=== PATIENT | female | born 1955 | race Caucasian/White ===

== ENCOUNTER → 2016-10-29 | Outpatient (CLI) | payer MEDICAID ==
[~2016-10-29] MED LIST: 'CLONIDINE0.1 MG PO; AMLODIPINE BESY10 MG PO; ANAPROX DS550 MG PO; ANTIVERT/2525 MG PO; APRESOLINE25 MG PO; ASPIRIN81 M1 PO; AUGMENTIN 875 M1 TAB PO; AVELOX400 MG PO; BACTRIM DS 8001 TA1 PO; BACTROBAN OINT0.9 GM T; BUMETANIDE1 MG IV; BUMETANIDE1 MG PO; BUMETANIDE2 MG PO; BUMEX2.5 MG/10 PO; CEFOXITIN IJ; CEFTIN500 M1 PO; CIPRO500 MG PO; CIPRO750 MG PO; CIPROFLOXACIN500 MG PO; CLARITIN10 MG PO; CLEOCIN PH600 MG/4 M IV; CLONIDINE HCL0.1 MG PO; CLONIDINE0.1 MG PO; CYMBALTA30 MG PO; DAYPRO600 M1 PO; DEXTROSE 50 ML50 M3 IV; DITROPAN XL5 MG PO; DITROPAN5 MG PO; DUONEB 3 MG/3 ML3 M1 NEB; FENOFIBRATE160 MG PO; FERREX 150150 MG PO; FIORICET 325 MG1 TAB PO; FLONASE ALLERG9.9 ML NAS; Ferrex 150150 MG PO; GABAPENTIN300 MG PO; GLYBURIDE5 MG PO; GUAIFENESIN600 MG PO; HUMALOG100 U/ML SC; HUMULIN 70/30 703 M1 SC; HUMULIN 70/30 703 M1 SQ; HUMULIN 70/30 PE3 ML SC; HUMULIN 70100 UNIT/1 SC; HUMULIN 70100 UNIT/1 SQ; HUMULIN R100 U/ML SC; HYDRALAZINE HC100 MG PO; HYDRALAZINE HYD50 MG PO; HYDROCODONE BIT1 T11 PO; Hydralazine Hyd25 MG PO; INDOCIN50 MG PO; INSULIN NOVOLOG SC; INSULIN REGULAR SQ; JANUVIA100 MG PO; KEFLEX500 MG PO; LABETALOL HCL100 MG PO; LABETALOL200 MG PO; LANTUS100 U/ML SC; LASIX40 MG PO; LISINOPRIL10 M1 PO; LISINOPRIL40 MG PO; LOFIBRA160 MG PO; LOPRESSOR25 MG PO; LOVASTATIN40 MG PO; MACROBID100 M1 PO; METOPROLOL25 MG PO; MUCINEX ER600 MG PO; MUSCLE RUB CRE113 GM TP; NEURONTIN300 MG PO; NITROGLYCER0.2 MG/HR TD; NORCO 5-325 TA1 EACH PO; NORMODYNE,TRAN200 MG PO; NORVASC2.5 MG PO; NOVAFERRUM 5050 MG PO; NOVAPLUS CLINDA1 SO1 IV; NOVOLIN 70100 UNIT/1 SQ; NOVOLOG MI100 UNIT/2 SC; NOVOLOG1 UNIT/0.0 IJ; NOVOLOG100 U/ML SC; OMEPRAZOLE40 MG PO; OS-CAL 500+D31 EAC1 PO; OXYBUTYNIN CHLOR5 MG PO; OXYGEN NAS; OYSTER CALCIUM500 M1 PO; Oscal,Oyster S500 MG PO; PEN-VEE K500 MG PO; PHOSLO667 MG PO; PRAMIPEXOLE DI0.5 MG PO; PREDNISONE5 MG; PRILOSEC20 M1 PO; PRILOSEC20 MG PO; REGLAN5 MG PO; SERTRALINE50 MG PO; TAMIFLU 75MG CA75 MG PO; TRICOR145 MG PO; Transderm-Nitr0.2 MG T; VICO10300 PO; VICODIN 5-3001 EACH PO; VICODIN 5/500 505 MG PO; VICODIN 500 MG-1 TAB PO; VITAMIN D1000 IU PO; VITAMIN D400 I1 PO; VITAMIN D50000 I3 PO; Vicodin 5/500 505 MG PO; ZOFRAN ODT8 MG PO; ZOFRAN4 MG PO; ZOLOFT50 MG PO; Zestril,Prinivi40 MG PO; Zofran4 MG PO
== END | disposition home or self-care (01) ==
LOC: MRI 02:10
DX: S91.101A Unspecified open wound of right great toe without damage to nail, initial encounter (principal); M86.8X7 Other osteomyelitis, ankle and foot; M62.571 Muscle wasting and atrophy, not elsewhere classified, right ankle and foot; X58.XXXA Exposure to other specified factors, initial encounter; Y93.89 Activity, other specified; Y92.89 Other specified places as the place of occurrence of the external cause; Y99.8 Other external cause status

== ENCOUNTER 2017-02-27 12:48 | Inpatient (IN) | payer MEDICAID ==
[~2017-02-27] VITALS: Ht 157.4 cm; Wt 102.7 kg
--- NOTE | ~2017-02-27 | WRIGHTHP ---
[place], [place] PATIENT HISTORY AND PHYSICAL EXAM NAME: SHERITA GOODEN [facility] #: [id number] UNIT #: [id number] ROOM: 426 DOCTOR: VALARIE BAPTISTE MD BIRTHDATE: [birth year] DOS: 02/27/2017 HISTORY OF PRESENT ILLNESS: The patient is 62 years old. The patient is very well known to us. The patient had her breakfast. Her blood sugar was 58 yesterday morning. She had her breakfast, which included toast, coffee and eggs and then took her 70/30 insulin, in about an hour or so her brother found her unresponsive with a blood sugar of 22, ambulance was called and brought to the emergency room. She denies having any chest pains, palpitations or shortness of breath. Denies having any fever or chills. She has been taking her blood sugars and it has been running low the last few days but has still been taking her regular dose of medicines without any reduction. PAST MEDICAL HISTORY: 1. Brittle diabetes type 2. 2. Chronic renal failure, stage 4. 3. Benign hypertension. 4. Failure to thrive. 5. Mixed hyperlipidemia. 6. Charcot joint. 7. Chronic pain from peripheral neuropathy. MEDICATIONS: She is on are Elavil 25 q.h.s., Bumex 2 mg b.i.d., duloxetine 30 daily, Os-Ander 500 daily, gabapentin 400 at bedtime, hydralazine 100 b.i.d., [place] 5 q.6h., labetalol 300 b.i.d., lisinopril 10 daily, lovastatin 40 daily, metoclopramide 5 t.i.d., omeprazole 20 daily, oxybutynin 5 daily, Requip 1 mg at bedtime; insulin 70/30, 25 units b.i.d.; nitroglycerin 0.2 mg daily. SOCIAL HISTORY: Nonsmoker, does not use any alcohol. PHYSICAL EXAMINATION: GENERAL: She is awake and alert and oriented. VITAL SIGNS: Blood pressure is 148/45, pulse of 75, respirations 18, temperature 98.4. LUNGS: Clear. HEART: Regular. ABDOMEN: Obese, soft, nontender. EXTREMITIES: Without any edema. LIZETH hose stockings bilaterally. ASSESSMENT AND PLAN: 1. The patient who has type 2 diabetes mellitus, which is brittle, presents with severe hypoglycemia. Sugars have been running in the 200s in the hospital so far. We will restart the 70/30 insulin. Did advise the patient that she should not be taking 25 units if her blood sugar is 58. 2. Benign hypertension, controlled. 3. Chronic pain, stable. Urinalysis will be done today. [place], [place] PATIENT HISTORY AND PHYSICAL EXAM [facility]: [facility] #: [id number] UNIT #: [id number] ROOM: 426 DOCTOR: VALARIE BAPTISTE MD BIRTHDATE: [birth year] VALARIE BAPTISTE MD CM:HISPHYS:PATIENT HISTORY AND PHYSICAL EXAMINATION [id number] VALARIE BAPTISTE MD 02/28/17 1440 interface
--- NOTE | ~2017-02-27 | DS ---
[place], [place] DISCHARGE SUMMARY NAME: SHERITA GOODEN [facility] #: [id number] UNIT #: [id number] ROOM: 426 DOCTOR: VALARIE BAPTISTE MD BIRTHDATE: [birth year] DOS: 03/01/2017 DIAGNOSES: 1. Type 2 diabetes mellitus, insulin-dependent with hypoglycemia. 2. Urinary tract infection, urine culture pending. 3. Benign hypertension. 4. Chronic renal failure. 5. Poor insight to medical problems. 6. Mixed hyperlipidemia. 7. Charcot joint. 8. Chronic pain from peripheral neuropathy. MEDICATIONS: Same as on admission. The only new prescription given was Ceftin 250 twice daily for 5 days. HOSPITAL COURSE: The patient is 62 years old, comes in with extreme hypoglycemia of 22, her blood sugar was 58 before breakfast, she did not do her breakfast and took the whole 25 units of 70/30 insulin and in an hour her blood sugar dropped to 22. She was found unresponsive by her brother and ambulance was called and brought to the emergency room. IV was not established en route, but she was given p.o. glucose after admission. Blood sugars have been checked every 2 hours, coverage was given. Urine was sent for culture, did not have the results yet, but the urinalysis is coming back positive. The patient is stable without any new problems and the plan is to continue the same insulin as she was prior to admission, but she is advised to cut back on the dosage if the blood sugar is below 100. The patient does not have any other complaints. Blood pressures are controlled and hemodynamically she is stable. There is no fever or toxicity. The plan therefore is to discharge her to home to follow up as an outpatient. VALARIE BAPTISTE MD CM:DISCHARG [phone] VALARIE BAPTISTE MD 03/01/17 1309 interface
--- NOTE | ~2017-02-27 | PR ---
[place], [place] PROGRESS NOTE [facility] [id number] UNIT #: [id number] ROOM: 426 DOCTOR: VALARIE BAPTISTE MD BIRTHDATE: [birth year] DOS: SUBJECTIVE: The patient is not having any new complaints. She did not have any hypoglycemic spells after admission. OBJECTIVE: VITAL SIGNS: Graphic trend shows pressure 161/54, pulse of 66, respirations 20, temperature 98. LUNGS: Clear. HEART: Regular. ABDOMEN: Obese, soft, nontender. EXTREMITIES: Without any edema. LABORATORY DATA: Urinalysis showed nitrite and leukocyte esterase positivity. Cultures are not available yet. ASSESSMENT AND PLAN: 1. Type 2 diabetes mellitus, brittle with hypoglycemia, which is corrected. The last few blood sugar readings were 303, 201 and 209. 2. Possible urinary tract infection. Urine culture has been sent, but patient will be placed on Ceftin. The patient is stable and can be discharged to home today. VALARIE BAPTISTE MD CM:PNTRANS [phone] VALARIE BAPTISTE MD 03/01/17 1315 interface
--- NOTE | 2017-02-27 13:08 | NUR ---
PT SITTING UP IN BED AWAKE ALERT ORIENTED BRTOTHER IN ROOM WITH PATIENT CALL LIGHT IN REACH
[2017-02-27 13:13] VITALS: BP 110/42
[2017-02-27 13:15] LABS: BASO # 0.1 10*3/uL (0.0-0.1); BASO % 0.6 % (0.0-1.0); EOS # 0.6 10*3/uL (0.0-0.4); EOS % 6.5 % (1.0-4.0); HEMATOCRIT 27.5 % (37.0-47.0); HEMOGLOBIN 8.7 g/dl (12.0-16.0); LYMPH # 1.6 10*3/uL (1.3-4.4); LYMPH % 17.5 % (27.0-41.0); MEAN CELL VOLUME 89.6 fl (81.0-99.0); MEAN CORPUSCULAR HGB 28.3 pg (27.0-31.0); MEAN CORPUSCULAR HGB CONC 31.6 g/dl (33.0-37.0); MEAN PLATELET VOLUME 9.2 fl (9.6-12.3); MONO # 0.9 10*3/uL (0.1-1.0); MONO % 10.2 % (3.0-9.0); NEUT # 5.8 10*3/uL (2.3-7.9); NEUT % 64.5 % (47.0-73.0); PLATELET COUNT AUTOMATED 304 10*3/uL (130-400); RED BLOOD COUNT 3.07 10*6/uL (4.10-5.10); RED CELL DISTRI WIDTH 13.6 % (0-14.5)
--- NOTE | 2017-02-27 13:18 | NUR ---
pt to ct scan no distress noted
[2017-02-27 13:25] LABS: ACT PARTIAL THROMBO TIME 25.8 SECONDS (20.8-31.5)
[2017-02-27 13:32] LABS: ALBUMIN 3.4 gm/dl (3.1-4.5); CREATININE 2.92 mg/dL (0.55-1.02); POTASSIUM 4.2 mmol/L (3.5-5.1); TOTAL PROTEIN 7.2 gm/dL (6.4-8.2); TROPONIN I 0.019 ng/ml (<0.045)
[2017-02-27 13:35] VITALS: BP 125/48
[2017-02-27 14:21] VITALS: BP 125/48
--- NOTE | 2017-02-27 14:45 | NUR ---
A 62, admitted to , under the services of VALARIE Mai MD with a diagnosis of UNRESPONSIVENESS. Chief complaint is HYPOGLYCEMIA'. Patient arrived via stretcher from ER. Monitor applied. Initial assessment completed. Vital signs taken and recorded. VALARIE MAI MD notified of admission to the unit. Orders received. See assessment for past medical history, medications and allergies. Patient and/or family oriented to unit. [facility]. Clothing/patient valuable form completed. JOJO HIDALGO
[2017-02-27] MEDS ORDERED: NOVOLIN 70100 UNIT/1 SQ (15:22)
[2017-02-27] MEDS ORDERED: LABETALOL HCL300 MG PO (15:54)
[2017-02-27] MEDS ORDERED: GABAPENTIN400 MG PO (15:55)
[2017-02-27] MEDS ORDERED: REQUIP1 M1 PO (15:55)
[2017-02-27 16:00] VITALS: BP 128/62
[2017-02-27] MEDS ORDERED: AMITRIPTYLINE25 MG PO (16:03)
[2017-02-27 20:00] VITALS: BP 151/45
--- NOTE | 2017-02-27 20:00 | NUR ---
PATIENT RESTING IN CHAIR AT BEDSIDE. WATCHING TV. NO NEEDS MADE. BED IN LOWEST POSITION, CALL LIGHT IN REACH
[2017-02-28] VITALS: BP 148/45
--- NOTE | 2017-02-28 00:40 | NUR ---
PATIENT RESTING IN CHAIR AT BEDSIDE WITH EYES CLOSED. NO S/S OF DSITRESS. BED IN LOWEST POSITION, CALL LIGHT IN REACH
--- NOTE | 2017-02-28 03:36 | NUR ---
24 HR chart check completed.
--- NOTE | 2017-02-28 04:17 | NUR ---
PATIENT REFUSING 0400 INSULIN
[2017-02-28 08:00] VITALS: BP 136/56
[2017-02-28 12:00] VITALS: BP 156/44
[2017-02-28 14:47] LABS: BILIRUBIN NEGATIVE (NEGATIVE); BLOOD NEGATIVE (NEGATIVE); CLARITY CLEAR (CLEAR); COLOR YELLOW (YELLOW); GLUCOSE 2+ (NEGATIVE); KETONE NEGATIVE (NEGATIVE); LEUKO ESTERASE 2+ (NEGATIVE); NITRITE POSITIVE (NEGATIVE); PH 5.5 (5.0-9.0); UROBILINOGEN 0.2 E.U./dl (0.2-1.0)
[2017-02-28 15:03] LABS: BACTERIA 2+; RBC 0-2 rbc/hpf (0-2); WBC TNTC wbc/hpf (0-5)
[2017-02-28 16:00] VITALS: BP 137/51
--- NOTE | 2017-02-28 19:39 | NUR ---
PATIENT SITTING IN CHAIR AT BEDSIDE WITH NO NEEDS MADE. WATCHING TV. BED IN LOWEST POSITOIN, CALL LIGHT IN REACH
[2017-02-28 20:00] VITALS: BP 158/45
[2017-03-01] VITALS: BP 161/54
--- NOTE | 2017-03-01 00:40 | NUR ---
24 HR chart check completed.
--- NOTE | 2017-03-01 01:35 | NUR ---
PATIENT RESTING IN CHAIR WITH NO S/S OF DISTRESS. RESPS EASY AND REGULAR. BED IN LOWEST POSTITION, CALL LIGHT IN REACH
[2017-03-01 08:00] VITALS: BP 137/42
--- NOTE | 2017-03-01 08:00 | NUR ---
PT HAS SKIN TEAR TO TOE, DOES NOT WANT PHOTOGRAPHED, DOES NOT CURRENTLY HAVE WOUND ORDERS OTHER THAN CLEAN AND DRESS WITH BANDAID. PT AWARE MAY CONTINUE TO KEEP COVERED WITH BANDAID AT HOME.
[2017-03-01] MEDS ORDERED: CEFUROXIME AXE250 MG PO (08:08)
--- NOTE | 2017-03-01 08:30 | NUR ---
Control Supervisor in to talk to patient. Patient states lives at HOME with HER BROTHER. There are 0 steps in the home. Physician: DR BAPTISTE Pharmacy: [facility] health services: NONE Patient's level of ADLs: MINIMAL ASSIST Patient has working utilities: YES DME: NONE Follow-up physician's appointment after d/c: PREFERS TO MAKE HER OWN APPT Does patient want to access PORTAL?: Discharge plan HOME. FLAVIA JAMES DENIES ANY DC NEEDS.
--- NOTE | 2017-03-01 08:52 | NUR ---
PT IS TO BE D/C HOME TODAY. CARDIACD MONITOR OFF AND IV LEFT FA OUT- DRESSING APPLIED.
--- NOTE | 2017-03-01 09:30 | NUR ---
Discharge instructions reviewed with patient. Patient receptive and verbalizes understanding. Follow-up care understood. Written instructions given to patient. pt understands to pickle cutter new rx at pharmacy. understands insulin, no questions at this time YOLANDA DHILLON
== END 2017-03-01 09:30 | disposition home or self-care (01) | DRG 638 ==
LOC: ED 12:48 → EDHOLD 14:02 → 4E 14:02
PROVIDERS: Nurse Practitioner Family; ADMIT Internal Medicine
DX: E11.649 Type 2 diabetes mellitus with hypoglycemia without coma (principal); N39.0 Urinary tract infection, site not specified; N18.4 Chronic kidney disease, stage 4 (severe); E11.22 Type 2 diabetes mellitus with diabetic chronic kidney disease; E11.610 Type 2 diabetes mellitus with diabetic neuropathic arthropathy; I13.0 Hypertensive heart and chronic kidney disease with heart failure and stage 1 through stage 4 chronic kidney disease, or unspecified chronic kidney disease; I50.9 Heart failure, unspecified; J44.9 Chronic obstructive pulmonary disease, unspecified; D64.9 Anemia, unspecified; E78.2 Mixed hyperlipidemia; E11.42 Type 2 diabetes mellitus with diabetic polyneuropathy; G89.29 Other chronic pain; Z79.4 Long term (current) use of insulin; Z91.041 Radiographic dye allergy status; Z88.2 Allergy status to sulfonamides; Z88.8 Allergy status to other drugs, medicaments and biological substances; Z90.49 Acquired absence of other specified parts of digestive tract; Z90.710 Acquired absence of both cervix and uterus; Z98.51 Tubal ligation status; Z87.891 Personal history of nicotine dependence; Z82.49 Family history of ischemic heart disease and other diseases of the circulatory system; Z80.1 Family history of malignant neoplasm of trachea, bronchus and lung; Z82.0 Family history of epilepsy and other diseases of the nervous system; Z82.5 Family history of asthma and other chronic lower respiratory diseases

== ENCOUNTER 2017-03-27 20:22 | Inpatient (IN) | payer MEDICAID ==
[~2017-03-27] VITALS: Ht 157.4 cm; Wt 102.7 kg
--- NOTE | ~2017-03-27 | PR ---
[place], [place] PROGRESS NOTE NAME: SHERITA GOODEN [facility] #: [id number] UNIT #: [id number] ROOM: 523 DOCTOR: ROSA PIPER MD BIRTHDATE: [birth year] DOS: 03/31/2017 SUBJECTIVE: The patient continues to improve. OBJECTIVE: VITAL SIGNS: Blood pressure 157/72, heart rate of 66 beats per minute, breathing 16 times per minute, temperature 98 degrees Fahrenheit. GENERAL APPEARANCE: The patient is alert and oriented x 3, in no visible distress, except for generalized weakness. HEENT AND NECK: Exam within normal limits. CARDIOVASCULAR SYSTEM: Heart rate is regular in rate and rhythm. S1 and S2 normally audible. LUNGS: Clear to auscultation. ABDOMEN: Soft, nontender. No obvious organomegaly. Bowel sounds are present. EXTREMITIES: Without significant cyanosis or edema. IMPRESSION: 1. The patient's acute over chronic kidney failure continues to improve with hydration with normal saline. I will repeat her serum electrolytes and BUN and creatinine tomorrow. 2. Urinary tract infections, Citrobacter amalonaticus sensitive to ceftriaxone, which is being given. 3. Major depression, recurrent, mild, being treated and controlled with Cymbalta 4. Mixed hyperlipidemia. The patient on lovastatin. 5. Advance adult failure to thrive. The patient working with Physical Therapy. 6. Uncontrolled type 2 diabetes mellitus. Blood sugars being monitored and treated. ROSA PIPER MD CM:PNTRANS [id number] ROSA PIPER MD 03/31/17 1546 interface
--- NOTE | ~2017-03-27 | WRIGHTHP ---
[place], [place] PATIENT HISTORY AND PHYSICAL EXAM NAME: SHERITA GOODEN [facility] #: [id number] UNIT #: [id number] ROOM: 523 DOCTOR: ROSA PIPER MD BIRTHDATE: [birth year] DOS: 03/27/2017 HISTORY OF PRESENT ILLNESS: The patient is a 62-year-old female with a history of: 1. Adult failure to thrive. 2. Type 2 diabetes mellitus. 3. Benign essential hypertension. 4. Chronic kidney disease stage 3. 5. Peripheral polyneuropathy with chronic pains. 6. Charcot joints. 7. Type 2 diabetes mellitus, insulin requiring. 8. Mixed hyperlipidemia. 9. The patient with urinary incontinence. 10. Diabetic gastroparesis. The patient presented to the Emergency Department at [facility] with failure to thrive, increasing weakness, poor appetite and feeling unwell for a few days and she was found to be in acute renal failure with BUN and creatinine of 101 and 3.8 apparently from not eating well recently and she already has diabetic nephropathy and chronic kidney disease. After admission, the patient states she is starting to feel better and eating better. No chest pain. No increasing shortness of breath. No other GI or urinary symptoms. REVIEW OF SYSTEMS: LUNGS: No increasing shortness of breath or wheezing. GASTROINTESTINAL: No nausea or vomiting, but poor appetite. No diarrhea or constipation. CARDIOVASCULAR: No chest pains or palpitations. FAMILY HISTORY: Noncontributory. MEDICATIONS: The patient takes insulin, hydralazine, labetalol, lisinopril, metoclopramide, omeprazole, oxybutynin, ropinirole and Cymbalta. ALLERGIES: Known allergies to IODINE, SULFUR. PHYSICAL EXAMINATION: GENERAL: Alert, oriented, not a very good historian, in no visible distress. The patient has generalized weakness. HEENT AND NECK: Extraocular movements are intact. Sclerae are anicteric. Oral mucosa is moist and clean. No obvious facial weakness. Neck is supple without any lymphadenopathy. No thyromegaly. No JVD. No carotid arterial bruits. LUNGS: Clear to auscultation. No wheezing. No rhonchi. CARDIOVASCULAR SYSTEM: Heart rate is regular in rate and rhythm. S1 and S2 normally audible. No significant murmur or any other abnormal cardiac sounds. ABDOMEN: Soft, nontender. No obvious organomegaly. Bowel sounds are present. No obvious herniation. EXTREMITIES: Without significant cyanosis or edema. Warm to touch. Right [place], [place] PATIENT HISTORY AND PHYSICAL EXAM NAME: SHERITA GOODEN [facility] #: [id number] UNIT #: [id number] ROOM: 523 DOCTOR: ROSA PIPER MD BIRTHDATE: [birth year] great toe chronic infected wound without any bone involvement on x-ray at admission. CENTRAL NERVOUS SYSTEM: Alert and oriented x 3. Cranial nerves II-XII are intact. Speech is normal. The patient is able to move all extremities. Normal muscle strength. Deep tendon reflexes are equal on both sides. Plantars were downgoing. LABORATORY DATA: BUN and creatinine elevated to 101 and 3.8 and improving. Hemoglobin 9.6. IMPRESSION: 1. The patient with chronic right toe wound infection, being treated and followed at the wound center. 2. Acute tubular necrosis and acute kidney failure with elevation of BUN and creatinine to 101 and 3.8, to be treated with hydration with normal saline. Apparently, the acute kidney failure is because of her chronic diabetic nephropathy and dehydration from the patient feeling sick and not eating well for last several days. I will follow her kidney function on daily basis with a basic metabolic profile. 3. Type 2 diabetes mellitus. Blood sugars to be monitored and treated. The patient kept on no concentrated sweet diet. Her blood sugars are elevated, ranging between 190 to 300 range. I will adjust treatment as necessary. I continued her home dose of insulin and kept her on a no concentrated sweet diet. 4. Benign essential hypertension. I will monitor blood pressures and treat accordingly. ROSA PIPER MD CM:HISPHYS:PATIENT HISTORY AND PHYSICAL EXAMINATION 19 ROSA PIPER MD 03/30/17 1030 interface
--- NOTE | ~2017-03-27 | PR ---
[place], [place] PROGRESS NOTE NAME: SHERITA GOODEN [facility] #: [id number] UNIT #: [id number] ROOM: 523 DOCTOR: ROSA PIPER MD BIRTHDATE: [birth year] DOS: 03/29/2017 SUBJECTIVE: The patient is starting to feel much better. She has no new complaints. OBJECTIVE: VITAL SIGNS: Blood pressure 175/57, heart rate 61 beats per minute, breathing normally, afebrile. GENERAL APPEARANCE: The patient is alert and oriented x 3, in no visible distress, except for some obesity and generalized weakness. HEENT AND NECK: Exam within normal limits. CARDIOVASCULAR SYSTEM: Heart rate is regular in rate and rhythm. S1 and S2 normally audible. LUNGS: Clear to auscultation. ABDOMEN: Soft, nontender. No obvious organomegaly. Bowel sounds are present. EXTREMITIES: Without significant cyanosis or edema. IMPRESSION: 1. The patient with urinary tract infection, urine growing heavy gram-negative bacilli, to be treated with IV Rocephin and we will wait for urine culture results. Blood cultures also have been negative so far and no significant leukocytosis. 2. Acute over chronic kidney failure, acute tubular necrosis with elevation of BUN and creatinine, which is improving with hydration with normal saline. 3. Uncontrolled type 2 diabetes mellitus. Blood sugars are being monitored and better controlled, 125 on the basic metabolic profile today, now ranging between 130 to 240 mostly, occasionally higher. 4. Obesity and adult failure to thrive. 5. Benign Essential hypertension. Blood pressure is elevated. I will adjust her treatment and continue her home medications. 6. Mixed hyperlipidemia, treated with lovastatin. 7. Major depression, recurrent, mild. We treated and controlled with Cymbalta. ROSA PIPER MD CM:PNTRANS [phone] ROSA PIPER MD 03/29/172203 interface
--- NOTE | ~2017-03-27 | PR ---
[place], [place] PROGRESS NOTE NAME: SHERITA GOODEN [facility] #: [id number] UNIT #: [id number] ROOM: 523 DOCTOR: ROSA PIPER MD BIRTHDATE: [birth year] DOS: 03/30/2017 SUBJECTIVE: The patient continues to improve. She is starting to feel better. OBJECTIVE: VITAL SIGNS: Blood pressure 146/72, heart rate 60 beats per minute, breathing 16 times per minute, temperature 98 degrees Fahrenheit. GENERAL APPEARANCE: The patient is alert and oriented x 3, in no visible distress, except for generalized weakness, morbid obesity. HEENT AND NECK: Exam within normal limits. CARDIOVASCULAR SYSTEM: Heart rate is regular in rate and rhythm. S1 and S2 normally audible. LUNGS: Clear to auscultation. ABDOMEN: Soft, nontender. No obvious organomegaly. Bowel sounds are present. EXTREMITIES: Without significant cyanosis or edema. IMPRESSION: 1. The patient with acute over chronic kidney disease and acute tubular necrosis, continues to improve with hydration and normal saline. BUN and creatinine of 70 and 2.5 today with normal serum electrolytes. 2. Urinary tract infection with Citrobacter amalonaticus sensitive to ceftriaxone, which she is receiving. 3. Major depression, recurrent, mild, being treated and controlled with Cymbalta. 4. Mixed hyperlipidemia, treated with lovastatin. 5. Adult failure to thrive. 6. Uncontrolled type 2 diabetes mellitus. Blood sugars are being monitored and treated. ROSA PIPER MD CM:PNTRANS [phone] ROSA PIPER MD 03/30/172101 interface
--- NOTE | ~2017-03-27 | DS ---
[place], [place] DISCHARGE SUMMARY NAME: SHERITA GOODEN [facility] #: [id number] UNIT #: [id number] ROOM: 523 DOCTOR: ROSA PIPER MD BIRTHDATE: [birth year] DOS: 04/01/2017 DISCHARGE DIAGNOSES: 1. Acute over chronic kidney failure, improved with hydration. 2. Uncontrolled type 2 diabetes mellitus. 3. Adult failure to thrive. 4. Mixed hyperlipidemia. 5. Major depression, recurrent, mild. 6. Urinary tract infection with Citrobacter amalonaticus, treated with ceftriaxone. 7. Benign essential hypertension. 8. Chronic kidney disease stage 3. 9. Peripheral polyneuropathy and chronic pain. 10. Charcot joints. 11. Chronic urinary incontinence. 12. Diabetic gastroparesis. HOSPITAL COURSE: The patient was admitted at [facility] when she presented with poor appetite and feeling unwell for a few days and she was not eating well and her creatinine was found to be elevated to 3.8, stage 4 acute renal failure. The patient was admitted and started on hydration with normal saline and her kidney function has improved. The patient with underlying stage 3 chronic kidney disease. Apparently, she went into acute tubular necrosis from being sick and not getting hydrated and not eating well for a few days. The patient with underlying diabetic nephropathy stage 3, which makes her prone to kidney damage. The patient appears to have achieved maximal benefit from this admission and will be discharged to home today to follow up with her PCP, Dr. Johnson within a week. The patient has been asked to avoid any nephrotoxic medications, especially nonsteroidal anti-inflammatory medications. Urinary tract infection with Citrobacter amalonaticus sensitive to ceftriaxone, which was treated with the antibiotic. Blood cultures were negative. Uncontrolled type 2 diabetes mellitus, with poor compliance with diet. Blood sugars have improved with treatment. LABORATORY DATA: BUN and creatinine have improved to 37 and 1.7 prior to discharge. Hemoglobin of 9.6. DISCHARGE MANAGEMENT: Cymbalta 30 mg a day, ropinirole 1 mg daily, oxybutynin 2.5 mg b.i.d., omeprazole 20 mg daily, metoclopramide 5 mg t.i.d., lisinopril 10 mg a day, labetalol 300 mg b.i.d., hydralazine 100 mg b.i.d., Vicodin every 6 hours as needed p.r.n. for pain, gentamicin eyedrops to right eye daily. [place], [place] DISCHARGE SUMMARY NAME: SHERITA GOODEN UNIT #: [id number] ROOM: 523 DOCTOR: ROSA PIPER MD BIRTHDATE: [birth year] ROSA IPPER MD CM:DISCHARG 48 30 ROSA PIPER MD 04/01/172031 interface
[~2017-03-27 20:22] MED LIST changes: +AMITRIPTYLINE25 MG PO; +CEFUROXIME AXE250 MG PO; +GABAPENTIN400 MG PO; +LABETALOL HCL300 MG PO; +REQUIP1 M1 PO
[2017-03-27 20:29] VITALS: BP 152/45
[2017-03-27 21:03] VITALS: BP 155/53
[2017-03-27 21:19] LABS: BASO % 0.4 % (0.0-1.0); EOS # 0.6 10*3/uL (0.0-0.4); EOS % 6.5 % (1.0-4.0); HEMATOCRIT 30.3 % (37.0-47.0); HEMOGLOBIN 9.7 g/dl (12.0-16.0); LYMPH # 2.2 10*3/uL (1.3-4.4); LYMPH % 22.1 % (27.0-41.0); MEAN CELL VOLUME 88.6 fl (81.0-99.0); MEAN CORPUSCULAR HGB 28.4 pg (27.0-31.0); MEAN PLATELET VOLUME 10.2 fl (9.6-12.3); MONO # 1.2 10*3/uL (0.1-1.0); MONO % 12.6 % (3.0-9.0); NEUT # 5.7 10*3/uL (2.3-7.9); NEUT % 57.9 % (47.0-73.0); PLATELET COUNT AUTOMATED 314 10*3/uL (130-400); RED BLOOD COUNT 3.42 10*6/uL (4.10-5.10); RED CELL DISTRI WIDTH 13.3 % (0-14.5); WHITE BLOOD COUNT 9.8 10*3/uL (4.8-10.8)
[2017-03-27 21:34] LABS: ACT PARTIAL THROMBO TIME 23.5 SECONDS (20.8-31.5)
[2017-03-27 21:35] LABS: ALBUMIN 3.7 gm/dl (3.1-4.5); ALKALINE PHOSPHATASE 126 U/L (45-117); BUN 101 mg/dl (7-24); CHLORIDE 100 mmol/L (98-107); CREATININE 3.82 mg/dL (0.55-1.02); POTASSIUM 4.7 mmol/L (3.5-5.1); SGOT/AST 18 IU/L (3-35); SGPT/ALT 21 U/L (12-78); SODIUM 138 mmol/L (136-145); TOTAL PROTEIN 7.8 gm/dL (6.4-8.2)
[2017-03-27 21:38] LABS: TROPONIN I < 0.015 ng/ml (<0.045)
[2017-03-27 22:57] VITALS: BP 133/56
[2017-03-28] VITALS: BP 122/60
--- NOTE | 2017-03-28 01:29 | NUR ---
PT'S GLUCOSE 430 AT 0110. INSULIN GIVEN REQUESTED BY DR. PIPER. WILL CONINUE TO MONITOR PT.
[2017-03-28 03:08] LABS: BILIRUBIN NEGATIVE (NEGATIVE); BLOOD NEGATIVE (NEGATIVE); CLARITY SL CLOUDY (CLEAR); COLOR YELLOW (YELLOW); GLUCOSE 2+ (NEGATIVE); KETONE NEGATIVE (NEGATIVE); LEUKO ESTERASE 3+ (NEGATIVE); NITRITE POSITIVE (NEGATIVE); PH 5.5 (5.0-9.0); UROBILINOGEN 0.2 E.U./dl (0.2-1.0)
--- NOTE | 2017-03-28 03:10 | NUR ---
PT'S GLUCOSE CHECKED AGAIN TO SE EHOW INSULIN IS WORKING. PT'S GLUCOSE DOWN TO 379 IN AN HOUR. WILL RECHECK PERIODICALLY.
[2017-03-28 03:13] LABS: EPITHELIAL CELLS 15-20; WBC 41-50 wbc/hpf (0-5)
[2017-03-28 03:14] LABS: BACTERIA 2+
[2017-03-28 06:24] LABS: BASO # 0.1 10*3/uL (0.0-0.1); BASO % 0.5 % (0.0-1.0); EOS # 0.5 10*3/uL (0.0-0.4); EOS % 4.7 % (1.0-4.0); HEMATOCRIT 30.1 % (37.0-47.0); HEMOGLOBIN 9.6 g/dl (12.0-16.0); LYMPH # 1.4 10*3/uL (1.3-4.4); MEAN CELL VOLUME 89.6 fl (81.0-99.0); MEAN CORPUSCULAR HGB 28.6 pg (27.0-31.0); MEAN CORPUSCULAR HGB CONC 31.9 g/dl (33.0-37.0); MEAN PLATELET VOLUME 10.3 fl (9.6-12.3); MONO # 0.9 10*3/uL (0.1-1.0); MONO % 8.6 % (3.0-9.0); NEUT # 7.2 10*3/uL (2.3-7.9); NEUT % 71.6 % (47.0-73.0); PLATELET COUNT AUTOMATED 302 10*3/uL (130-400); RED BLOOD COUNT 3.36 10*6/uL (4.10-5.10); RED CELL DISTRI WIDTH 13.2 % (0-14.5); WHITE BLOOD COUNT 10.1 10*3/uL (4.8-10.8)
[2017-03-28 07:03] LABS: POTASSIUM 4.6 mmol/L (3.5-5.1)
[2017-03-28 07:07] LABS: CREATININE 3.65 mg/dL (0.55-1.02)
[2017-03-28 08:00] VITALS: BP 142/72; BP 149/48
--- NOTE | 2017-03-28 09:55 | NUR ---
OOB TO CHAIR, CALL LIGHT SYSTEM WITHIN REACH.
--- NOTE | 2017-03-28 10:12 | NUR ---
OOB TO CHAIR, CALL LIGHT SYSTEM WITHIN REACH.
[2017-03-28 12:00] VITALS: BP 140/62
--- NOTE | 2017-03-28 14:10 | NUR ---
DR PIPER IN TO SEE PT & MADE AWARE THAT PTS BLOOD SUGARS ARE RUNNING HIGH. QUESTIONED WHETHER OR NOT HE WANTED A SLIDING SCALE.
--- NOTE | 2017-03-28 14:48 | NUR ---
DISCUSSED WOUND CARE ORDERS WITH DR PIPER FOR THIS PT & PER DR PIPER, SINCE PT SEE'S A ENGRAVER RUBBER, TO CONTINUE TO HER NORMAL ROUTINE FOR WOUND CARE WHICH IS FROM DR MAYA IN [facility]. GENTAMYCIN DRSNG DAILY PER PT.
[2017-03-28 16:00] VITALS: BP 166/48
--- NOTE | 2017-03-28 16:12 | NUR ---
DR PIPER AWARE OF BS RESULTS, PREFERS NOT TO GIVE INSULIN COVERGE, STATES HE WILL MONITOR BS TRENDS & ADJUST 70/30 ACCORDINGLY.
[2017-03-28 20:00] VITALS: BP 143/66
--- NOTE | 2017-03-28 20:21 | NUR ---
PATIENT AWAKE SITTING UP IN CHAIR. PATIENT DENIES ANY PAIN/GENERALIZED DISCOMFORT AT THIS TIME. WILL MONITOR. CALL LIGHT LEFT IN REACH.
[2017-03-28] MEDS ORDERED: NORCO 5-325 TA1 EACH PO (21:37)
--- NOTE | 2017-03-28 21:45 | NUR ---
SPOKE TO REGARDING PATIENT'S REQUEST FOR NORCO, WHICH SHE TAKES AT HOME FOR ARTHRITIC PAIN. INSTRUCTED TO CONTINUE PATIENT'S NORCO 5/325 Q6H PRN FOR PAIN.
--- NOTE | 2017-03-28 22:00 | NUR ---
PO NORCO ADMINISTERED PER PRN ORDER FOR C/O ARTHRITIC PAIN IN LEFT LEG. PATIENT RATING IT 9/10. WILL MONITOR EFFECTIVENESS. CALL LIGHT LEFT IN REACH.
--- NOTE | 2017-03-28 23:04 | NUR ---
EARLIER MEDICATION EFFECTIVE PER PATIENT. WILL CONTINUE TO MONITOR. CALL LIGHT LEFT IN REACH.
[2017-03-29] VITALS: BP 155/49
--- NOTE | 2017-03-29 03:26 | NUR ---
PATIENT ASLEEP IN CHAIR AT THIS TIME. RESPIRATIONS EASY. NO S/S OF DISTRESS NOTED. WILL CONTINUE TO MONITOR. CALL LIGHT IN REACH.
[2017-03-29 06:34] LABS: POTASSIUM 4.8 mmol/L (3.5-5.1)
[2017-03-29 06:38] LABS: CREATININE 2.86 mg/dL (0.55-1.02)
[2017-03-29 08:00] VITALS: BP 154/48
--- NOTE | 2017-03-29 09:39 | NUR ---
DR PIPER HAS ORD SNF. SW WILL DISCUSS WITH PT.
--- NOTE | 2017-03-29 09:43 | NUR ---
SW DISCUSSED DISCHARGE PLANS WITH PT. pT ADAMNATLY REFUSES SNF OR HOME HEALTH SERVICES. PT STATES THAT SHE WAS IN [facility] FOR 18MONTHS AND WILL NOT GO BACK. PT LIVES WITH HER BROTHER WHO ASSISTS HER. HER BROTHER DOES NOT WANT PEOPLE COMING IN THE HOME. PT STATED THAT [facility] HAD ANASSESSMENT AND THEY SAID SHE DID NOT QUALIFY FOR SERVICS DUE TO LIVING WITH HER BROTHER WHO IS RETIRED.
[2017-03-29 12:00] VITALS: BP 170/50
--- NOTE | 2017-03-29 12:23 | NUR ---
PHYSICAL THERAPY Physical Therapy Evaluation completed this date. See eval document for further details. Will begin PT intervention to address the impairments of difficulty ambulating and decreased dynamic balance with gait during inpnt stay. Recommend d/c home as able. No home PT services needed[place] [address] based on chart review and PT eval. Sara Sinha, PT
--- NOTE | 2017-03-29 13:18 | NUR ---
PHYSICAL THERAPY Felisa was seen this PM 1:1 for her therapy gait pt was up in her bedside chair. Transfer sit/stand and up on standard walker MIN A X 1, standing balance CGA X 1, no LOB. Then start off gait with standard walker 30' X 1, MOD GUNCOTTON PACKER X 1, with cueing for gait safety. Then gait 60' X 1, with MOD GUNCOTTON PACKER X 1, cueing for safety. Will try wheeled walker tomorrow i think this will be safer then standard walker, Pt has IV pole this gait, and verbal cueing for gait safety. Pt is not safe up ambulating by herself at this time. Will see how wheeled walker will work for her tomorrow, Pt having right foot ulcer, [employer] LE[employer]ER.
--- NOTE | 2017-03-29 14:30 | NUR ---
SHERITA GOODEN [id number] Please refer to the physician's history and physical for past medical history, comorbid conditions, and allergies. Diagnosis: ARF,INFECTED ULCER OF SKIN Shivam Score: 15,AT RISK WOUND DESCRIPTIONS: Location of the wound: right great toe Thickness: Full Size: 0.5cm x 0.5cm x 0.2cm Tunneling: none Underminin o'clock to 12 o'clock 0.2cm depth Sinus Tract: none Presence of Exudate: Serous Amount: Light Color: Canseco Odor: None Periwound Skin Appearance: Normal Wound edges: callus Pain (associated with wound): patient denied at time of assessment How does patient state this happened? patient states she stepped on a nail 6 months ago. Patient has been following Dr. Alvarado and getting debridements. Patient states she cannot feel her feet. If wound is on legs/feet or hands, capillary refill time, pulses, color temp, sensation: Pulses present Surface the patient is resting on: Position Pro SKIN PREVENTION RECOMMENDATION: 1. Pressure redistribution support surface as appropriate 2. Elevate heels 3. Remove boots/TEDS every shift and reapply 4. Head of bed 30 degrees as tolerated 5. Assess nutrition and hydration 6. Manage moisture 7. Avoid the use of containment devices while in bed 8. Use absorptive products on surfaces limit layers of linens on bed 9. Turn and reposition every 1-2 hours in bed and every 1 hour in chair as tolerated 10. Weight shifts every 15 minutes while up in chair 11. Offloading with pillows or device to keep heels elevated off bed 12. Monitor skin at least every shift 13. Inspect under medical devices twice a day WOUND TREATMENT RECOMMENDATIONS: Dr. Alvarado orders per patient are gentamicin sulfate ointment 0.1% to wound and cover with bandaid.
[2017-03-29 16:00] VITALS: BP 175/57
--- NOTE | 2017-03-29 18:00 | NUR ---
A 62, admitted to 5E, under the services of Dr. FELIZ BARAHONA,ROSA Locke with a diagnosis of ACUTE RENAL FAILURE/DEHYDRATION. Chief complaint is NAUSEA. Patient arrived via wheel chair from ER. Monitor applied. Initial assessment completed. Vital signs taken and recorded. DR. FELIZ BARAHONA,ROSA Locke notified of admission to the unit. Orders received. See assessment for past medical history, medications and allergies. Patient and/or family oriented to unit. [facility] visitation policy reviewed. Clothing/patient valuable form completed. ABEL PANTOJA
[2017-03-29 20:00] VITALS: BP 186/61
[2017-03-29 21:30] VITALS: BP 158/72
--- NOTE | 2017-03-29 21:38 | NUR ---
PO NORCO ADMINISTERED PER PRN ORDER FOR PATIENT C/O LEFT LEG ARTHRITIS PAIN 11/09. WILL MONITOR EFFECTIVENESS. CALL LIGHT LEFT IN REACH.
--- NOTE | 2017-03-29 22:16 | NUR ---
PATIENT STATES EARLIER MEDICATION WAS EFEECTIVE. WILL CONTINUE TO MONITOR. CALL LIGHT LEFT IN REACH.
[2017-03-30] VITALS: BP 156/48
[2017-03-30 06:43] LABS: CREATININE 2.5 mg/dL (0.55-1.02); POTASSIUM 4.9 mmol/L (3.5-5.1)
--- NOTE | 2017-03-30 08:00 | NUR ---
VS STABLE ALERT & ORIENTATEDX3, HEART SOUNDS NORMAL, LUNGS DIMISHED THROUGHOUT, ELIZABETH, SKIN TURGOR GOOD, CAPILLARY REFILL<3 SECONDS, SKIN PINK WARM & DRY, SPO2 97% ON ROOM AIR, RESPIRATION 16 NON-LABORED, IV SITE ASYSTMAITC, BOWEL SOUNDSX4 ABDOMEN NON-DISTENED, DRESSING ON RIGHT GRATE TOE DRY INTACT, 2 PLUS NON-PITTING EDEMA IN LOWER LEGS, PROTECTIVE DRESSING ON LEFT BOTTOM OF FOOT INTACT, NO COMPLAINTS OF PAIN AT THIS TIME. [facility]
[2017-03-30 08:19] VITALS: BP 158/62
--- NOTE | 2017-03-30 10:43 | NUR ---
SPOKE TO DR PIPER REGARDING GLUCOSE MONITORING AND ORDER RECIEVED TO CLARIFY PREVIOUS ORDER,ORDER RECIEVED. NOTIFIED DR PIPER ALSO OF MED REC AND PT REFUSING NITRO PATCH. PT STATED "SHE DOES NOT TAKE THIS MED ANYMORE",
--- NOTE | 2017-03-30 11:08 | NUR ---
PHYSICAL THERAPY Felisa seen this AM 1:1 for her therapy session and improving. All transfers were CGA X 1, no LOB. Gait today with wheeled walker 125' X 1, no LOB and little verbal cueing for gait safety. Pt up in her bedside chair call light and phone having no complaint. 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
--- NOTE | 2017-03-30 11:13 | NUR ---
DRESSING CHANGE TO COCCYX COMPLETED PER PHYSICIAN ORDERS. WET TO DRY APPLIED, RIGHT POSTERIOR CALF/BACK OF KNEE CLEANSED PER ORDER, THERAHONEY APPLIED. DRY DRESSING WITH CURLEX WRAP APPLIED. HYDROGUARD APPLIED. PT TOLERATED WELL. VOICES NO OTHER NEEDS. CALL LIGHT IN [facility].
[2017-03-30 12:00] VITALS: BP 146/72
--- NOTE | 2017-03-30 14:58 | NUR ---
ESTRADA SPOKE WITH PT AGAIN ABOUT DISCHARGE PLANS. PT WILL ACCEPT HOME HEALTH NURSE FOR A SHORT PERIOD OF TIME. [facility].
--- NOTE | 2017-03-30 15:47 | NUR ---
Patient resting quietly with no c/o discomfort. Respirations easy and regular. Vital signs stable. No overt distress. ROBYN DICKERSON
[2017-03-30 16:00] VITALS: BP 169/56
--- NOTE | 2017-03-30 17:21 | NUR ---
Patient resting quietly with no c/o discomfort. Respirations easy and regular. Vital signs stable. No overt distress. ROBYN DICKERSON
[2017-03-30 20:00] VITALS: BP 170/62
[2017-03-31] VITALS: BP 153/48
--- NOTE | 2017-03-31 03:49 | NUR ---
PATIENT ASLEEP IN CHAIR AT THIS TIME. RESPIRATIONS EASY. NO S/S OF DISTRESS NOTED. ON ROOM AIR. WILL MONITOR. CALL LIGHT LEFT IN REACH.
--- NOTE | 2017-03-31 05:46 | NUR ---
PATIENT STATES SHE CANNOT TAKE BOTH HER REGULAR INSULIN AND 70/30 AT THE SAME TIME. STATES SHE LIKED HOW IT WAS BEFORE: 70/30 AT 0500 & 1600 AND REGULAR QID (BEGINNING AT 1000). STATES THAT IS HOW SHE DOES IT AT HOME AND WOULD LIKE IT TO BE CHANGED BACK. MEDICATION REPROFILED PER PATIENT REQUEST. SCHEDULED 70/30 GIVEN FOR A BSG OF 231
[2017-03-31 08:00] VITALS: BP 157/72
--- NOTE | 2017-03-31 08:00 | NUR ---
VS STABLE ALERT ORIENTATEDX3, HEART SOUNDS NORMAL, LUNGS DIMISHED THROUGHOUT, ELIZABETH, SKIN TURGOR GOOD, SKIN PINK WARM DRY & INTACT, ABDOMEN SOFT NON-DISTNEDED BOWEL SOUNDSX4, 2 PLUS NON-PITTING EDEMA LOWER EXTREMITIES, PEDIAL PULSES+, DRESSING ON RIGHT GRATE TOE IS DRY INTACT, NO COMPLAINTS AT THIS TIME WILL CONTINUE TO MONITOR [facility]
--- NOTE | 2017-03-31 08:00 | NUR ---
ASSUMED CARE OF PATIENT, PATIENT IS SITTING UP IN CHAIR EATING HER BREAKFAST. SHE IS ALERT AND ORIENTED, PLEASANT DEMEANOR.
--- NOTE | 2017-03-31 09:30 | NUR ---
DR PIPER ON FLOOR REPORTED TO HIM PATIENT REFUSED NOVLIN FOR BGM OF 166 ALSON REFUSED NITROGLYCERIN 0.2 MG PATCH. [facility]
--- NOTE | 2017-03-31 09:45 | NUR ---
DOCOTOR IN TO SEE PATIENT SEE NEW ORDERS. [facility]
[2017-03-31 12:00] VITALS: BP 180/62
[2017-03-31 13:33] VITALS: BP 162/62
[2017-03-31 16:00] VITALS: BP 118/56; BP 157/58
[2017-03-31 20:00] VITALS: BP 154/51
--- NOTE | 2017-03-31 22:39 | NUR ---
BGM 76 AT 2200. PT DENIES SYMPTOMS. ORANGE JUICE AND PEANUT BUTTER AND CRACKERS WERE GIVEN.
--- NOTE | 2017-03-31 23:41 | NUR ---
PRN PAIN MEDICATION ADMINISTERED PER PATIENTS REQUEST FOR L KNEE PAIN RATED 7/10. WILL EVALUATE FOR EFFECTIVENESS.
[2017-04-01] VITALS: BP 171/51
--- NOTE | 2017-04-01 00:45 | NUR ---
PRN PAIN MEDICATION EFFECTIVE. SLEEPING. EASY, REGULAR BREATHS, NO DISTRESS NOTED.
[2017-04-01 04:00] VITALS: BP 142/64; BP 142/78
[2017-04-01 06:58] LABS: CREATININE 1.73 mg/dL (0.55-1.02); POTASSIUM 4.6 mmol/L (3.5-5.1)
[2017-04-01 08:00] VITALS: BP 158/68
--- NOTE | 2017-04-01 08:00 | NUR ---
VS STABLE, ANOX3 ELIZABETH, LUNGS SOUNDS CRACKLES IN BASES, HEART SOUNDS NORMAL, SKIN TURGOR GOOD, SKIN PINK WARM & DRY INTACT, CAPILLARY REFILLS<3 SECONCDS BOWEL SOUNDSX4 ABDOMEN SOFT NON-DISTENED, EDEMA NOTED IN FINGERS, 2+ EDEMA IN LEGS, DRESSING ON RIGHT GRATE DRY INTACT, NO COMPLAINTS AT THIS TIME WILL CONTINUE TO MONITOR. [facility]
--- NOTE | 2017-04-01 08:41 | NUR ---
ASSUMED CARE OF PATIENT. PATIENT IS SITTING UP IN CHAIR. PATIENT IS IN GOOD SPIRITS AND COOPERATIVE. DECREASED PATIENT'S FLUIDS TO 60ML PER HOUR PER DR PIPER D/T PATIENT HAVING SLIGHT PUFFY LOOK AND CRACKLES IN BASES. WILL REASSESS IN ONE HOUR. STUDENT IS HERE WORKING WITH PATIENT TODAY WELL.
--- NOTE | 2017-04-01 09:34 | NUR ---
PATIENT REFUSED NITROGLYCERIN 0.2MG PATCH. [facility]
--- NOTE | 2017-04-01 10:15 | NUR ---
PHYSICAL THERAPY Patient presented to therapy with report of feeling good and wanting to go home. Patient performed sit to stand with Supervision. Patient performed gait with W/W and IV pole attached with Supervision for 200' x 1. Patient was left in seated position with call light within reach. Patient was 1:1 with this HALF BACKER for 15 minutes total. CAMRON AYALA PTA
[2017-04-01 12:00] VITALS: BP 152/74
--- NOTE | 2017-04-01 14:49 | NUR ---
PHYSICAL THERAPY Patient presented ot therapy for 2 nd time today in seated position in bedside chair. Patient performed sit to stand transfer with Supervision. Patient performed gait with W/W and CGA X 1 for 200' x 1. Patient tolerated gait very well with no LOB, SOB, or other difficulty. Patient was 1:1 with this LICENSED OPTICIAN for 15 minutes. CAMRON AYALA LICENSED OPTICIAN
--- NOTE | 2017-04-01 15:45 | NUR ---
PT WILL RECEIVE [facility] WHEN DISCHARGED WHEN MEDICALLY STABLE.
[2017-04-01 16:00] VITALS: BP 181/53
--- NOTE | 2017-04-01 20:03 | NUR ---
PATIENT DISCHARGED AT THIS TIME. 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 LEFT FACILITY AT THIS TIME.
--- NOTE | 2017-04-02 08:34 | NUR ---
PHYSICAL THERAPY CO-SIGN I approve of the Phyical Therapy notes written above. KATIE GUAN PT
--- NOTE | 2017-04-02 08:52 | NUR ---
ESTRADA FAXED REFERRAL FOR HOME HEALTH SERVICES TO [facility]. ESTRADA [facility] WAS BEING FA[facility]ED.
--- NOTE | 2017-04-02 11:09 | NUR ---
SW RECEIVED CALL FROM [facility] THAT REFERRAL WAS NOT ACCEPTED AT THIS TIME.
== END 2017-04-01 20:03 | disposition home or self-care (01) | DRG 689 ==
LOC: ED 20:22 → EDHOLD 22:02 → 5E 22:02
PROVIDERS: Student in an Organized Health Care Education/Training Program; ADMIT Internal Medicine
DX: N39.0 Urinary tract infection, site not specified (principal); N17.0 Acute kidney failure with tubular necrosis; E11.22 Type 2 diabetes mellitus with diabetic chronic kidney disease; E11.42 Type 2 diabetes mellitus with diabetic polyneuropathy; K31.84 Gastroparesis; J44.0 Chronic obstructive pulmonary disease with (acute) lower respiratory infection; I13.0 Hypertensive heart and chronic kidney disease with heart failure and stage 1 through stage 4 chronic kidney disease, or unspecified chronic kidney disease; F33.0 Major depressive disorder, recurrent, mild; N18.4 Chronic kidney disease, stage 4 (severe); E11.65 Type 2 diabetes mellitus with hyperglycemia; E11.622 Type 2 diabetes mellitus with other skin ulcer; L08.9 Local infection of the skin and subcutaneous tissue, unspecified; L98.499 Non-pressure chronic ulcer of skin of other sites with unspecified severity; E78.2 Mixed hyperlipidemia; G89.29 Other chronic pain; R32 Unspecified urinary incontinence; E11.43 Type 2 diabetes mellitus with diabetic autonomic (poly)neuropathy; B96.89 Other specified bacterial agents as the cause of diseases classified elsewhere; E11.610 Type 2 diabetes mellitus with diabetic neuropathic arthropathy; R62.7 Adult failure to thrive; E66.09 Other obesity due to excess calories; I50.9 Heart failure, unspecified; Z91.11 Patient's noncompliance with dietary regimen; Z88.8 Allergy status to other drugs, medicaments and biological substances; Z88.2 Allergy status to sulfonamides; Z91.041 Radiographic dye allergy status; Z79.899 Other long term (current) drug therapy; Z79.4 Long term (current) use of insulin; Z90.710 Acquired absence of both cervix and uterus; Z90.49 Acquired absence of other specified parts of digestive tract; Z87.891 Personal history of nicotine dependence; Z82.0 Family history of epilepsy and other diseases of the nervous system; Z80.1 Family history of malignant neoplasm of trachea, bronchus and lung; Z68.33 Body mass index [BMI] 33.0-33.9, adult

== ENCOUNTER 2017-04-10 07:34 | Inpatient (IN) | payer MEDICAID ==
[~2017-04-10] VITALS: Ht 152.4 cm; Wt 98.1 kg
--- NOTE | ~2017-04-10 | PR ---
[place], [place] PROGRESS NOTE NAME: SHERITA GOODEN UNIT #: [id number] ROOM: 412 DOCTOR: ROSA PIPER MD BIRTHDATE: [birth year] DOS: 04/13/2017 SUBJECTIVE: The patient continues to improve. OBJECTIVE: VITAL SIGNS: Blood pressure 161/62, heart rate 64 beats per minute, breathing 18 times per minute, temperature 98 degrees Fahrenheit. GENERAL APPEARANCE: The patient is alert and oriented x 3, in no visible distress, except for generalized weakness and moderate obesity. HEENT AND NECK: Exam within normal limits. CARDIOVASCULAR SYSTEM: Heart rate is regular in rate and rhythm. S1 and S2 normally audible. LUNGS: Clear to auscultation. ABDOMEN: Soft, nontender. No obvious organomegaly. Bowel sounds are present. EXTREMITIES: Without significant cyanosis or edema. IMPRESSION AND PLAN: 1. The patient with type 2 diabetes mellitus and uncontrolled blood sugars because she is a brittle diabetic as well as she is poorly compliant with her diet. At the hospital, blood sugars were ranging between 80 to 250 mostly and this was without the 25 units of 70/30 insulin that she takes at home twice a day. The patient's sugars are lower and she is not requiring insulin at the hospital that she takes at home because she is apparently noncompliant with her diabetic diet. 2. Acute over chronic kidney failure related to hyperglycemia and glucosuria that happens at home when her sugars are high, leading to acute kidney failure and recurrent admissions to the hospital. 3. Old age, adult failure to thrive, recommended longterm placement, but the patient is refusing to go and she would rather be discharged to home. 4. Adult failure to thrive and recurrent admissions to the hospital. 5. Benign essential hypertension with better controlled blood pressures now. 6. Major depression, recurrent, mild, followed and treated. 7. Urinary tract infection with only 25,000 colonies of resistant Escherichia coli, being treated appropriately with ceftriaxone. [place], [place] PROGRESS NOTE NAME: SHERITA GOODEN UNIT #: [id number] ROOM: 412 DOCTOR: ROSA PIPER MD BIRTHDATE: [birth year] ROSA PIPER MD CM:KRYSTIN [id number] ROSA PIPER MD 04/14/17 0354 interface
--- NOTE | ~2017-04-10 | DS ---
[place], [place] DISCHARGE SUMMARY NAME: SHERITA GOODEN [facility] #: [id number] UNIT #: [id number] ROOM: 412 DOCTOR: ROSA PIPER MD BIRTHDATE: [birth year] DOS: 04/14/2017 DISCHARGE DIAGNOSES: 1. Acute over chronic kidney failure, improved with treatment. 2. Type 2 diabetes mellitus, uncontrolled with poor compliance with diet. 3. Adult failure to thrive and recurrent admissions to the hospital. 4. Benign essential hypertension. 5. Major depression, recurrent. 6. Urinary tract infection with resistant Escherichia coli, treated with IV ceftriaxone. 7. Chronic kidney disease stage 3 and diabetic nephropathy. 8. Mixed hyperlipidemia. 9. Peripheral polyneuropathy with chronic pains and diabetic neuropathy. 10. Charcot joints. 11. Chronic urinary incontinence. 12. Diabetic gastroparesis. HOSPITAL COURSE: The patient presented to [facility] feeling unwell. The patient was found to have urinary tract infection and severe hyperglycemia. The patient was also feeling very weak and was in acute kidney failure again. The patient has recurrent admissions for acute kidney failure. Apparently, when she goes home, she is poorly compliant with her diet and develops hyperglycemia, reaching into 400s and sometimes into 500s, which leads to glucosuria and dehydration with acute kidney failure and readmission to the hospital. After admission, the patient was hydrated with normal saline and her sugar control improved when she was put on a no concentrated sweet diet. The patient's blood sugar is now ranging between 100-250 range, which is much better than her sugar control at home. Her sugars are better controlled despite of the fact that I took her off the 25 units of 70/30 insulin that she was taking at home twice a day. I suspect when patient goes home, she will start eating what she normally eats at home and become hyperglycemic and volume contracted followed by acute kidney failure again. I explained this to the patient in good detail and she understands that she has to stay away from sugars and refined carbohydrates0 Urinary tract infection resistant E. coli, treated with ceftriaxone. She only grew 25,000 colonies of E. coli sensitive to ceftriaxone. Uncontrolled type 2 diabetes mellitus with better controlled sugars now as mentioned above. The patient apparently poorly compliant with diet at home. The patient was educated on diet. Major depression, recurrent, mild, treated and controlled. Mixed hyperlipidemia was treated and followed. Benign essential hypertension with elevated blood pressures at admission have normalized with treatment. Systolic blood pressure is ranging between 111-160 and diastolic blood pressure is ranging between 40-62, reasonably controlled. [place], [place] DISCHARGE SUMMARY NAME: SHERITA GOODEN [facility] #: [id number] UNIT #: [id number] ROOM: [facility] DOCTOR: ROSA PIPER MD BIRTHDATE: [birth year] LABORATORY DATA: BUN and creatinine 49 and 2.3 after testing analyst restarted the patient on Bumex. I am reducing the patient's Bumex dose. ____ blood cultures were negative. Urine cultures grew E. coli as mentioned above. Chest x-ray showed no acute abnormality. DISCHARGE MANAGEMENT: Lisinopril 10 mg a day, Bumex 1 mg daily, labetalol 300 mg b.i.d., amlodipine 5 mg daily, regular insulin sliding scale, Vicodin p.r.n. ROSA PIPER MD CM:DISCHINNA [id number] ROSA PIPER MD 04/14/17 1216 interface
--- NOTE | ~2017-04-10 | WRIGHTHP ---
[place], [place] PATIENT HISTORY AND PHYSICAL EXAM NAME: SHERITA GOODEN [facility] #: [id number] UNIT #: [id number] ROOM: 412 DOCTOR: ROSA PIPER MD BIRTHDATE: [birth year] DOS: 04/10/2017 HISTORY OF PRESENT ILLNESS: The patient is a 62-year-old female with a past medical history of: 1. Chronic kidney disease stage 3. 2. Uncontrolled type 2 diabetes mellitus. 3. Adult failure to thrive. 4. Mixed hyperlipidemia. 5. Major depression, recurrent, mild. 6. Benign essential hypertension. 7. Peripheral polyneuropathy with chronic pains and diabetic neuropathy. 8. Charcot joints. 9. Chronic urinary incontinence. 10. Diabetic gastroparesis. The patient presented to the Emergency Department at [facility] with feeling unwell and she was found to have urinary tract infection and severe hyperglycemia. After initial treatment in the emergency department with IV insulin. she was recommended for admission and further management. After admission, the patient is starting to feel better and her sugars are being monitored and improving. No chest pain. No increasing shortness of breath. No GI or urinary symptoms. REVIEW OF SYSTEMS: LUNGS: No increasing shortness of breath or wheezing. GASTROINTESTINAL: No nausea, vomiting, diarrhea or constipation. CARDIOVASCULAR: No chest pains or palpitations. FAMILY HISTORY: Noncontributory. SOCIAL HISTORY: Lives at home. Denies smoking cigarettes, alcohol and drug abuse. HOME MEDICATIONS: Labetalol, amlodipine and other p.r.n. medications. ALLERGIES: Known allergies to IODINE, SULFA, and ASPARTAME. PHYSICAL EXAMINATION: GENERAL: Alert, oriented x 3,. generalized weakness. HEENT AND NECK: Extraocular movements are intact. Sclerae are anicteric. Oral mucosa is moist and clean. No obvious facial weakness. Neck is supple without any lymphadenopathy. No thyromegaly. No JVD. No carotid arterial bruits. LUNGS: Clear to auscultation. No wheezing. No rhonchi. CARDIOVASCULAR SYSTEM: Heart rate is regular in rate and rhythm. S1 and S2 normally audible. No significant murmur or any other abnormal cardiac sounds. ABDOMEN: Soft, nontender. No obvious organomegaly. Bowel sounds are present. [place], [place] PATIENT HISTORY AND PHYSICAL EXAM [id number] UNIT #: [id number] ROOM: 412 DOCTOR: ROSA PIPER MD BIRTHDATE: [birth year] No obvious herniation. EXTREMITIES: Without significant cyanosis or edema. Warm to touch. CENTRAL NERVOUS SYSTEM: Alert and oriented x 3. Cranial nerves II-XII are intact. Speech is normal. The patient is able to move all extremities. Normal muscle strength. Deep tendon reflexes are equal on both sides. Plantars were downgoing. CARDIOVASCULAR SYSTEM: ABDOMEN:. LABORATORY DATA: Chest x-ray showing no acute process. BUN and creatinine of 64 and 3.5. Hemoglobin 9.4. Urine cultures were negative. IMPRESSION: 1. The patient with acute over chronic kidney failure, acute tubular necrosis and elevated blood pressures, to be treated with hydration and I will get a Nephrology consult. 2. Urinary tract infection. We will wait for urine cultures and also treat her with antibiotics, monitor her white cell count and treat her according to culture results. 3. Type 2 diabetes mellitus, uncontrolled with severe hyperglycemia, is being treated with sliding scale of regular insulin and on no concentrated sweet diet and her blood sugars have improved. 4. Major depression, recurrent, mild, will be treated accordingly. 5. Mixed hyperlipidemia, to be followed and treated. 6. Benign essential hypertension with elevated blood pressures. I will adjust treatment. ROSA PIPER MD CM:HISPHYS:PATIENT HISTORY AND PHYSICAL EXAMINATION [phone] ROSA PIPER MD 04/10/172042 interface
--- NOTE | ~2017-04-10 | PR ---
[place], [place] PROGRESS NOTE [id number] UN[facility] #: [id number] ROOM: 412 DOCTOR: ROSA PIPER MD BIRTHDATE: [birth year] DOS: 04/11/2017 SUBJECTIVE: The patient continues to feel better and blood sugars are normalizing. OBJECTIVE: VITAL SIGNS: Blood pressure 111/45, heart rate 62 beats per minute, breathing 18 times per minute, temperature 98 degrees Fahrenheit. GENERAL APPEARANCE: The patient is alert and oriented x 3, in no visible distress. HEENT AND NECK: Exam within normal limits. CARDIOVASCULAR SYSTEM: Heart rate is regular in rate and rhythm. S1 and S2 normally audible. LUNGS: Clear to auscultation. ABDOMEN: Soft, nontender. No obvious organomegaly. Bowel sounds are present. EXTREMITIES: Without significant cyanosis or edema. IMPRESSION AND PLAN: 1. The patient with chronic kidney disease stage 4 with acute over chronic kidney failure, improving with treatment. 2. Uncontrolled type 2 diabetes mellitus with improving blood sugars with treatment. I will check her HbA1c. 2. Adult failure to thrive with recurrent admissions to the hospital. 3. Benign essential hypertension. The patient's blood pressures are normalizing with treatment. 4. Major depression, recurrent, mild, followed and treated. 5. Urinary tract infection, being treated. Urine culture is still pending. ROSA PIPER MD CM:PNTRANS [id number] ROSA PIPER MD 04/12/17 0338 interface
--- NOTE | ~2017-04-10 | PR ---
[place], [place] PROGRESS NOTE [facility] GOOD[id number] UN[facility] #: [id number] ROOM: 412 DOCTOR: ROSA PIPER MD BIRTHDATE: [birth year] DOS: 04/12/2017 SUBJECTIVE: The patient continues to feel better. OBJECTIVE: VITAL SIGNS: Blood pressure 152/57, heart rate is 66 beats per minute, breathing 18 times per minute, temperature 98 degrees Fahrenheit. GENERAL APPEARANCE: The patient is alert and oriented x 3, in no visible distress, except for generalized weakness. HEENT AND NECK: Exam within normal limits. CARDIOVASCULAR SYSTEM: Heart rate is regular in rate and rhythm. S1 and S2 normally audible. LUNGS: Clear to auscultation. ABDOMEN: Soft, nontender. No obvious organomegaly. Bowel sounds are present. EXTREMITIES: Without significant cyanosis or edema. IMPRESSION: 1. The patient with uncontrolled type 2 diabetes mellitus with severe hyperglycemia has improved and now her blood sugars are ranging between 97, occasionally going up to 300, much better controlled. 2. Acute over chronic kidney disease, kidney failure, improving with hydration with normal saline. 3. Urinary tract infection, resistant; Escherichia coli, sensitive to Zosyn, which will be started now. 4. Mixed hyperlipidemia, diet controlled. 5. Benign essential hypertension, with improving blood pressures with treatment. 6. Major depression, recurrent, mild, reasonably controlled. 7. The patient already on ceftriaxone, which covers for Escherichia coli. The patient only grew 25,000 colonies, which does not look like very serious infection. ROSA PIPER MD CM:PNTRANS [phone] ROSA PIPER MD 04/12/172235 interface
[2017-04-10 07:40] VITALS: BP 149/51
[2017-04-10 07:59] VITALS: BP 142/50
[2017-04-10 08:11] LABS: BILIRUBIN NEGATIVE (NEGATIVE); BLOOD NEGATIVE (NEGATIVE); CLARITY SL CLOUDY (CLEAR); COLOR YELLOW (YELLOW); GLUCOSE 3+ (NEGATIVE); KETONE TRACE (NEGATIVE); LEUKO ESTERASE TRACE (NEGATIVE); NITRITE NEGATIVE (NEGATIVE); UROBILINOGEN 0.2 E.U./dl (0.2-1.0)
[2017-04-10 08:18] LABS: BASO # 0.1 10*3/uL (0.0-0.1); BASO % 0.9 % (0.0-1.0); EOS # 0.5 10*3/uL (0.0-0.4); EOS % 6.3 % (1.0-4.0); HEMATOCRIT 29.1 % (37.0-47.0); HEMOGLOBIN 9.4 g/dl (12.0-16.0); LYMPH # 1.5 10*3/uL (1.3-4.4); MEAN CORPUSCULAR HGB 28.7 pg (27.0-31.0); MEAN CORPUSCULAR HGB CONC 32.3 g/dl (33.0-37.0); MEAN PLATELET VOLUME 10.1 fl (9.6-12.3); MONO # 0.9 10*3/uL (0.1-1.0); MONO % 11.2 % (3.0-9.0); NEUT # 5.1 10*3/uL (2.3-7.9); PLATELET COUNT AUTOMATED 311 10*3/uL (130-400); RED BLOOD COUNT 3.27 10*6/uL (4.10-5.10); RED CELL DISTRI WIDTH 13.2 % (0-14.5); WHITE BLOOD COUNT 8.1 10*3/uL (4.8-10.8)
[2017-04-10 08:21] LABS: BACTERIA 1+
[2017-04-10 08:32] LABS: ACT PARTIAL THROMBO TIME 25.2 SECONDS (20.8-31.5)
[2017-04-10 08:36] LABS: ALBUMIN 3.6 gm/dl (3.1-4.5); ALKALINE PHOSPHATASE 136 U/L (45-117); BUN 64 mg/dl (7-24); CHLORIDE 97 mmol/L (98-107); CREATININE 3.51 mg/dL (0.55-1.02); LIPASE 45 U/L (73-393); POTASSIUM 4.3 mmol/L (3.5-5.1); SGOT/AST 23 IU/L (3-35); SGPT/ALT 31 U/L (12-78); SODIUM 134 mmol/L (136-145); TOTAL PROTEIN 7.5 gm/dL (6.4-8.2); TROPONIN I < 0.015 ng/ml (<0.045)
[2017-04-10 10:17] VITALS: BP 154/44
[2017-04-10 10:45] VITALS: BP 180/50
[2017-04-10] MEDS ORDERED: PLAVIX75 M1 PO (11:36)
[2017-04-10] MEDS ORDERED: NORVASC5 MG PO (11:37)
[2017-04-10 12:00] VITALS: BP 151/49
[2017-04-10 16:00] VITALS: BP 167/54
[2017-04-11] VITALS: BP 153/51
[2017-04-11 06:35] LABS: CREATININE 2.49 mg/dL (0.55-1.02)
[2017-04-11 08:00] VITALS: BP 173/50
[2017-04-11 12:00] VITALS: BP 179/50
[2017-04-11 16:00] VITALS: BP 111/45
[2017-04-11 20:00] VITALS: BP 156/51
[2017-04-12 06:28] LABS: CREATININE 1.98 mg/dL (0.55-1.02); POTASSIUM 4.3 mmol/L (3.5-5.1)
[2017-04-12 08:00] VITALS: BP 158/49
[2017-04-12 16:00] VITALS: BP 152/57
[2017-04-13] VITALS: BP 165/46
[2017-04-13 06:50] LABS: CREATININE 1.98 mg/dL (0.55-1.02); PHOSPHOROUS 3.5 mg/dL (2.5-4.9); POTASSIUM 4.1 mmol/L (3.5-5.1)
[2017-04-13 07:50] VITALS: BP 160/52
[2017-04-13 16:00] VITALS: BP 161/62
[2017-04-13 20:00] VITALS: BP 164/47
[2017-04-14] VITALS: BP 131/41
[2017-04-14 06:27] LABS: ALBUMIN 3.5 gm/dl (3.1-4.5); CREATININE 2.3 mg/dL (0.55-1.02); PHOSPHOROUS 4.2 mg/dL (2.5-4.9); POTASSIUM 4.3 mmol/L (3.5-5.1)
[2017-04-14 08:00] VITALS: BP 152/50
[2017-04-14] MEDS ORDERED: BUMETANIDE1 MG PO (10:21)
== END 2017-04-14 11:20 | disposition home or self-care (01) | DRG 637 ==
LOC: ED 07:34 → 4E 09:47 → EDHOLD 09:47 → 4E 09:51
PROVIDERS: Emergency Medicine; Internal Medicine; ADMIT Internal Medicine
DX: E11.65 Type 2 diabetes mellitus with hyperglycemia (principal); N17.0 Acute kidney failure with tubular necrosis; E66.01 Morbid (severe) obesity due to excess calories; K31.84 Gastroparesis; I13.0 Hypertensive heart and chronic kidney disease with heart failure and stage 1 through stage 4 chronic kidney disease, or unspecified chronic kidney disease; I50.32 Chronic diastolic (congestive) heart failure; F33.0 Major depressive disorder, recurrent, mild; N39.0 Urinary tract infection, site not specified; N18.4 Chronic kidney disease, stage 4 (severe); Z68.41 Body mass index [BMI] 40.0-44.9, adult; E11.21 Type 2 diabetes mellitus with diabetic nephropathy; E11.42 Type 2 diabetes mellitus with diabetic polyneuropathy; R62.7 Adult failure to thrive; B96.20 Unspecified Escherichia coli [E. coli] as the cause of diseases classified elsewhere; E78.2 Mixed hyperlipidemia; G89.29 Other chronic pain; E11.610 Type 2 diabetes mellitus with diabetic neuropathic arthropathy; R32 Unspecified urinary incontinence; D63.8 Anemia in other chronic diseases classified elsewhere; Z16.20 Resistance to unspecified antibiotic; R31.9 Hematuria, unspecified; E86.0 Dehydration; J44.9 Chronic obstructive pulmonary disease, unspecified; E11.22 Type 2 diabetes mellitus with diabetic chronic kidney disease; R81 Glycosuria; E11.43 Type 2 diabetes mellitus with diabetic autonomic (poly)neuropathy; Z88.2 Allergy status to sulfonamides; Z88.8 Allergy status to other drugs, medicaments and biological substances; Z91.041 Radiographic dye allergy status; Z79.899 Other long term (current) drug therapy; Z79.4 Long term (current) use of insulin; Z90.49 Acquired absence of other specified parts of digestive tract; Z90.89 Acquired absence of other organs; Z90.710 Acquired absence of both cervix and uterus; Z98.51 Tubal ligation status; Z87.891 Personal history of nicotine dependence; Z82.49 Family history of ischemic heart disease and other diseases of the circulatory system; Z81.8 Family history of other mental and behavioral disorders; Z80.1 Family history of malignant neoplasm of trachea, bronchus and lung; Z83.6 Family history of other diseases of the respiratory system; Z91.11 Patient's noncompliance with dietary regimen; Z71.3 Dietary counseling and surveillance

== ENCOUNTER 2017-04-17 18:09 | Emergency (ER) | payer MEDICAID ==
[~2017-04-17] VITALS: Ht 157.4 cm; Wt 98.4 kg
[~2017-04-17 18:09] MED LIST changes: +NORVASC5 MG PO; +PLAVIX75 M1 PO
[2017-04-17 20:52] LABS: BASO # 0.1 10*3/uL (0.0-0.1); BASO % 0.9 % (0.0-1.0); EOS # 0.5 10*3/uL (0.0-0.4); EOS % 6.5 % (1.0-4.0); HEMATOCRIT 31.2 % (37.0-47.0); HEMOGLOBIN 10.1 g/dl (12.0-16.0); LYMPH # 1.8 10*3/uL (1.3-4.4); LYMPH % 23.7 % (27.0-41.0); MEAN CELL VOLUME 88.1 fl (81.0-99.0); MEAN CORPUSCULAR HGB 28.5 pg (27.0-31.0); MEAN CORPUSCULAR HGB CONC 32.4 g/dl (33.0-37.0); MEAN PLATELET VOLUME 10.9 fl (9.6-12.3); MONO # 0.8 10*3/uL (0.1-1.0); MONO % 10.7 % (3.0-9.0); NEUT # 4.4 10*3/uL (2.3-7.9); NEUT % 57.7 % (47.0-73.0); PLATELET COUNT AUTOMATED 314 10*3/uL (130-400); RED BLOOD COUNT 3.54 10*6/uL (4.10-5.10); RED CELL DISTRI WIDTH 13.2 % (0-14.5); WHITE BLOOD COUNT 7.7 10*3/uL (4.8-10.8)
[2017-04-17 21:08] LABS: BILIRUBIN NEGATIVE (NEGATIVE); BLOOD NEGATIVE (NEGATIVE); CLARITY CLEAR (CLEAR); COLOR YELLOW (YELLOW); GLUCOSE 1+ (NEGATIVE); KETONE NEGATIVE (NEGATIVE); LEUKO ESTERASE NEGATIVE (NEGATIVE); NITRITE NEGATIVE (NEGATIVE); SPECIFIC GRAVITY <= 1.005 (1.005-1.030); UROBILINOGEN 0.2 E.U./dl (0.2-1.0)
[2017-04-17 21:09] LABS: CREATININE 3.47 mg/dL (0.55-1.02)
[2017-04-17 21:14] LABS: HYALINE CAST 0-2
[2017-04-18 05:37] LABS: CREATININE 3.01 mg/dL (0.55-1.02); POTASSIUM 4.7 mmol/L (3.5-5.1)
[2017-04-18 06:16] VITALS: BP 166/67
== END 2017-04-18 07:57 | disposition home or self-care (01) ==
LOC: ED 18:09
PROVIDERS: Emergency Medicine Emergency Medical Services
DX: E86.0 Dehydration (principal); E66.01 Morbid (severe) obesity due to excess calories; I13.2 Hypertensive heart and chronic kidney disease with heart failure and with stage 5 chronic kidney disease, or end stage renal disease; E11.22 Type 2 diabetes mellitus with diabetic chronic kidney disease; N18.5 Chronic kidney disease, stage 5; I50.9 Heart failure, unspecified; Z91.14 Patient's other noncompliance with medication regimen; Z90.49 Acquired absence of other specified parts of digestive tract; Z90.710 Acquired absence of both cervix and uterus; Z87.891 Personal history of nicotine dependence; Z98.51 Tubal ligation status; Z79.899 Other long term (current) drug therapy; Z79.4 Long term (current) use of insulin; Z91.041 Radiographic dye allergy status; Z88.2 Allergy status to sulfonamides; Z88.8 Allergy status to other drugs, medicaments and biological substances

== ENCOUNTER 2017-04-20 10:43 | Inpatient (IN) | payer MEDICAID ==
[~2017-04-20] VITALS: Ht 157.5 cm; Wt 99.3 kg
--- NOTE | ~2017-04-20 | PR ---
[place], [place] PROGRESS NOTE NAME: [id number] UN[facility] #: [id number] ROOM: 402 DOCTOR: VALARIE BAPTISTE MD BIRTHDATE: [birth year] DOS: 04/22/2017 SUBJECTIVE: The patient is doing well without any complaints this morning. OBJECTIVE: VITAL SIGNS: Graphic trend shows a pressure of 156/44, pulse is 66, respirations 18, temperature 97.8. LUNGS: Diminished breath sounds, clear. HEART: Regular. ABDOMEN: Obese, soft, nontender. EXTREMITIES: Without any edema. ASSESSMENT AND PLAN: 1. Type 2 diabetes mellitus, insulin-dependent, better controlled here. Labs noted from yesterday. 2. Chronic renal insufficiency, stage 4, on diuretics and NELY inhibitors, dosages were cut back. 3. Adult failure to thrive. She is expected at [facility], so plan is to discharge her today. VALARIE BAPTISTE MD CM:PNTRANS [phone] VALARIE BAPTISTE MD 04/30/17 1035 interface
--- NOTE | ~2017-04-20 | DS ---
[place], [place] DISCHARGE SUMMARY NAME: SHERITA GOODEN UNIT #: [id number] ROOM: 402 DOCTOR: VALARIE BAPTISTE MD BIRTHDATE: [birth year] DOS: 04/22/2017 DIAGNOSES: 1. Adult failure to thrive. 2. Noncompliance with poor insight to medical problems. 3. Type 2 diabetes mellitus, insulin-dependent, poorly controlled. 4. Benign hypertension. 5. Chronic kidney disease stage 4. 6. Major depression, recurrent, mild. 7. Diabetic nephropathy. 8. Hyperlipidemia. 9. Peripheral neuropathy with chronic pain. 10. Charcot joint. 11. Gastroparesis. 12. Chronic urinary tract infections. 13. Generalized anxiety disorder. DISCHARGE MEDICATIONS: Will be lisinopril 5 daily, insulin 70/30 25 units twice a day, Bumex 0.5 mg daily, Ditropan XL 5 mg daily, omeprazole 20 daily, hydralazine 100 b.i.d., insulin sliding scale, lovastatin 40 daily, metoclopramide 5 t.i.d., labetalol 300 b.i.d., Requip 1 mg at bedtime, amitriptyline 25 at bedtime, Guadalupe q. 6 hours p.r.n., Plavix 75 daily, Norvasc 5 daily. HOSPITAL COURSE: The patient is very well known to us, who comes in with extremely high blood sugars and difficulty to control at home. Please refer to H and P for details. After admission, the patient was placed on a higher dose of insulin. Social Service was consulted. The patient lives with her brother who is unable to take care of her any longer and so request for placement has been made. The patient's blood sugars have been fairly well controlled here. The dosage of the Bumex and the dosage of the lisinopril dose were cut back. The patient is stable and improved and the plan is to discharge her to [facility] today who has accepted her. Blood sugars are to be checked 4 times a day for the next 1 week. ADA diet, 1800 calories to be given. Fluid restriction to about 2 liters. The patient to be followed by Dr. Lai at the facility. [place], [place] DISCHARGE SUMMARY NAME: SHERITA GOODEN UNIT #: [id number] ROOM: [facility] DOCTOR: VALARIE BAPTISTE MD BIRTHDATE: [birth year] VALARIE BAPTISTE MD CM:ISIDRO 3 4 VALARIE BAPTISTE MD 04/22/1736 interface
--- NOTE | ~2017-04-20 | WRIGHTHP ---
[place], [place] PATIENT HISTORY AND PHYSICAL EXAM NAME: SHERITA GOODEN [facility] #: [id number] UNIT #: [id number] ROOM: 402 DOCTOR: VAALRIE BAPTISTE MD BIRTHDATE: [birth year] DOS: 04/20/2017 HISTORY OF PRESENT ILLNESS: This patient is very well known to us, 62 years old. The patient has had multiple admissions in the last few months. She lives with her brother and the last couple of days, her blood sugars have been extremely high and they have had a hard time bringing it down. The patient has gotten weaker and is unable to get up out of the bed and she has not even been able to take a bath or get cleaned up as per her brother. So, he took her to the [facility], had blood work done, her blood sugars were high, they did not admit her. The patient's brother is unable to take care of her at home anymore. The patient does not have any complaints of chest pains or palpitations, not have any fever or chills, does not have any abdominal pain, nausea, and emesis. PAST MEDICAL HISTORY: Significant for: 1. Type 2 diabetes mellitus. 2. Adult failure to thrive. 3. Benign hypertension. 4. Major depression, recurrent. 5. Chronic kidney disease stage III. 6. Diabetic nephropathy. 7. Hyperlipidemia. 8. Peripheral neuropathy with chronic pains. 9. Charcot joint. 10. Gastroparesis. 11. Chronic UTIs. 12. Stage IV renal failure. MEDICATIONS: She is on amlodipine 5, amitriptyline 25, Bumex 1 mg, Plavix 75, hydralazine 100 b.i.d., labetalol 300 b.i.d., lisinopril 10 daily, lovastatin 10 daily, metoclopramide 5 t.i.d., omeprazole 420 daily, oxybutynin 5 daily, Requip 1 mg at bedtime, 70/30 insulin 25 in the morning and 15 in the evening. SOCIAL HISTORY: Nonsmoker, does not use any alcohol. Lives at home. Currently, she lives with her brother. PHYSICAL EXAMINATION: VITAL SIGNS: Graphic trend shows a pressure 146/50, pulse of 66, respirations 14, temperature 97.4. LUNGS: Clear. HEART: Regular. ABDOMEN: Obese, soft and nontender. EXTREMITIES: Without any edema. ASSESSMENT AND PLAN: 1. Adult failure to thrive. The patient would benefit from placement. Social service has been consulted. We are hoping she will be able to go to [facility] because the family is unable to take care of her and she is unable to live at home alone. 2. Type 2 diabetes mellitus, insulin-dependent. Blood sugars being checked and [place], [place] PATIENT HISTORY AND PHYSICAL EXAM NAME: SHERITA GOODEN UNIT #: [id number] ROOM: [facility] DOCTOR: VALARIE BAPTISTE MD BIRTHDATE: [birth year] coverage scale has been ordered. 3. Chronic kidney disease stage 4. We will decrease the dose of the lisinopril. Repeat labs have been ordered today. 4. Benign hypertension, controlled. 5. Chronic pain from diabetic peripheral neuropathy. Continue pain medication. VALARIE BAPTISTE MD CM:HISPHYS:PATIENT HISTORY AND PHYSICAL EXAMINATION [phone] VALARIE BAPTISTE MD 04/30/17 1033 interface
[2017-04-20 11:15] VITALS: BP 156/56
--- NOTE | 2017-04-20 11:15 | NUR ---
Time: 1114 A 62 year old FEMALE admitted to under services of VALARIE MAI MD. Pt. [place] from [place]. Chief complaint: UNCONTROLLED DIABETES,FAILURE TO THRIVE. CRISTIAN CASTILLO
[2017-04-20] MEDS ORDERED: HUMULIN 70/30 710 M1 SC ×2 (12:12→12:13)
--- NOTE | 2017-04-20 12:19 | NUR ---
DR. BAPTISTE CALLED. ORDERS TAKEN AND REVIEWED.
--- NOTE | 2017-04-20 14:00 | NUR ---
SITTING UP AT SIDE OF BED EATING LUNCH. RESP-EASY AND REGULAR. CALL LIGHT IN REACH.
--- NOTE | 2017-04-20 15:29 | NUR ---
PHYSICAL THERAPY EVALUATION COMPLETED. PATIENT SUPINE IN BED. INTERMITTENTLY TEARFUL THROUGHOUT THIS SESSION. PATIENT REPORTS LBP IS IMPROVING WITH MEDICATION: 0/10 AT REST, 4-5/10 WALKING. PAIN PRIMARILY AT LOW BACK/SACRUM. PAIN INCREASES WITH WALKING AND AT NIGHT. TRANSFERS: SUPERVISION IN/OUT OF BED WITH BEDRAIL GAIT: WITH WALKER X 40FT, SUPERVISION. ANTALGIC GAIT WITH INCREASING LBP. BE LE STRENGTH 4-/5, EXCEPT LEFT CHARCOT FOOT 3+/5 WITH MILD ROM LIMITATIONS. LEFT CALF "MUSCLE CRAMP" DURING MANUAL MUSCLE TESTING; RESOLVED IN 1 MIN. TUG X 26 SECONDS WITH WALKER. CONTINUE PT FOR GAIT, BALANCE, ENDURANCE, STRENGTHENING, IMPROVEMENT WITH SAFETY DURING FUNCTIONAL MOBILITY. PT EVAL: MODERATE COMPLEXITY D/T TIME WITH PATIENT AND CHART REVIEW. THANK YOU FOR THIS REFERRAL, YOLANDA GLASGOW, PT
[2017-04-20 16:00] VITALS: BP 146/49
--- NOTE | 2017-04-20 16:00 | NUR ---
PT RESTING IN BED. [id number]-[id number], SEE EMAR. NO C/O AT THIS TIME. CALL LIGHT IN REACH. SEE SHIFT ASSESSMENT.
--- NOTE | 2017-04-20 19:30 | NUR ---
PT PLEASANT AND COOPERATIVE DURING ASSESSMENT. PT SITTING UP IN CHAIR. SKIN WARM AND DRY TO TOUCH. DENIES ANY PAIN. BLOOD SUGAR 62. PT GIVEN ORANGE JUICE. WILL RECHECK BS IN ONE HOUR. CALL LIGHT IN REACH.
[2017-04-20 20:00] VITALS: BP 141/41
--- NOTE | 2017-04-20 22:15 | NUR ---
PT C/O LEFT LEG PAIN RATED AT 8/10 R/T ARTHTITIS. PT'S ONLY ORDERED MED IS INSULIN. SPOKE WITH DR YUSUF. ORDERED 1000 MG TYLENOL Q8 PRN FOR PAIN STARTING NOW.
--- NOTE | 2017-04-20 22:24 | NUR ---
PT GIVEN TYLENOL PER REQUEST FOR LEFT LEG PAIN. PT SITTING IN CHAIR AT THIS TIME WITH LEGS ELEVATED. CALL LIGHT WITHIN REACH.
--- NOTE | 2017-04-20 23:30 | NUR ---
PT SITTING UP IN CHAIR, RESPIRATIONS EASY ON RA. PT STATES TYLENOL TOOK PAIN DOWN TO 7/10 FROM 8/10. PT INQUIRED OF NIGHTIME MEDICATIONS. NURSE INFORMED THERE ARE NO ORDERS.
[2017-04-21] VITALS: BP 134/47
--- NOTE | 2017-04-21 07:13 | NUR ---
Patient here requesting placement at [facility], will contact Ana Valdovinos and fax referral.
[2017-04-21 07:41] VITALS: BP 146/50
--- NOTE | 2017-04-21 08:00 | NUR ---
ASSESSMENT COMPLETED, NO COMPLAINTS OF PAIN OR SOB. PATIENT SITTING IN CHAIR, AWAITING BROTHER'S VISIT. PATIENT AWAKE WATCHING TV. 12 UNITS OF INSULIN GIVEN FOR BLOOD GLUCOSE LEVEL OF 352. DOCTOR VISITED PATIENT. KARINA ASHLEYCC
[2017-04-21] MEDS ORDERED: BUMETANIDE0.5 MG PO (08:46)
[2017-04-21] MEDS ORDERED: HUMULIN 70/30 703 M1 SC (08:46)
[2017-04-21] MEDS ORDERED: LISINOPRIL5 MG PO (08:46)
--- NOTE | 2017-04-21 09:01 | NUR ---
Occupational Therapy evaluation completed this date on 4 with full eval to follow. Precautions include fall risk, new ww use, chronic low back pain, tearful, low complexity level 56350. Recommend inpatient OT per POC and LTC upon d/c to enable consistant medication, ADLs. Thank you for this referral. Melany Goodrich OTR/l
[2017-04-21 09:15] LABS: BASO # 0.1 10*3/uL (0.0-0.1); BASO % 0.9 % (0.0-1.0); EOS # 0.6 10*3/uL (0.0-0.4); EOS % 8.8 % (1.0-4.0); LYMPH # 1.5 10*3/uL (1.3-4.4); LYMPH % 22.4 % (27.0-41.0); MEAN CELL VOLUME 89.6 fl (81.0-99.0); MEAN CORPUSCULAR HGB 28.9 pg (27.0-31.0); MEAN CORPUSCULAR HGB CONC 32.3 g/dl (33.0-37.0); MEAN PLATELET VOLUME 10.5 fl (9.6-12.3); MONO # 0.7 10*3/uL (0.1-1.0); NEUT # 3.7 10*3/uL (2.3-7.9); NEUT % 57.4 % (47.0-73.0); PLATELET COUNT AUTOMATED 304 10*3/uL (130-400); RED BLOOD COUNT 3.46 10*6/uL (4.10-5.10); RED CELL DISTRI WIDTH 13.3 % (0-14.5); WHITE BLOOD COUNT 6.5 10*3/uL (4.8-10.8)
[2017-04-21 09:36] LABS: CREATININE 2.62 mg/dL (0.55-1.02); POTASSIUM 3.9 mmol/L (3.5-5.1)
--- NOTE | 2017-04-21 10:03 | NUR ---
PATIENT PERFORMING SELF PERSONAL HYGEINE AND BED SHEETS WERE CHANGED. AWAITING DISCHARGE, PATIENT RETURNED TO CHAIR AND CONTINUED WATCHING TV. KARINA ASHLEYCC.
--- NOTE | 2017-04-21 10:49 | NUR ---
Pass/rr completed online in [employer] system. Level of care completed and faxed to area on agining. Waiting on level of care approval.
--- NOTE | 2017-04-21 12:04 | NUR ---
PATIENT RESTING COMFORTABLE IN CHAIR, WATCHING TV AND AWAITING LUNCH.NO COMPLAINTS OF PAIN OR SOB AT THIS TIME. KARINA ASHLEYCC
--- NOTE | 2017-04-21 12:48 | NUR ---
SHERITA GOODEN [id number] Please refer to the physician's history and physical for past medical history, comorbid conditions, and allergies. Diagnosis: ACUTE KIDNEY INJURY MEDICAL NON-COMPLIANCE Shivam Score: 17,AT RISK WOUND DESCRIPTIONS: Location of the wound: right great toe Type of wound: Thickness: Full Size: 1.0cm x 1.7cm x 0.1cm Tunneling: none Undermining: none Sinus Tract: none Presence of Exudate: Sanguineous Amount: Light Color: Red Odor: Foul Periwound Skin Appearance: Erythema Wound edges: approximated Pain (associated with wound): none at time of assessmen t How does patient state this happened? pt stated she follows with and hasnt seen the doctor in over a month since she has been here and home and coming back to hospital before she is able to make an appt to see the doctor. She stated she [place] [facility] [place]. Surface the patient is resting on: Position Pro SKIN PREVENTION RECOMMENDATION: 1. Pressure redistribution support surface as appropriate 2. Elevate heels 3. Remove boots/TEDS every shift and reapply 4. Head of bed 30 degrees as tolerated 5. Assess nutrition and hydration 6. Manage moisture 7. Avoid the use of containment devices while in bed 8. Use absorptive products on surfaces limit layers of linens on bed 9. Turn and reposition every 1-2 hours in bed and every 1 hour in chair as tolerated 10. Weight shifts every 15 minutes while up in chair 11. Offloading with pillows or device to keep heels elevated off bed 12. Monitor skin at least every shift 13. Inspect under medical devices twice a day WOUND TREATMENT RECOMMENDATIONS: Have patient follow up with podiatry since patient is leaving today.
--- NOTE | 2017-04-21 12:53 | NUR ---
REPORTED OFF TO FRANK PAK. PATIENT AWAITING RIDE, COMFORTABLE SITTING IN CHAIR, RELAXING. KARINA ASHLEYCC
--- NOTE | 2017-04-21 13:34 | NUR ---
level of care approved, still waiting on acceptance from [facility].
--- NOTE | 2017-04-21 14:38 | NUR ---
PHYSICAL THERAPY Patient presented to therapy in seated position with report of possibly going to [facility] today. Patient performed sit to stand transfer with SBA. Patient performed gait with W/W for 200' x 1 and Close Supervision. Patient was left in seated position with call light within reach and relative in room with her. CAMRON AYALA DISPATCH LEAD
--- NOTE | 2017-04-21 14:42 | NUR ---
Talked with Ana Valdovinos at the [facility] regarding patient placement, she stated she is just waiting on the ok from the [employer] administrator of the building, she will get back to me shortly with an answer.
--- NOTE | 2017-04-21 15:38 | NUR ---
[facility] has declined this patient; Called and spoke with patient's brother and explained. He asked for a referral to be made to [facility], contacted Josi and faxed referral. Waiting on acceptance.
[2017-04-21 16:00] VITALS: BP 139/42
[2017-04-21 20:00] VITALS: BP 171/45
--- NOTE | 2017-04-21 22:10 | NUR ---
PATIENT REQUESTED PAIN MEDICATION FOR LEG PAIN 01/10. NORCO GIVEN PER PRN ORDER.
--- NOTE | 2017-04-21 23:00 | NUR ---
PAIN SUBSIDED IN LEGS, /. PATIENT RESTING IN CHAIR.
[2017-04-22] VITALS: BP 135/47
--- NOTE | 2017-04-22 02:34 | NUR ---
PATIENT SITTING IN CHAIR ALL EVENING. WHEN ASKED IF SHE WANTED TO LIE DOWN IN BED SHE REFUSED. PATIENT COMPLAINED OF PAIN EARLIER IN LEGS, PAIN MEDICATION GIVEN AND HAS NOT COMPLAINED OF PAIN SINCE THAT TIME. PT. PLEASANT AND TALKATIVE.
--- NOTE | 2017-04-22 02:53 | NUR ---
24 HR chart check completed.
[2017-04-22 04:00] VITALS: BP 156/44
--- NOTE | 2017-04-22 04:37 | NUR ---
PATIENT SITTING IN RECLINER WITH CHAIR RECLINED, EYES CLOSED. PATIENT APPEARS TO BE SLEEPING, WAKENED EASILY, BGM= 211, OBTAINED. INSULIN COVERAGE GIVEN.
--- NOTE | 2017-04-22 07:20 | NUR ---
Patient has been accepted to [facility] and can go when medically stable for discharge.
[2017-04-22 08:00] VITALS: BP 166/50
--- NOTE | 2017-04-22 08:15 | NUR ---
PT RESTING UP IN CHAIR, JUST FINISHED AM CARE, PT REQUESTING TO HAVE BAND AID TO RIGHT GREAT TOE CHANGED AT THIS TIME. CLEANSED AREA WITH NSS, NEW BAND AID APPLIED, NOTABLE ODOR TO WOUND. PT IN NO DISTRESS. PT DENIES ANY PAIN. CALL LIGHT WITHIN REACH.
--- NOTE | 2017-04-22 08:54 | NUR ---
Patient is discharged to [facility], transportation scheduled for 11:00 am with her brother. NH and nursing notified.
--- NOTE | 2017-04-22 09:16 | NUR ---
Contacted [facility] and [facility], there are no beds available at either of these facilities, [facility] has a 6 month waiting list. Will continue to look for placement.
--- NOTE | 2017-04-22 09:33 | NUR ---
NURSE TO NURSE REPORT GIVEN TO PRAVEEN SALGUERO BANNER.
--- NOTE | 2017-04-22 10:49 | NUR ---
Discharge instructions reviewed with patient/family. Patient receptive and verbalizes understanding. Follow-up care arranged. Written instructions given to patient/family. Discharge instuctions sent with pt's brother to SNF. Pt trasnported to lobby via wheelchair, accompanied by staff. FLACO CEDEÑO
--- NOTE | 2017-04-22 12:19 | NUR ---
PHYSICAL THERAPY Patient presented to therapy in seated position with report of feeling better. Patient performed transfers with Supervision. Patient performed gait with W/W for 300' x 2 with Supervision. Patient performed ther ex to the bilateral LEs x 20 reps each in all planes. CAMRON AYALA RECORD SEARCHER
--- NOTE | 2017-04-22 17:15 | NUR ---
PHYSICAL THERAPY CO-SIGN I approve of the Phyical Therapy notes written above. YOLANDA GLASGOW
--- NOTE | 2017-04-27 14:34 | NUR ---
OCCUPATIONAL THERAPY CO-SIGN I approve of the Occupational Therapy notes written above. DANICA ULLOA OTR/L
== END 2017-04-22 10:50 | disposition other institution (70) | DRG 638 ==
LOC: 4E 10:43
PROVIDERS: ADMIT Internal Medicine
DX: E11.65 Type 2 diabetes mellitus with hyperglycemia (principal); N18.4 Chronic kidney disease, stage 4 (severe); K31.84 Gastroparesis; F33.0 Major depressive disorder, recurrent, mild; E11.21 Type 2 diabetes mellitus with diabetic nephropathy; Z68.41 Body mass index [BMI] 40.0-44.9, adult; E11.43 Type 2 diabetes mellitus with diabetic autonomic (poly)neuropathy; N39.0 Urinary tract infection, site not specified; R62.7 Adult failure to thrive; E66.9 Obesity, unspecified; F41.1 Generalized anxiety disorder; E11.610 Type 2 diabetes mellitus with diabetic neuropathic arthropathy; Z60.2 Problems related to living alone; G89.29 Other chronic pain; E78.5 Hyperlipidemia, unspecified; I12.9 Hypertensive chronic kidney disease with stage 1 through stage 4 chronic kidney disease, or unspecified chronic kidney disease; Z91.14 Patient's other noncompliance with medication regimen; Z79.899 Other long term (current) drug therapy; Z79.4 Long term (current) use of insulin; Z79.01 Long term (current) use of anticoagulants

== ENCOUNTER 2017-04-29 03:03 | Emergency (ER) | payer MEDICAID ==
[~2017-04-29] VITALS: Ht 170.1 cm; Wt 115.7 kg
[~2017-04-29 03:03] MED LIST changes: +BUMETANIDE0.5 MG PO; +HUMULIN 70/30 710 M1 SC; +LISINOPRIL5 MG PO
[2017-04-29 04:18] LABS: BASO # 0.1 10*3/uL (0.0-0.1); BASO % 0.4 % (0.0-1.0); EOS # 0.3 10*3/uL (0.0-0.4); EOS % 2.6 % (1.0-4.0); HEMATOCRIT 29.9 % (37.0-47.0); HEMOGLOBIN 9.5 g/dl (12.0-16.0); LYMPH # 1.2 10*3/uL (1.3-4.4); LYMPH % 9.7 % (27.0-41.0); MEAN CELL VOLUME 90.9 fl (81.0-99.0); MEAN CORPUSCULAR HGB 28.9 pg (27.0-31.0); MEAN CORPUSCULAR HGB CONC 31.8 g/dl (33.0-37.0); MEAN PLATELET VOLUME 10.2 fl (9.6-12.3); MONO % 7.7 % (3.0-9.0); PLATELET COUNT AUTOMATED 295 10*3/uL (130-400); RED BLOOD COUNT 3.29 10*6/uL (4.10-5.10); RED CELL DISTRI WIDTH 13.2 % (0-14.5); WHITE BLOOD COUNT 12.7 10*3/uL (4.8-10.8)
[2017-04-29 04:41] LABS: ALBUMIN 3.4 gm/dl (3.1-4.5); ALKALINE PHOSPHATASE 105 U/L (45-117); BUN 63 mg/dl (7-24); CHLORIDE 103 mmol/L (98-107); CREATININE 2.93 mg/dL (0.55-1.02); POTASSIUM 4.3 mmol/L (3.5-5.1); SGOT/AST 20 IU/L (3-35); SGPT/ALT 19 U/L (12-78); SODIUM 137 mmol/L (136-145); TOTAL PROTEIN 6.9 gm/dL (6.4-8.2)
[2017-04-29 04:43] LABS: TROPONIN I < 0.015 ng/ml (<0.045)
[2017-04-29] MEDS ORDERED: ATARAX,VISTARIL10 MG PO (04:49)
[2017-04-29 05:56] VITALS: BP 148/61
== END 2017-04-29 06:06 ==
LOC: ED 03:03
PROVIDERS: Student in an Organized Health Care Education/Training Program
DX: E11.649 Type 2 diabetes mellitus with hypoglycemia without coma (principal); I13.0 Hypertensive heart and chronic kidney disease with heart failure and stage 1 through stage 4 chronic kidney disease, or unspecified chronic kidney disease; E11.22 Type 2 diabetes mellitus with diabetic chronic kidney disease; N18.4 Chronic kidney disease, stage 4 (severe); I50.30 Unspecified diastolic (congestive) heart failure; E66.01 Morbid (severe) obesity due to excess calories; Z90.49 Acquired absence of other specified parts of digestive tract; Z98.51 Tubal ligation status; Z90.710 Acquired absence of both cervix and uterus; Z79.4 Long term (current) use of insulin; Z91.041 Radiographic dye allergy status; Z88.2 Allergy status to sulfonamides; Z88.8 Allergy status to other drugs, medicaments and biological substances

== ENCOUNTER 2017-05-19 11:40 | Inpatient (IN) | payer MEDICAID ==
[~2017-05-19] VITALS: Wt 94.6 kg
[2017-05-19] VITALS (9 sets, daily range): BP systolic 98–152; BP diastolic 31–58
--- NOTE | ~2017-05-19 | DS ---
[place], [place] DISCHARGE SUMMARY NAME: SHERITA GOODEN [facility] #: [id number] UNIT #: [id number] ROOM: 415 DOCTOR: ROSA PIPER MD BIRTHDATE: [birth year] DOS: 05/24/2017 DISCHARGE DIAGNOSES: 1. Acute kidney failure, apparently vascular from dehydration and medications, resolved with treatment. 2. Benign essential hypertension. 3. Adult failure to thrive with difficulty with ambulation. 4. Generalized anxiety disorder. 5. Diabetic gastroparesis. 6. Type 2 diabetes mellitus, uncontrolled, poor compliance with treatment. 7. Major depression, recurrent, mild. 8. Diabetic nephropathy. 9. Mixed hyperlipidemia. 10. Diabetic peripheral polyneuropathy and nephropathy. 11. History of Charcot joints. 12. Stage IV chronic kidney failure and diabetic nephropathy HOSPITAL COURSE: The patient presented to [facility] this time with complaint of dizziness and feeling weak and inability to walk. The patient again found to be in acute renal failure. Generally, the patient's kidney failure is related to hyperglycemia and also multiple medications she is taking are nephrotoxic including omeprazole and she gets dehydrated with Bumex. The patient's Bumex was put on hold and omeprazole was stopped along with labetalol and she was hydrated and her kidney function returned to BUN and creatinine of 46 and 2.1. The patient is in stage IV chronic kidney failure and diabetic nephropathy. The patient appears to have achieved maximum benefit from this admission, will discharge to home. Adult failure to thrive. The patient was to go to [facility], but arrangements could not be completed and she is now insisting on going home instead of going to assisted facility. Chronic leg edema and leg wounds, being followed by Podiatry. She will follow up with them as an outpatient and they also saw her during this admission. Hyperkalemia related to kidney failure, resolved with hydration. Benign essential hypertension, controlled with treatment. The patient's blood pressure medications have been adjusted to avoid kidney failure. The patient's lisinopril and labetalol have been stopped, hydralazine increased and amlodipine was also increased. Blood pressures are staying normal now with new treatment. Urinary tract infection with Enterococcus faecalis, treated appropriately with Augmentin. Blood cultures were negative. Uncontrolled diabetes. Blood sugars were monitored and treated and are better controlled now. The patient kept on a no concentrated sweet diet. Diabetic gastroparesis, asymptomatic at present time. [place], [place] DISCHARGE SUMMARY NAME: SHERITA GOODEN [facility] #: [id number] UNIT #: [id number] ROOM: [facility] DOCTOR: ROSA PIPER MD BIRTHDATE: [birth year] Adult failure to thrive. The patient worked with Physical Therapy during her stay at the hospital. LABORATORY DATA: BUN and creatinine 46 and 2.1. Normal serum electrolytes. Urine culture results as mentioned above. DISCHARGE MANAGEMENT: Bumex 1 mg daily, 70/30 insulin 15 units in the evening and 25 units in the morning, amlodipine 10 mg a day, hydralazine 100 mg 3 times a day, Plavix 75 mg a day, ropinirole 1 mg at bedtime, metoclopramide 5 mg 3 times a day, amitriptyline 25 mg daily, hydroxyzine 10 mg every 6 hours p.r.n., Vicodin p.r.n. ROSA PIPER MD CM:ISIDRO [phone] ROSA PIPER MD 05/24/172232 interface
--- NOTE | ~2017-05-19 | PR ---
[place], [place] PROGRESS NOTE NAME: SHERITA GOODEN UNIT #: [id number] ROOM: [facility] DOCTOR: ALEXANDRIA LIZARRAGAKENDRA J BIRTHDATE: [birth year] DOS: 05/22/2017 SUBJECTIVE: The patient presents for followup of diabetic ulcerations, plantar bilateral foot. OBJECTIVE: Results of the radiographs 3 foot views bilateral foot reveal osteoarthritis of the right foot. Left foot reveals severe degenerative and bone destruction remodeling at the tarsal joint with arterial calcification noted consistent with the patient's previous Charcot surgery. No signs of osseous erosion or infection. There is subchondral sclerosis and osteophyte formation at the mid foot consistent with previous Charcot arthropathy of the ulceration to the plantar arches noted. There are no signs of deep sinus tract or gas within the soft tissue noted. Results of the arterial ultrasound revealed, bilateral ankle pressures not obtained secondary to patient discomfort. No evidence of significant arterial occlusive disease. The ulceration, plantar right hallux is full thickness to subcutaneous tissue level upon debridement excisionally with a 10 blade. After debridement, the ulcer measured approximately 1.7 cm in width x 1.5 cm in length x 0.1 cm in depth. There was no deep sinus tract or purulence drainage noted. The ulceration, plantar left arch was noted to be partial thickness. Upon debridement excisionally with the 10 blade the ulceration measured approximately 2.8 cm in width x 1.4 cm in length x 0.9 cm in depth. There are no signs of deep sinus tract or infection. There is no localized ecchymosis in the tissue secondary to bruising from pressure from the prominent plantar exostosis noted on the lateral radiographs consistent with previous Charcot arthropathy. ASSESSMENT: Diabetic ulcerations, bilateral plantar foot. PLAN: Debrided the ulcerations excisionally with a 10 blade full thickness to subcutaneous tissue level on the right and partial thickness excisionally on the left foot. Applied Bactroban, 4 x 4s, Kerlix and tape. Ordered the same to be applied daily instead of just bandages. We will recheck the patient tomorrow or Wednesday for followup and possible further debridement, but the patient appears stable with current treatment plan at this time. [place], [place] PROGRESS NOTE NAME: SHERITA GOODEN UNIT #: [id number] ROOM: 415 DOCTOR: KENDRA IBRAHIM DPM BIRTHDATE: [birth year] KENDRA IBRAHIM DPM CM:KRYSTIN [id number] KENDRA IBRAHIM DPM 05/23/17 0055 interface
--- NOTE | ~2017-05-19 | CON ---
[place], [place] REPORT OF CONSULTATION NAME: SHERITA GOODEN UNIT #: [id number] ROOM: 415 DOCTOR: KENDRA IBRAHIM DPM BIRTHDATE: [birth year] DOS: 05/20/2017 SUBJECTIVE: The patient presents as 62-year-old diabetic patient with history of ulcerations of both feet. PAST MEDICAL HISTORY: Anemia of chronic disease, chronic kidney disease stage 4, COPD, diastolic CHF, essential hypertension, gastritis, recurrent UTIs, medical noncompliance, type 2 diabetes. PAST SURGICAL HISTORY: Charcot surgery of the left foot, appendectomy, cholecystectomy, hysterectomy, tonsillectomy, tubal ligation. SOCIAL HISTORY: Denies alcohol, illicit drug use. Ex-smoker, quit smoking 18 years, used to smoke 2 packs per day for 20 years. FAMILY HISTORY: Mother at age 87, cause diabetes with complications of renal disease. Father at age 72 of lung cancer. Brother of diabetes complications. ALLERGIES: SULFA, ASPARTAME, IVP DYE. PHYSICAL EXAMINATION: EXTREMITIES: Lower extremity examination: Pedal pulses are diminished bilateral. Decreased epicritic sensations bilateral. There are partial thickness ulcerations, bilateral foot, one to the plantar right hallux. There are no signs of erythema, drainage or full thickness breakdown. There is dry hyperkeratotic tissue overlying the ulcerative site. There is also an ulceration to the left plantar lateral arch that is also dry and hyperkeratotic in nature. No signs of acute abscess are localized. Bruising/ecchymosis of the tissue, but no signs of purulence or full thickness breakdown at this time. No signs of underlying abscess. ASSESSMENT: Diabetic ulcerations, bilateral foot; diabetic neuropathy; peripheral vascular disease. PLAN: Evaluation and management. Ordered Bactroban dressings to both sites daily with gauze. We will order noninvasive arterial vascular exam, bilateral lower extremity before performing any bedside debridement, also ordered radiographs of both feet to review each foot to rule out underlying osseous pathology and the patient will be followed tomorrow or Wednesday for debridement depending on testing. [place], [place] REPORT OF CONSULTATION NAME: SHERITA GOODEN UNIT #: [id number] ROOM: 415 DOCTOR: KENDRA IBRAHIM DPM BIRTHDATE: [birth year] KENDRA IBRAHIM DPM CM:CONSTR:REPORT OF CONSULTATION 10 05/20/17 1919 interface
--- NOTE | ~2017-05-19 | PR ---
[place], [place] PROGRESS NOTE [id number] #: [id number] ROOM: 415 DOCTOR: ROSA PIPER MD BIRTHDATE: [birth year] DOS: 05/23/2017 SUBJECTIVE: Patient continues to improve. She is requesting fdc placement. OBJECTIVE: VITAL SIGNS: Blood pressure 138/53, heart rate 73 beats per minute, breathing 18 times per minute, temperature 98 degrees Fahrenheit. GENERAL APPEARANCE: Generalized weakness. The patient is alert and oriented x 3, in no visible distress. HEENT AND NECK: Exam within normal limits. CARDIOVASCULAR SYSTEM: Heart rate is regular in rate and rhythm. S1 and S2 normally audible. LUNGS: Clear to auscultation. ABDOMEN: Soft, nontender. No obvious organomegaly. Bowel sounds are present. EXTREMITIES: Without significant cyanosis or edema. IMPRESSION: 1. Patient with acute over chronic kidney disease, improved with treatment. Patient's renal function had improved, but starting to show some deterioration after Bumex was restarted. I will watch it until tomorrow and stop Bumex completely if it is causing kidney failure. 2. Type 2 diabetes mellitus. Blood sugars are being monitored and treated. 3. Urinary tract infection with Enterococcus faecalis, being treated with amoxicillin. 4. Adult failure to thrive and difficulty with ambulation. Patient working with physical therapy. 5. Generalized anxiety disorder, being followed and treated. 6. Diabetic gastroparesis, is asymptomatic. 7. Benign essential hypertension with controlled blood pressures. ROSA PIPER MD CM:PNTRANS [phone] ROSA PIPER MD 05/24/17 005 interface
--- NOTE | ~2017-05-19 | PR ---
[place], [place] PROGRESS NOTE NAME: SHERITA GOODEN [facility] #: [id number] UNIT #: [id number] ROOM: 415 DOCTOR: RICARDO KONG DPM BIRTHDATE: [birth year] DOS: 05/24/2017 SUBJECTIVE: This patient is seen for followup of diabetic ulcerations plantar right great toe and plantar left foot. The patient has history of Charcot arthropathy on the left foot that is stable. She has no complaints in regards to her feet. The patient does have significant neuropathy. OBJECTIVE: Neurologic status is absent bilaterally. Arterial status appears intact. DP pedal pulses are palpable. Evidence of stable Charcot arthropathy in the left foot with no erythema or increased temperature. She does have a wound plantar left cuboid that is very clean and granular with no signs of infection, no purulence, drainage or malodor. Plantar right great toe has ulceration present that is full thickness without signs of infection. ASSESSMENT: Diabetes with stable Charcot arthropathy in left foot, diabetic ulcer bilaterally which is not infected. PLAN: Evaluation and management, continue with daily wound care, continue with appropriate offloading. We will continue to follow while she is in the hospital and then she could follow up with her regular vegetable preparer upon discharge. RICARDO KONG DPM CM:PNTRANS [id number] RICARDO KONG DPM 05/24/17 1423 interface
--- NOTE | ~2017-05-19 | PR ---
[place], [place] PROGRESS NOTE NAME: SHERITA GOODEN UNIT #: [id number] ROOM: 415 DOCTOR: ROAS PIPER MD BIRTHDATE: [birth year] DOS: 05/21/2017 SUBJECTIVE: The patient is starting to feel better, getting stronger with treatment. OBJECTIVE: VITAL SIGNS: Blood pressure 155/59, heart rate 71 beats per minute, breathing normally, afebrile. GENERAL APPEARANCE: Generalized weakness. HEENT AND NECK: Exam within normal limits. CARDIOVASCULAR SYSTEM: Heart rate is regular in rate and rhythm. S1 and S2 normally audible. LUNGS: Clear to auscultation. ABDOMEN: Soft, nontender. No obvious organomegaly. Bowel sounds are present. EXTREMITIES: Without significant cyanosis or edema. IMPRESSION: 1. The patient with acute kidney failure, improving with hydration. BUN and creatinine were 61 and 2.3 today. 2. Benign essential hypertension with hypotension from dehydration. Blood pressures have improved with hydration. I will stop the IV fluids and look at her kidney function on present treatment because of stopped multiple blood pressure medications including her diuretics and omeprazole which could be causing her recurrent kidney failure. 3. Type 2 diabetes mellitus. Blood sugars have been monitored and controlled. 4. Hyperkalemia, resolved with treatment. Potassium level normal at 4.7 today as kidney function is improving. 5. Generalized anxiety disorder treated and controlled. 6. Mixed hyperlipidemia is being treated with lovastatin. 7. Diabetic gastroparesis, is asymptomatic. The patient on metoclopramide. 8. Urinary tract infection with urine cultures growing Enterococcus faecalis to be treated with . DICTATION ENDS HERE. [place], [place] PROGRESS NOTE NAME: SHERITA GOODEN UNIT #: [id number] ROOM: 415 DOCTOR: ROSA PIPER MD BIRTHDATE: [birth year] ROSA PIPER MD CM:PNTRANS 26 27 ROSA PIPER MD 05/21/172326 interface
--- NOTE | ~2017-05-19 | WRIGHTHP ---
[place], [place] PATIENT HISTORY AND PHYSICAL EXAM NAME: SHERITA GOODEN [facility] #: [id number] UNIT #: [id number] ROOM: 415 DOCTOR: ROSA PIPER MD BIRTHDATE: [birth year] DOS: 05/19/2017 HISTORY OF PRESENT ILLNESS: The patient is a 62-year-old female with a past medical history of: 1. Adult failure to thrive. 2. Poor compliance with treatment. 3. Type 2 diabetes mellitus, uncontrolled. 4. Benign essential hypertension. 5. Chronic kidney disease stage 4. 6. Major depression, recurrent, mild. 7. Diabetic nephropathy. 8. Mixed hyperlipidemia. 9. Peripheral polyneuropathy and diabetic neuropathy with chronic pains. 10. Charcot joints. 11. Diabetic gastroparesis. 12. Generalized anxiety disorder. The patient presented to the Emergency Department at [facility] with complaints of dizziness and feeling weak and inability to walk. The patient was found to be in acute over chronic renal failure and recommended for admission and further management. The patient was admitted and started on hydration, normal saline and her blood pressure medications and diuretics were stopped. The patient is starting to feel better. No complaints of chest pain. No nausea, vomiting. No other GI or urinary symptoms. REVIEW OF SYSTEMS: LUNGS: No increasing shortness of breath. GASTROINTESTINAL: No nausea, vomiting, diarrhea or constipation. CARDIOVASCULAR: No chest pains or palpitations. FAMILY HISTORY: Noncontributory. HOME MEDICATIONS: The patient is on insulin, lisinopril, Bumex, Ditropan, omeprazole, hydralazine, lovastatin, metoclopramide, labetalol, Requip, amitriptyline, [place], Plavix, Norvasc. ALLERGIES: Known allergies to SULFUR, IODINE and ASPARTAME. PHYSICAL EXAMINATION: GENERAL: Alert, oriented x 3, in no visible distress, generalized weakness. HEENT AND NECK: Extraocular movements are intact. Sclerae are anicteric. Oral mucosa is moist and clean. No obvious facial weakness. Neck is supple without any lymphadenopathy. No thyromegaly. No JVD. No carotid arterial bruits. LUNGS: Clear to auscultation. No wheezing. No rhonchi. CARDIOVASCULAR SYSTEM: Heart rate is regular in rate and rhythm. S1 and S2 normally audible. No significant murmur or any other abnormal cardiac sounds. ABDOMEN: Soft, nontender. No obvious organomegaly. Bowel sounds are present. No obvious herniation. EXTREMITIES: Without significant cyanosis or edema. Warm to touch. CENTRAL NERVOUS SYSTEM: Alert and oriented x 3. Cranial nerves II-XII are [place], [place] PATIENT HISTORY AND PHYSICAL EXAM NAME: SHERITA GOODEN [facility] #: [id number] UNIT #: [id number] ROOM: [facility] DOCTOR: ROSA PIPER MD BIRTHDATE: [birth year] intact. Speech is normal. The patient is able to move all extremities. Normal muscle strength. Deep tendon reflexes are equal on both sides. Plantars were downgoing. LABORATORY DATA: Phosphorus level at 3.5, magnesium at 2.6. BUN and creatinine improved to 77 and 3.6 from 88 and 5 at admission. No leukocytosis. Hemoglobin of 10. IMPRESSION: 1. The patient with acute stage V over chronic kidney failure related to uncontrolled diabetes and hyperglycemia along with dehydration and hypotension. All her symptoms are improving after her blood pressure medications were stopped and I also stopped her Bumex and omeprazole and started her on slow hydration with normal saline. The patient's kidney function is improving and she is also starting to feel stronger. A Nephrology consult has been obtained. 2. Benign essential hypertension. The patient presented with hypotension and all of her blood pressure medicines were stopped. Now, the patient's blood pressure gas increased to 196/62 ____ over 62 diastolic and now restarting her on hydralazine and Norvasc and I will continue to monitor closely on a monitored bed. 3. Hyperkalemia, being treated with hydration with normal saline, apparently related to acute kidney failure. 4. Type 2 diabetes mellitus, uncontrolled. I am monitoring her sugars, started her on a no concentrated sweet diet and her sugars are ranging between 78 to 260. 5. Urinary tract infection with urine cultures growing heavy gram-positive cocci, to be treated with antibiotics depending on culture results. 6. Diabetic gastroparesis, for which patient takes metoclopramide. 7. Poor compliance with treatment and adult failure to thrive. The patient is being educated in relation to her health and treatment. 8. Generalized anxiety disorder, treated and controlled. 9. Mixed hyperlipidemia, treated with lovastatin, which has been continued. ROSA PIPER MD CM:NICOLS:PATIENT HISTORY AND PHYSICAL EXAMINATION [id number] 11 ROSA PIPER MD 05/20/171811 interface
--- NOTE | ~2017-05-19 | PR ---
[place], [place] PROGRESS NOTE [id number] #: [id number] ROOM: 415 DOCTOR: ROSA PIPER MD BIRTHDATE: [birth year] DOS: 05/22/2017 SUBJECTIVE: The patient is breathing much better, but she feels weak and is requesting to go to care home facility for physical therapy. OBJECTIVE: GENERAL APPEARANCE: The patient is alert and oriented x 3, in no visible distress. VITAL SIGNS: Blood pressure 142/64, heart rate 74 beats per minute, afebrile. HEENT AND NECK: Exam within normal limits. CARDIOVASCULAR SYSTEM: Heart rate is regular in rate and rhythm. S1 and S2 normally audible. LUNGS: Clear to auscultation. ABDOMEN: Soft, nontender. No obvious organomegaly. Bowel sounds are present. EXTREMITIES: Without significant cyanosis or edema. IMPRESSION: 1. The patient with acute over chronic kidney failure, continues to improve with adjustment of her medications, which included discontinuing her omeprazole, reducing her Bumex and stopping blood pressure medications. The patient is only left on hydralazine and Norvasc now and her blood pressures have normalized. 2. Urinary tract infection with Enterococcus faecalis, to be treated with amoxicillin. 3. Type 2 diabetes mellitus. Blood sugars are being monitored and much better controlled, ranging between 94-200 mostly. 4. Adult failure to thrive and difficulty ambulating. The patient working with physical therapy. 5. Generalized anxiety disorder, treated and controlled. 6. Diabetic gastroparesis, is asymptomatic. 7. Benign essential hypertension with controlled blood pressures. ROSA PIPER MD CM:PNTRANS [phone] ROSA PIPER MD 05/23/17 0857 interface
[~2017-05-19 11:40] MED LIST changes: +ATARAX,VISTARIL10 MG PO
[2017-05-19 12:19] LABS: BASO # 0.1 10*3/uL (0.0-0.1); BASO % 0.6 % (0.0-1.0); EOS # 0.5 10*3/uL (0.0-0.4); EOS % 4.6 % (1.0-4.0); HEMATOCRIT 31.6 % (37.0-47.0); LYMPH # 1.4 10*3/uL (1.3-4.4); LYMPH % 14.3 % (27.0-41.0); MEAN CELL VOLUME 88.5 fl (81.0-99.0); MEAN CORPUSCULAR HGB CONC 31.6 g/dl (33.0-37.0); MEAN PLATELET VOLUME 10.6 fl (9.6-12.3); MONO # 0.9 10*3/uL (0.1-1.0); MONO % 9.1 % (3.0-9.0); NEUT % 70.7 % (47.0-73.0); PLATELET COUNT AUTOMATED 291 10*3/uL (130-400); RED BLOOD COUNT 3.57 10*6/uL (4.10-5.10); RED CELL DISTRI WIDTH 13.3 % (0-14.5); WHITE BLOOD COUNT 9.9 10*3/uL (4.8-10.8)
[2017-05-19 12:28] LABS: ACT PARTIAL THROMBO TIME 24.5 SECONDS (20.8-31.5)
[2017-05-19 12:34] LABS: ALBUMIN 3.8 gm/dl (3.1-4.5); ALKALINE PHOSPHATASE 122 U/L (45-117); BUN 88 mg/dl (7-24); CHLORIDE 104 mmol/L (98-107); CREATININE 5.03 mg/dL (0.55-1.02); LIPASE 43 U/L (73-393); POTASSIUM 4.6 mmol/L (3.5-5.1); SGOT/AST 18 IU/L (3-35); SGPT/ALT 25 U/L (12-78); SODIUM 137 mmol/L (136-145); TOTAL PROTEIN 7.5 gm/dL (6.4-8.2)
[2017-05-19 12:34] LABS: BILIRUBIN NEGATIVE (NEGATIVE); BLOOD NEGATIVE (NEGATIVE); CLARITY SL CLOUDY (CLEAR); COLOR YELLOW (YELLOW); GLUCOSE 1+ (NEGATIVE); KETONE NEGATIVE (NEGATIVE); NITRITE NEGATIVE (NEGATIVE); PH 5.5 (5.0-9.0); UROBILINOGEN 0.2 E.U./dl (0.2-1.0)
[2017-05-19 12:35] LABS: TROPONIN I < 0.015 ng/ml (<0.045)
[2017-05-19] MEDS ORDERED: BUMETANIDE1 MG PO (12:42)
[2017-05-19] MEDS ORDERED: ZESTRIL10 MG PO (12:43)
[2017-05-19 12:58] LABS: LEUKO ESTERASE NEGATIVE (NEGATIVE)
[2017-05-19 13:01] LABS: BACTERIA 2+; MUCOUS 1+
[2017-05-19] MEDS ORDERED: NOVOLIN 70100 UNIT/1 SC ×2 (16:37)
[2017-05-20 00:02] VITALS: BP 177/52
[2017-05-20 06:58] LABS: BASO # 0.1 10*3/uL (0.0-0.1); BASO % 0.8 % (0.0-1.0); EOS # 0.5 10*3/uL (0.0-0.4); EOS % 6.2 % (1.0-4.0); HEMATOCRIT 30.5 % (37.0-47.0); HEMOGLOBIN 9.7 g/dl (12.0-16.0); LYMPH # 2.1 10*3/uL (1.3-4.4); MEAN CORPUSCULAR HGB 28.6 pg (27.0-31.0); MEAN CORPUSCULAR HGB CONC 31.8 g/dl (33.0-37.0); MEAN PLATELET VOLUME 10.5 fl (9.6-12.3); MONO # 0.9 10*3/uL (0.1-1.0); NEUT # 4.2 10*3/uL (2.3-7.9); NEUT % 54.2 % (47.0-73.0); PLATELET COUNT AUTOMATED 269 10*3/uL (130-400); RED BLOOD COUNT 3.39 10*6/uL (4.10-5.10); RED CELL DISTRI WIDTH 13.2 % (0-14.5); WHITE BLOOD COUNT 7.7 10*3/uL (4.8-10.8)
[2017-05-20 07:29] LABS: CREATININE 3.57 mg/dL (0.55-1.02)
[2017-05-20 07:48] LABS: POTASSIUM 5.8 mmol/L (3.5-5.1)
[2017-05-20 08:00] VITALS: BP 189/55
[2017-05-20 10:00] LABS: PHOSPHOROUS 3.5 mg/dL (2.5-4.9)
[2017-05-20 11:14] VITALS: BP 158/48
[2017-05-20 15:13] VITALS: BP 196/62
[2017-05-20 20:00] VITALS: BP 170/72
[2017-05-21] VITALS: BP 149/50
[2017-05-21 04:00] VITALS: BP 157/51
[2017-05-21 06:50] LABS: PHOSPHOROUS 3.3 mg/dL (2.5-4.9)
[2017-05-21 06:51] LABS: CREATININE 2.36 mg/dL (0.55-1.02)
[2017-05-21 06:56] LABS: POTASSIUM 4.7 mmol/L (3.5-5.1)
[2017-05-21 08:00] VITALS: BP 170/60
[2017-05-21 12:00] VITALS: BP 181/63
[2017-05-21 16:00] VITALS: BP 155/59
[2017-05-21 20:00] VITALS: BP 160/60
[2017-05-22] VITALS: BP 155/55
[2017-05-22 07:49] LABS: ALBUMIN 3.4 gm/dl (3.1-4.5); CREATININE 1.99 mg/dL (0.55-1.02); PHOSPHOROUS 3.2 mg/dL (2.5-4.9)
[2017-05-22 08:00] VITALS: BP 147/61
[2017-05-22 12:00] VITALS: BP 142/64
[2017-05-22 16:00] VITALS: BP 167/58
[2017-05-22 20:00] VITALS: BP 158/75
[2017-05-23] VITALS: BP 150/57
[2017-05-23 07:30] LABS: POTASSIUM 4.7 mmol/L (3.5-5.1)
[2017-05-23 07:39] LABS: ALBUMIN 3.4 gm/dl (3.1-4.5); CREATININE 2.16 mg/dL (0.55-1.02); PHOSPHOROUS 3.1 mg/dL (2.5-4.9)
[2017-05-23 07:42] VITALS: BP 147/53
[2017-05-23 12:00] VITALS: BP 138/53
[2017-05-23 16:00] VITALS: BP 144/49
[2017-05-23 20:00] VITALS: BP 170/60
[2017-05-24] VITALS: BP 162/57
[2017-05-24 05:49] LABS: ALBUMIN 3.4 gm/dl (3.1-4.5); CREATININE 2.1 mg/dL (0.55-1.02); PHOSPHOROUS 3.5 mg/dL (2.5-4.9); POTASSIUM 4.7 mmol/L (3.5-5.1)
[2017-05-24 08:00] VITALS: BP 156/57
[2017-05-24 12:00] VITALS: BP 146/62
[2017-05-24 16:00] VITALS: BP 138/60
[2017-05-24] MEDS ORDERED: HYDRALAZINE HYD50 MG PO (19:11)
[2017-05-24] MEDS ORDERED: BUMETANIDE1 MG PO (19:11)
[2017-05-24] MEDS ORDERED: AMLODIPINE BESY10 MG PO (19:11)
== END 2017-05-24 19:55 | disposition home or self-care (01) | DRG 622 ==
LOC: ED 11:40 → 4E 15:47 → EDHOLD 15:47 → 4E 16:02
PROVIDERS: Emergency Medicine; Internal Medicine; Internal Medicine Nephrology
PROC: 0JBR0ZZ Excision of Left Foot Subcutaneous Tissue and Fascia, Open Approach (ICD-10-PCS; principal; 2017-05-22)
PROC: 0JBQ0ZZ Excision of Right Foot Subcutaneous Tissue and Fascia, Open Approach (ICD-10-PCS; 2017-05-22)
DX: E11.65 Type 2 diabetes mellitus with hyperglycemia (principal); N17.0 Acute kidney failure with tubular necrosis; I13.2 Hypertensive heart and chronic kidney disease with heart failure and with stage 5 chronic kidney disease, or end stage renal disease; D72.1 Eosinophilia; E11.21 Type 2 diabetes mellitus with diabetic nephropathy; E11.42 Type 2 diabetes mellitus with diabetic polyneuropathy; I95.9 Hypotension, unspecified; E11.621 Type 2 diabetes mellitus with foot ulcer; E83.41 Hypermagnesemia; N39.0 Urinary tract infection, site not specified; E87.2 Acidosis; I50.32 Chronic diastolic (congestive) heart failure; F33.0 Major depressive disorder, recurrent, mild; N18.5 Chronic kidney disease, stage 5; E11.43 Type 2 diabetes mellitus with diabetic autonomic (poly)neuropathy; E11.610 Type 2 diabetes mellitus with diabetic neuropathic arthropathy; E11.51 Type 2 diabetes mellitus with diabetic peripheral angiopathy without gangrene; K31.84 Gastroparesis; E87.5 Hyperkalemia; D72.810 Lymphocytopenia; E66.3 Overweight; K29.70 Gastritis, unspecified, without bleeding; E86.0 Dehydration; R62.7 Adult failure to thrive; F41.1 Generalized anxiety disorder; E78.2 Mixed hyperlipidemia; B95.2 Enterococcus as the cause of diseases classified elsewhere; L97.529 Non-pressure chronic ulcer of other part of left foot with unspecified severity; L97.519 Non-pressure chronic ulcer of other part of right foot with unspecified severity; D63.8 Anemia in other chronic diseases classified elsewhere; J44.9 Chronic obstructive pulmonary disease, unspecified; R00.1 Bradycardia, unspecified; Z90.49 Acquired absence of other specified parts of digestive tract; Z90.710 Acquired absence of both cervix and uterus; Z79.899 Other long term (current) drug therapy; Z88.2 Allergy status to sulfonamides; Z88.8 Allergy status to other drugs, medicaments and biological substances; Z91.041 Radiographic dye allergy status; Z90.89 Acquired absence of other organs; Z98.51 Tubal ligation status; Z87.891 Personal history of nicotine dependence; Z83.3 Family history of diabetes mellitus; Z81.8 Family history of other mental and behavioral disorders; Z80.1 Family history of malignant neoplasm of trachea, bronchus and lung; Z79.4 Long term (current) use of insulin

== ENCOUNTER 2017-06-28 18:30 | Inpatient (IN) | payer MEDICAID ==
[2017-06-28] VITALS (7 sets, daily range): BP systolic 97–104; BP diastolic 35–50
[~2017-06-28] VITALS: Ht 157.5 cm; Wt 94.4 kg
--- NOTE | ~2017-06-28 | PR ---
[place], [place] PROGRESS NOTE [id number] UN[facility] #: [id number] ROOM: 415 DOCTOR: VALARIE BAPTISTE MD BIRTHDATE: [birth year] DOS: SUBJECTIVE: The patient states that she has a lot of back pain and she has not received her pain medication for a few days. OBJECTIVE: VITAL SIGNS: Graphic trend shows a pressure 153/59, pulse of 64, respirations 18, temperature 98.3. LUNGS: Diminished breath sounds. No wheezes heard. HEART: Regular. ABDOMEN: Obese. EXTREMITIES: No edema noted. No labs available yet. ASSESSMENT AND PLAN: 1. Acute kidney injury from acute tubular necrosis. The patient's kidney functions are slowly improving. Awaiting the labs today to decide on IV fluid management. 2. Charcot foot. Awaiting MRI studies. 3. Benign hypertension, controlled. 4. Tremors, possibly multifactorial, which is improving. 5. Chronic back pain, we will restart her on a low dose [place] as well as lidocaine patch for local application. 6. Type 2 diabetes mellitus, insulin-dependent. Blood sugars 265, 169 yesterday. I will increase the dose of the Amaryl. VALARIE BAPTISTE MD CM:PNTRANS 8 VALARIE BAPTISTE MD 07/01/17 0853 interface
--- NOTE | ~2017-06-28 | DS ---
[place], [place] DISCHARGE SUMMARY NAME: SHERITA GOODEN [facility] #: [id number] UNIT #: [id number] ROOM: 415 DOCTOR: VALARIE BAPTISTE MD BIRTHDATE: [birth year] DOS: 07/02/2017 DIAGNOSES: 1. Acute kidney injury from acute tubular necrosis from hypotension. 2. Type 2 diabetes mellitus, insulin-dependent, poorly controlled. 3. Hyperkalemia from renal failure. 4. Benign hypertension. 5. Chronic low back pain. 6. Charcot's joint. 7. Diabetic neuropathy. 8. History of carotid endarterectomy. 9. Adult failure to thrive. 10. Major depression, recurrent, mild, noncompliance with poor insight to medical problems. DISCHARGE MEDICATIONS: The patient's medications on discharge will be avoid nephrotoxic medications including nonsteroidals, NELY inhibitors, angiotensin receptor blockade. Her discharge medications will be Remeron 7.5 mg at bedtime, glimepiride 4 mg daily, Lidoderm patch for local application to back daily, remove in the evening, oxybutynin 5 daily, lovastatin 40 daily, Requip 1 mg at bedtime, Plavix 75 daily, amlodipine 10 daily, omeprazole 20 daily, Zofran 4 mg q. 4 hours p.r.n. for nausea, Anusol 30 q. 12 hours p.r.n. for hemorrhoids, bisacodyl 10 mg daily p.r.n. for constipation, milk of mag 30 mL daily p.r.n. for constipation, Bumex 1 mg Wednesday, Wednesday, Fridays as needed only if her legs are swollen otherwise please do not give her any diuretics. If her blood pressure does go up, if systolic is above 160, please give her labetalol 100 mg daily p.r.n., coverage scale for insulin, for blood sugars to be checked twice daily. DISCHARGE INSTRUCTIONS: Diet is ADA 1800. PT, OT consultation. Oxygen 2 liters nasal cannula p.r.n. Code status is comfort care. HOSPITAL COURSE: The patient is 62 years old, comes in after being found to have abnormal labs at the halfway that she resides at currently. She was found to be in acute kidney failure with creatinine close to 12 and potassium of 7. The patient was admitted. IV fluids were ordered. A consultation with Renal was obtained. Also, calcium gluconate, Kayexalate were given and potassium levels came down. With IV fluids, the kidney functions have slowly improved and normalized. Several of her antihypertensives, nephrotoxic meds as well as diuretics were discontinued. Her blood sugars are fairly controlled on the Amaryl and the coverage scale. Her urine culture only shows 10,000 colonies. The Recinos catheter has been discontinued. She did have it upon admission. Her last labs we have is this morning, BUN is 53, creatinine 2.58, GFR of 19. The patient is to be discharged back to the halfway and please order PT, OT for the patient while there. [place], [place] DISCHARGE SUMMARY NAME: SHERITA GOODEN UNIT #: [id number] ROOM: [facility] DOCTOR: VALARIE BAPTISTE MD BIRTHDATE: [birth year] VALARIE BAPTISTE MD CM:DISCHINNA 0837 [id number] VALARIE BAPTISTE MD 07/02/17 1004 interface
--- NOTE | ~2017-06-28 | WRIGHTHP ---
[place], [place] PATIENT HISTORY AND PHYSICAL EXAM NAME: SHERITA GOODEN [facility] #: [id number] UNIT #: [id number] ROOM: [facility] DOCTOR: VALARIE BAPTISTE MD BIRTHDATE: [birth year] DOS: 06/28/2017 HISTORY OF PRESENT ILLNESS: The patient is 62 years old, well known to us. She was last admitted to the hospital 05/19/2017, discharged 05/24/2017. At that time, her BUN was 42, creatinine was 2.3. She was discharged to home. The next day, she was transferred to [facility] after insurance arranged for her long-term care placement. She was transferred from her home to [facility] on 05/25/2017. She has been there for almost a month now. The patient states that two days after she got there, she noticed increasing tremor in her hands and she has not been feeling very good. Finally they gwyn some labs yesterday and she was told that the labs were and the patient was sent out. She denies having any chest pains, palpitations, does not have any fever or chills. States that she has been eating well. Her blood sugars have been fluctuating. Denies having any nausea, any emesis. Does not have any chest pains or palpitations. She arrived at the Emergency Room yesterday and was noted to have a creatinine of 12 and potassium of 7 and was admitted. This morning, the patient does not have any new complaints. She did receive fluids during the night as well as calcium and Kayexalate and the potassium has come down to 5.2. The patient continues to have tremors. PAST MEDICAL HISTORY: Significant for: 1. Chronic kidney disease stage 4. 2. Benign hypertension. 3. Type 2 diabetes mellitus, insulin-dependent. 4. Chronic back pain. 5. Charcot joint. 6. Peripheral neuropathy, diabetic. 7. Carotid endarterectomy. 8. Adult failure to thrive. 9. Noncompliance with poor insight to medical problems. 10. Major depression, recurrent. MEDICATIONS: The patient was supposedly on at the group home were amitriptyline 25 at bedtime, amlodipine 10, Bumex 1 mg, Plavix 75, hydralazine 100 t.i.d., [place] 5 q. 6, labetalol 300 b.i.d., lisinopril 10 daily, lovastatin 40 daily, metoclopramide 5 t.i.d., Prilosec 20 daily, oxybutynin 5 daily, Requip 1 mg at bedtime, insulin 70/30, 25 in the morning, 15 in the evening. SOCIAL HISTORY: Nonsmoker, does not use any alcohol. She is currently a resident of [facility], a long-term care resident. PHYSICAL EXAMINATION: VITAL SIGNS: Blood pressure is 113/40, pulse of 71, respirations 12, temperature 97.9. LUNGS: Diminished breath sounds. HEART: Regular, tachycardic. ABDOMEN: Obese, soft. EXTREMITIES: With trace edema present. She also has tremors of her entire body. [place], [place] PATIENT HISTORY AND PHYSICAL EXAM NAME: SHERITA GOODEN UNIT #: [id number] ROOM: [facility] DOCTOR: VALARIE BAPTISTE MD BIRTHDATE: [birth year] ASSESSMENT AND PLAN: 1. Acute kidney disease in a patient with chronic stage 4 kidney disease. The patient has been admitted. Slow IV hydration has been ordered. Consultation with Dr. Boykin was obtained. 2. Hyperkalemia, possibly from ATN and acute kidney disease. The patient was given medications during the night and the potassium levels have come down. The patient was admitted to ICU for monitoring. 3. Adult failure to thrive. I discussed with the patient her code status. She does not want to be intubated and she does not want to have cardiopulmonary resuscitation, so the patient is being made comfort care and will be transferred to a regular floor. 4. Type 2 diabetes mellitus, insulin-dependent. Blood sugar 117 this morning. She has been started on ADA diet and blood sugars to be checked twice daily. 5. Benign hypertension. Restart low dose amlodipine. All other medications on hold right now. 6. Tremors, possibly from acute kidney injury. The patient has been started on low dose [place]. VALARIE BAPTISTE MD CM:HISPHYS:PATIENT HISTORY AND PHYSICAL EXAMINATION 1036 VALARIE BAPTISTE MD 06/29/17 1034 interface
--- NOTE | ~2017-06-28 | PR ---
[place], [place] PROGRESS NOTE NAME: SHERITA GOODEN [facility] #: [id number] UNIT #: [id number] ROOM: 415 DOCTOR: BUDDY HERRING MD BIRTHDATE: [birth year] DOS: 07/01/2017 SUBJECTIVE: The patient was seen and evaluated in followup of acute kidney injury that was severe. Overall, is doing much better. Renal function seems to be nearing her prior baseline. Her creatinine was as high as 12.6 on the , is down to 3.36. She was a 2.1 at time of discharge on May 24, but she fluctuates in the mid 2s mostly. Her main complaint now is that of increased inability to walk. She is having some difficulties with weakness as well as just a feeling that her legs are not working well for her. She is sitting in the chair comfortably and doing her word search puzzles right now. OBJECTIVE: VITAL SIGNS: 154/54, 97.9, 95, 16, 95% on room air. GENERAL: Awake, alert and oriented, no acute distress, pleasant mood and affect, sitting comfortably in a chair. LUNGS: Clear, but decreased at the bases secondary to effort. CARDIOVASCULAR: Regular rate. No audible rub. HEENT: Extraocular muscles are intact. NECK: Supple without JVD or lymphadenopathy. ABDOMEN: Soft, nontender, nondistended. EXTREMITIES: Lower extremities, mild edema, increased weakness, mild tremulousness. LABORATORIES AND DIAGNOSTICS: Urine growing Klebsiella 10,000 colony forming units. MRI of the left foot was done showing some Charcot joint. Sodium was 140, potassium 4.6, chloride 106, bicarbonate 24, BUN 71, creatinine 3.36, glucose 277, calcium 7.8. ASSESSMENT AND PLAN: Severe acute kidney injury, this is improving. Continue supportive care. We will discontinue IV fluids as oral intake is improving. Continue to avoid nephrotoxic medications. Discontinue use of any NELY inhibitors and ARBs indefinitely despite her history of diabetes and proteinuria given the multiple episodes of acute kidney injury that she has had now. Avoid NSAIDs, nephrotoxic medications and hypotensive events. Monitor blood pressures and blood counts closely. Hyperkalemia, acidosis, hyperphosphatemia are all improving and be followed serially. Defer ambulatory dysfunction to PCP service. [place], [place] PROGRESS NOTE NAME: SHERITA GOODEN UNIT #: [id number] ROOM: [facility] DOCTOR: BUDDY HERRING MD BIRTHDATE: [birth year] BUDDY HERRING MD CM:PNTRANS 1909 07 BUDDY HERRING MD 07/01/172204 interface
--- NOTE | ~2017-06-28 | PR ---
[place], [place] PROGRESS NOTE NAME: SHERITA GOODEN [facility] #: [id number] UNIT #: [id number] ROOM: 415 DOCTOR: VALARIE BAPTISTE MD BIRTHDATE: [birth year] DOS: 07/02/2017 SUBJECTIVE: The patient is sitting in a chair, refused physical therapy stating that she is unable to walk well. OBJECTIVE: VITAL SIGNS: Graphic trend shows pressure 140/62, pulse of 86, respirations 22, temperature 98.2. LUNGS: Clear. HEART: Regular. ABDOMEN: Obese. EXTREMITIES: Without any edema. MRI of the foot shows Charcot joint. No acute infectious process was seen. Also, advanced degenerative disk disease. ASSESSMENT AND PLAN: 1. Acute kidney injury from acute tubular necrosis, which is corrected and back to her baseline. 2. Benign hypertension, controlled. 3. Adult failure to thrive. The patient to go back to [facility] today. I appreciate all consultants' input. VALARIE BAPTISTE MD CM:PNTRANS [phone] VALARIE BAPTISTE MD 07/02/17 1448 interface
--- NOTE | ~2017-06-28 | PR ---
[place], [place] PROGRESS NOTE NAME: SHERITA GOODEN [facility] #: [id number] UNIT #: [id number] ROOM: 415 DOCTOR: VALARIE BAPTISTE MD BIRTHDATE: [birth year] DOS: SUBJECTIVE: The patient is resting comfortably, does not have any new complaints. OBJECTIVE: VITAL SIGNS: Graphic trend shows blood pressure 131/57, pulse of 78, respirations 20, temperature 97.7. LUNGS: Diminished breath sounds. HEART: Regular. ABDOMEN: Obese. EXTREMITIES: Without any edema. Chronic Charcot arthropathy of the left foot. No open wound. The area does not appear to be fluctuant. No drainage. No redness. LABORATORY DATA: WBC count is 9.3, hemoglobin 8.8, hematocrit 27.8, platelets 299. Comprehensive: Glucose 210, BUN 107, creatinine 6.97, sodium 136, potassium 4.6, chloride 100, bicarbonate 22. ASSESSMENT AND PLAN: 1. This is a patient who presents with acute renal failure from acute tubular necrosis. The patient is on IV fluids with improvement in the kidney functions. She is also diuresing. She also has good urine output. 2. Chronic Charcot's of the left foot. MRI will be ordered. 3. Benign hypertension, controlled on just amlodipine now. 4. Type 2 diabetes mellitus, insulin-dependent. Blood sugar is fairly well controlled for this patient. We will restart a low dose of insulin. VALARIE BAPTISTE MD CM:PNTRANS 1 0849 VALARIE BAPTISTE MD 06/30/17 0847 interface
[~2017-06-28 18:30] MED LIST changes: +NOVOLIN 70100 UNIT/1 SC; +ZESTRIL10 MG PO
[2017-06-28 19:17] LABS: BASO % 0.4 % (0.0-1.0); EOS # 0.4 10*3/uL (0.0-0.4); EOS % 4.4 % (1.0-4.0); HEMATOCRIT 30.1 % (37.0-47.0); HEMOGLOBIN 9.3 g/dl (12.0-16.0); LYMPH # 1.7 10*3/uL (1.3-4.4); LYMPH % 16.9 % (27.0-41.0); MEAN CELL VOLUME 88.3 fl (81.0-99.0); MEAN CORPUSCULAR HGB 27.3 pg (27.0-31.0); MEAN CORPUSCULAR HGB CONC 30.9 g/dl (33.0-37.0); MEAN PLATELET VOLUME 10.5 fl (9.6-12.3); MONO # 1.2 10*3/uL (0.1-1.0); NEUT # 6.5 10*3/uL (2.3-7.9); NEUT % 64.9 % (47.0-73.0); PLATELET COUNT AUTOMATED 277 10*3/uL (130-400); RED BLOOD COUNT 3.41 10*6/uL (4.10-5.10); RED CELL DISTRI WIDTH 13.7 % (0-14.5); WHITE BLOOD COUNT 9.9 10*3/uL (4.8-10.8)
[2017-06-28 19:26] LABS: BILIRUBIN 1+ (NEGATIVE); BLOOD NEGATIVE (NEGATIVE); CLARITY SL CLOUDY (CLEAR); COLOR YELLOW (YELLOW); GLUCOSE NEGATIVE (NEGATIVE); KETONE NEGATIVE (NEGATIVE); LEUKO ESTERASE TRACE (NEGATIVE); NITRITE NEGATIVE (NEGATIVE); SPECIFIC GRAVITY >= 1.030 (1.005-1.030); UROBILINOGEN 0.2 E.U./dl (0.2-1.0)
[2017-06-28 19:31] LABS: BACTERIA 3+; MUCOUS 1+
[2017-06-28 19:34] LABS: ALBUMIN 3.2 gm/dl (3.1-4.5); ALKALINE PHOSPHATASE 88 U/L (45-117); BUN 135 mg/dl (7-24); CHLORIDE 90 mmol/L (98-107); SGOT/AST 15 IU/L (3-35); SGPT/ALT 21 U/L (12-78); SODIUM 125 mmol/L (136-145); TOTAL PROTEIN 6.8 gm/dL (6.4-8.2)
[2017-06-28 19:36] LABS: POTASSIUM 7.1 mmol/L (3.5-5.1); TROPONIN I < 0.015 ng/ml (<0.045)
[2017-06-28] MEDS ORDERED: HUMULIN R500 UNIT/1 SQ (19:52)
[2017-06-28] MEDS ORDERED: FLONASE ALLERG9.9 ML NAS (19:55)
[2017-06-28] MEDS ORDERED: LABETALOL HCL300 MG PO (19:56)
[2017-06-28] MEDS ORDERED: LISINOPRIL10 M1 PO (19:57)
[2017-06-28] MEDS ORDERED: PRILOSEC20 M1 PO (20:00)
[2017-06-28] MEDS ORDERED: ZOFRAN4 MG PO (20:01)
[2017-06-29 00:45] VITALS: BP 121/38
[2017-06-29] MEDS ORDERED: ANUSOL HC30 GM PO (00:57)
[2017-06-29] MEDS ORDERED: BISACODYL10 MG R (00:59)
[2017-06-29] MEDS ORDERED: MILK OF MA400 MG/51 PO (01:07)
[2017-06-29 04:00] VITALS: BP 113/40
[2017-06-29 05:03] LABS: CREATININE 11.3 mg/dL (0.55-1.02)
[2017-06-29 05:35] LABS: ACT PARTIAL THROMBO TIME 24.7 SECONDS (20.8-31.5)
[2017-06-29 05:46] LABS: POTASSIUM 5.2 mmol/L (3.5-5.1)
[2017-06-29 08:00] VITALS: BP 127/47
[2017-06-29 10:32] LABS: ALBUMIN 2.8 gm/dl (3.1-4.5); PHOSPHOROUS 8.4 mg/dL (2.5-4.9); POTASSIUM 5.4 mmol/L (3.5-5.1)
[2017-06-29 12:00] VITALS: BP 132/37
[2017-06-29 16:00] VITALS: BP 130/50
[2017-06-29 20:00] VITALS: BP 138/53
[2017-06-30] VITALS: BP 131/57; BP 139/57
[2017-06-30 05:54] LABS: HEMATOCRIT 27.8 % (37.0-47.0); HEMOGLOBIN 8.8 g/dl (12.0-16.0); MEAN CELL VOLUME 87.4 fl (81.0-99.0); MEAN CORPUSCULAR HGB 27.7 pg (27.0-31.0); MEAN CORPUSCULAR HGB CONC 31.7 g/dl (33.0-37.0); MEAN PLATELET VOLUME 10.8 fl (9.6-12.3); PLATELET COUNT AUTOMATED 299 10*3/uL (130-400); RED BLOOD COUNT 3.18 10*6/uL (4.10-5.10); RED CELL DISTRI WIDTH 13.7 % (0-14.5); WHITE BLOOD COUNT 9.3 10*3/uL (4.8-10.8)
[2017-06-30 06:35] LABS: ALBUMIN 2.7 gm/dl (3.1-4.5); CREATININE 6.97 mg/dL (0.55-1.02); TOTAL PROTEIN 6.3 gm/dL (6.4-8.2)
[2017-06-30 06:57] LABS: PLATELET SUFFICIENCY NORMAL (NORMAL); TOTAL CELLS COUNTED 100 #CELLS
[2017-06-30 07:24] LABS: POTASSIUM 4.3 mmol/L (3.5-5.1)
[2017-06-30 08:00] VITALS: BP 149/43
[2017-06-30 12:00] VITALS: BP 154/61
[2017-06-30 16:00] VITALS: BP 161/58
[2017-06-30 19:57] VITALS: BP 168/61
[2017-07-01 00:07] VITALS: BP 153/59
[2017-07-01 08:00] VITALS: BP 148/52
[2017-07-01 10:00] LABS: CREATININE 3.36 mg/dL (0.55-1.02); POTASSIUM 4.6 mmol/L (3.5-5.1)
[2017-07-01 12:00] VITALS: BP 162/54
[2017-07-01 16:00] VITALS: BP 154/54
[2017-07-01 20:00] VITALS: BP 140/61
[2017-07-02] VITALS: BP 151/60
[2017-07-02 06:26] LABS: CREATININE 2.58 mg/dL (0.55-1.02); POTASSIUM 4.4 mmol/L (3.5-5.1)
[2017-07-02 08:00] VITALS: BP 148/62
[2017-07-02] MEDS ORDERED: Lidoderm 5% Patch T (08:30)
[2017-07-02] MEDS ORDERED: MIRTAZAPINE15 M2 PO (08:30)
[2017-07-02] MEDS ORDERED: GLIMEPIRIDE4 M1 PO (08:30)
== END 2017-07-02 10:08 | DRG 682 ==
LOC: ED 18:30 → 4E 23:01 → EDHOLD 23:01 → ICCU 23:01 → 4E 06-29 12:01
PROVIDERS: Internal Medicine; Internal Medicine Nephrology; Physician Assistant
DX: N17.0 Acute kidney failure with tubular necrosis (principal); E43 Unspecified severe protein-calorie malnutrition; E11.22 Type 2 diabetes mellitus with diabetic chronic kidney disease; K31.84 Gastroparesis; E11.65 Type 2 diabetes mellitus with hyperglycemia; E83.39 Other disorders of phosphorus metabolism; E11.43 Type 2 diabetes mellitus with diabetic autonomic (poly)neuropathy; E87.1 Hypo-osmolality and hyponatremia; F33.0 Major depressive disorder, recurrent, mild; I13.0 Hypertensive heart and chronic kidney disease with heart failure and stage 1 through stage 4 chronic kidney disease, or unspecified chronic kidney disease; I50.32 Chronic diastolic (congestive) heart failure; E83.42 Hypomagnesemia; E83.41 Hypermagnesemia; N18.4 Chronic kidney disease, stage 4 (severe); Z66 Do not resuscitate; E11.610 Type 2 diabetes mellitus with diabetic neuropathic arthropathy; E87.5 Hyperkalemia; Z51.5 Encounter for palliative care; E66.9 Obesity, unspecified; D64.9 Anemia, unspecified; J44.9 Chronic obstructive pulmonary disease, unspecified; G89.29 Other chronic pain; M54.5 Low back pain; R62.7 Adult failure to thrive; Z91.14 Patient's other noncompliance with medication regimen; Z88.2 Allergy status to sulfonamides; Z88.8 Allergy status to other drugs, medicaments and biological substances; Z91.041 Radiographic dye allergy status; Z79.4 Long term (current) use of insulin; Z79.899 Other long term (current) drug therapy; Z90.49 Acquired absence of other specified parts of digestive tract; Z90.710 Acquired absence of both cervix and uterus; Z98.51 Tubal ligation status; Z87.891 Personal history of nicotine dependence; Z80.1 Family history of malignant neoplasm of trachea, bronchus and lung; Z83.3 Family history of diabetes mellitus; Z81.8 Family history of other mental and behavioral disorders; Z83.6 Family history of other diseases of the respiratory system; Z82.49 Family history of ischemic heart disease and other diseases of the circulatory system; Z68.38 Body mass index [BMI] 38.0-38.9, adult

== ENCOUNTER 2017-10-22 19:24 | Inpatient (IN) | payer MEDICAID ==
[~2017-10-22] VITALS: Ht 157.4 cm; Wt 90.5 kg
--- NOTE | ~2017-10-22 | PR ---
[place], [place] PROGRESS NOTE NAME: SHERITA GOODEN [facility] #: [id number] UNIT #: [id number] ROOM: 411 DOCTOR: VALARIE BAPTISTE MD BIRTHDATE: [birth year] DOS: SUBJECTIVE: The patient is not having any complaints today. Discussed with Dr. Flores as well as Dr. Calderon. OBJECTIVE: VITAL SIGNS: Graphic trend shows a pressure of 159/61, pulse of 77, respirations 18, temperature 98.5. LUNGS: Clear. HEART: Regular. ABDOMEN: Obese. EXTREMITIES: Without any edema. I did open up the dressings and the wound looks clean. ASSESSMENT AND PLAN: 1. Charcot's arthropathy. No osteomyelitis. 2. Poorly healing diabetic wound. Antibiotics have been ordered for a week. 3. Benign hypertension, controlled. 4. Type 2 diabetes mellitus, poorly controlled with diabetic ketoacidosis, which has resolved. VALARIE BAPTISTE MD CM:PNTRANS [phone] VALARIE BAPTISTE MD 10/28/17 0156 interface
--- NOTE | ~2017-10-22 | PR ---
[place], [place] PROGRESS NOTE NAME: SHERITA GOODEN UNIT #: [id number] ROOM: 411 DOCTOR: [facility]ONA [facility] B[facility] [birth year] DOS: 10/26/2017 SUBJECTIVE: Denies any chest discomfort now, no dyspnea, no syncope. The patient had a precordial chest discomfort yesterday. Troponin is up 0.36, 0.399, but is within the range for the stage 4 chronic kidney disease. Unlikely, this is primarily from any significant myocardial necrosis. Hemodynamically, clinically appears to be stable. Creatinine at this time is 2.05. Creatinine clearance estimated is 24; it is rather low significantly. The patient and the son are aware of the increased risk from any contrast injection, especially with the severe inlet and outlet peripheral vascular disease and also wound from the diabetes and peripheral vascular disease, hence opted for the conservative management. No angiogram or intervention. The hemoglobin is 9.1, fairly stable for this patient. OBJECTIVE: VITAL SIGNS: Stable. GENERAL: Not in any acute distress at this time. SKIN: Warm and dry, not diaphoretic. No cyanosis. NECK: Supple. VASCULAR: Peripheral edema noted, hence discontinued the amlodipine being a calcium channel yordan that may cause some interference with the old injury, healing without any intervention at this time, and instead of amlodipine giving the long-acting mononitrate. LUNGS: Diminished breath sounds at bases. HEART: S1, S2 regular, 1-2/6 systolic murmur. ABDOMEN: Moderately obese, soft. DIAGNOSES: Severe peripheral arterial disease with wound, no osteomyelitis, and opted for conservative management. Does not appear to have any significant myocardial necrosis. The patient with angina and underlying coronary artery disease also may be considered, probably multivessel, and angina has subsided. The mild congestive heart failure appears to be stabilized. Chronic kidney disease stage 4 and hypertension, borderline. PLAN: I added a beta-yordan with vasodilator effect such as second generation beta yordan such as Coreg 6.25 b.i.d. and then added the nitrate. We will continue the current conservative management. No intervention, no angiographic or surgical procedure for wound care per Dr. Kalyan Flores. [place], [place] PROGRESS NOTE NAME: SHERITA GOODEN UNIT #: [id number] ROOM: [facility] DOCTOR: [facility]Y [facility]ONA [facility] BIR[facility]: [birth year] KODI SAM MD CM:PNTRANS [id number] KALYAN SAM MD [facility] 10/26/17 1131 interface
--- NOTE | ~2017-10-22 | PR ---
[place], [place] PROGRESS NOTE NAME: SHERITA GOODEN [facility] #: [id number] UNIT #: [id number] ROOM: 411 DOCTOR: RICARDO KONG DPM BIRTHDATE: [birth year] DOS: 10/25/2017 SUBJECTIVE: This patient is seen today for followup. She is 2 days status post I and D of the left foot. States she feels okay. She denies fever, nausea or sweats. She just came back to her room from having an MRI done and is not read yet. OBJECTIVE: Neurologic status is absent. Pedal pulses are diminished. Chronic dependent edema seen bilaterally. The plantar left foot wound is clean and granular. There is no remaining purulent drainage, no fluctuance, no signs of remaining abscess clinically. No bone is visible or palpable. There is no significant surrounding erythema, no malodor, no erythema dorsally. It appears her Charcot has worse from the last time I saw her, which has been quite some time were collapse and more prominent plantar laterally. LABORATORY DATA: Her white blood cell count is elevated today at 15.7. MRI is pending and she does have PAD as evident by her vascular exam. ASSESSMENT: Status post incision and drainage of abscess, left foot Charcot arthropathy, diabetic neuropathy. PLAN: Packing and dressing is changed. MRI is pending. The foot looks clean and granular with no remaining signs of infection clinically. We will see what the MRI shows. Her Charcot is worse and then she is going to [place] Wednesday. Dr. Calderon is going to address her PAD. Continue with IV antibiotics and wound care, see what the MRI shows and follow up tomorrow. RICARDO KONG DPM CM:PNTRANS [phone] RICARDO KONG DPM 11/01/17 0848 interface
--- NOTE | ~2017-10-22 | PR ---
[place], [place] PROGRESS NOTE NAME: SHERITA GOODEN [facility] #: [id number] UNIT #: [id number] ROOM: 411 DOCTOR: ROSA PIPER MD BIRTHDATE: [birth year] DOS: 10/26/2017 SUBJECTIVE: The patient with diabetic left foot ulcer, being followed by Podiatry. She is feeling better. OBJECTIVE: VITAL SIGNS: Blood pressure 160/66, heart rate of 97 beats per minute, breathing 20 times per minute, temperature 98.5 degrees Fahrenheit. GENERAL APPEARANCE: The patient is alert and oriented x 3, in no visible distress. HEENT AND NECK: Exam within normal limits. CARDIOVASCULAR SYSTEM: Heart rate is regular in rate and rhythm. S1 and S2 normally audible. LUNGS: Clear to auscultation. ABDOMEN: Soft, nontender. No obvious organomegaly. Bowel sounds are present. EXTREMITIES: Diabetic left foot ulcer. IMPRESSION: 1. Left heel diabetic foot ulcer, poorly healing, being followed by Podiatry. The patient also getting wound care and being treated with IV antibiotics. 2. Type 2 diabetes mellitus, uncontrolled. Blood sugars being monitored and treated. The patient with acute congestive heart failure, systolic type, with left ventricular ejection fraction of about 50%, being followed and treated. Shortness of breath is improving. 3. Chronic kidney disease stage 4 and diabetic nephropathy. Kidney function is being followed. 4. Benign essential hypertension, treated and controlled. 5. Coronary artery disease of the [place] vessels without chest pains. 6. Mixed hyperlipidemia, treated with simvastatin. ROSA PIPER MD CM:PNTRANS [id number] ROSA PIPER MD 10/27/17 1524 interface
--- NOTE | ~2017-10-22 | DS ---
[place], [place] DISCHARGE SUMMARY NAME: SHERITA GOODEN [facility] #: [id number] UNIT #: [id number] ROOM: 411 DOCTOR: VALARIE BAPTISTE MD BIRTHDATE: [birth year] DOS: 10/27/2017 DIAGNOSES: 1. Poorly healing diabetic wound of the left heel, status post debridement. 2. Charcot arthropathy. 3. Type 2 diabetes mellitus, poorly controlled with diabetic ketoacidosis. 4. Benign hypertension. 5. Chronic diastolic dysfunction. 6. Elevated troponin from chronic kidney disease. 7. Chronic kidney disease stage 4 with acute diastolic congestive heart failure. 8. Klebsiella pneumoniae of the urine, which is only 10,000 colonies. Wound culture showing Staphylococcus auricularis. 9. Peripheral vascular disease DISCHARGE MEDICATIONS: Isosorbide 30 mg daily, Coreg 6.25 b.i.d., aspirin 81 daily, Bumex 1 mg p.o. b.i.d., Linzess 72 mcg daily, Zosyn 2.25 IV q. 8 hours., oxybutynin 5 daily, Requip 1 mg at bedtime, omeprazole 20 daily, Remeron 7.5 at bedtime, Zocor 40 daily, Plavix 75 daily, amlodipine 10 daily, doxycycline 100 b.i.d. for 7 days. HOSPITAL COURSE: This patient is very well known to us. She comes in with complaints of increased drainage from her left heel. After being evaluated in the ER, she was admitted. The patient was placed on IV antibiotics. Consultation with Dr. Flores was obtained. Arterial Doppler, MRI and bone scan was ordered. There was evidence of osteomyelitis on an MRI of the cuboid bone, but Dr. Flores feels it is most likely Charcot neuropathy and does not require long-term antibiotics. ESR is elevated at 98. The white cell count was elevated at 15.7 on admission. The patient, while on the antibiotics, continued to get increasingly short of breath. IV fluids were discontinued and the patient was given IV diuretics for acute diastolic congestive heart failure. The patient same day had an elevated blood sugar of 800 and was found to be in DKA and was transferred to the ICU, was placed on IV fluids and IV insulin. Once the DKA improved, the patient was transferred back out of the ICU into a regular floor and was started on a home dose of insulin. Blood sugars are in the low 200s. Infectious Disease and Cardiology were consulted. Dr. Calderon wanted to take her for arteriogram, but the patient declined. The patient indeed does have chronic kidney disease stage 4 and would not be an ideal candidate. Urine culture did show Klebsiella pneumoniae 10,000 colonies, which is sensitive to the Zosyn that she has been on. The wound culture grew Staphylococcus auricularis, which is sensitive to the vancomycin that she has been on. The patient is overall stable and improved and is not having any new problems. The plan therefore is to discharge her back to the longterm. She also had some minimal cellulitis of the left lower leg, which has resolved. A CT of the chest was done for possibility of mass lesion and this has shown some bilateral pleural effusions and atelectasis, no mass was noted. The patient is to have an ADA diet, 1800 calories and blood sugars to be checked twice daily. [place], [place] DISCHARGE SUMMARY NAME: [facility] GOOD[facility] [id number] UNIT #: [id number] ROOM: 411 DOCTOR: VALARIE BAPTISTE MD BIRTHDATE: [birth year] VALARIE BAPTISTE MD CM:ISIDRO [phone] VALARIE BAPTISTE MD 10/27/17 1414 interface
--- NOTE | ~2017-10-22 | CON ---
[place], [place] REPORT OF CONSULTATION NAME: [facility] GOOD[facility] [id number] UNIT #: [id number] ROOM: 522 DOCTOR: ROYAL KURTZ,AUGUST BIRTHDATE: [birth year] DOS: HISTORY OF PRESENT ILLNESS: The patient is a 62-year-old female who was admitted from an area fci. She had had a couple of debridements over the last week or so as an outpatient by her city routeman. Two days after the last debridement, she developed erythema, swelling and pain in the left lower extremity with erythema that extended to the knee as well as purulent discharge from the left heel wounds that have been debrided. She was seen by Dr. Flores this morning and according to the patient and the nurse, he debrided that at bedside with possible plans to take to surgery in the future. She had IV vancomycin and Zosyn ordered on admission. Thus far, cultures are pending from urine and from the foot. The Gram stain has gram-positive cocci in pairs and clusters that would be consistent with Staph as well as gram-negative rods. I see no blood cultures. She has had no fevers or chills. States the pain is improved since her debridement at bedside this morning, tolerating the antibiotics without issue. PAST MEDICAL HISTORY: As above as well as diabetes, hypertension, chronic kidney disease stage 4, chronic low back pain, Charcot foot deformity, diabetic neuropathy, major depression. SOCIAL HISTORY: She is a reformed smoker, quit smoking 18 years ago, has a [id number] history. Nondrinker, no illicit drug use, chronic fci resident. LABORATORY DATA: Cultures as reviewed above. WBC is 11.0, platelets 458. Sed rate of 125, BUN 72, creatinine 2.56. Lactic acid 1.6. LFTs within normal limits. C-reactive protein 3.77. CURRENT MEDICATIONS: Vancomycin, Remeron, Zocor, Requip, Ditropan, Prilosec, Linzess, Lantus, Plavix, Norvasc, [place], Zosyn. REVIEW OF SYSTEMS: As above in history of present illness. Again, pain is improving in the left foot. States she has good appetite. No nausea or vomiting, no diarrhea. No rash or itch. No fevers or shaking chills. No headache or dizziness. No chest pain or palpitations. Does have some left lower extremity edema. Further review of systems unremarkable x 10. Does have neuropathy with her diabetes. ALLERGIES: IVP DYE, SULFA AND ASPARTAME. PAST MEDICAL HISTORY: Appendectomy, cholecystectomy, hysterectomy, tonsillectomy, tubal ligation. FAMILY MEDICAL HISTORY: Mother at the age of 87, had diabetes, also Alzheimer's. Father at the age of 72 with lung cancer. Brother had diabetes with complications as well. OBJECTIVE: VITAL SIGNS: Temp 97.6, pulse 80, respirations 18, BP 150/48. [place], [place] REPORT OF CONSULTATION NAME: SHERITA GOODEN UNIT #: [id number] ROOM: 522 DOCTOR: ROYAL KURTZAUGUST BIRTHDATE: [birth year] GENERAL: A 62-year-old female, in no acute distress. HEENT: Normocephalic, no thrush. LUNGS: Clear to auscultation bilaterally. Respirations even and unlabored. HEART: Regular rhythm. No murmur appreciated. ABDOMEN: Soft, nondistended, positive bowel sounds. EXTREMITIES: Mild bilateral lower extremity edema, left greater than right. Left foot with bulky dressing with some bleeding noted, applied earlier today per Dr. Flores with erythema extending above it, consistent with cellulitis. SKIN: Otherwise, warm, dry, free of rashes. ASSESSMENT: Left heel wound infection with cellulitis and possible osteomyelitis. PLAN: She is to have an MRI done. We can cancel the bone scan that will offer no further benefit and evaluation for osteomyelitis. X-ray reviewed and it was nondiagnostic. Follow up on the wound cultures. Continue vancomycin and Zosyn pending culture results. Case discussed with Dr. Manriquez. AUGUST TESSIE PAIGE Charito Manriquez MD CM:CONSTR:REPORT OF CONSULTATION 46 10/23/17 2030 interface
--- NOTE | ~2017-10-22 | PR ---
[place], [place] PROGRESS NOTE NAME: SHERITA GOODEN [facility] #: [id number] UNIT #: [id number] ROOM: 411 DOCTOR: VALARIE BAPTISTE MD BIRTHDATE: [birth year] DOS: SUBJECTIVE: The patient was seen by Dr. Flores today and debridement of the wound was performed. PHYSICAL EXAMINATION: GENERAL: Today, she is awake and alert and oriented, in some discomfort from the debridement. VITAL SIGNS: Blood pressure is 154/80, pulse of 80, respirations 20 and temperature 98.3. LUNGS: Diminished breath sounds, clear. HEART: Regular. ABDOMEN: Obese. EXTREMITIES: Without any edema. ASSESSMENT AND PLAN: 1. Poorly healing diabetic wound of the left heel with possible osteomyelitis. Awaiting MRI and bone scan on Wednesday. The patient is on IV antibiotics. The PICC line will be placed tomorrow and the plan is to possibly discharge her back to the fpc with IV antibiotics once we have the MRI results. 2. Type 2 diabetes mellitus. Blood sugars fairly controlled. VALARIE BAPTISTE MD CM:PNTRANS [id number] VALARIE BAPTISTE MD 11/05/17 0929 interface
--- NOTE | ~2017-10-22 | CON ---
[place], [place] REPORT OF CONSULTATION NAME: SHERITA GOODEN [facility] #: [id number] UNIT #: [id number] ROOM: 411 DOCTOR: KENDRA IBRAHIM DPM BIRTHDATE: [birth year] DOS: 10/23/2017 SUBJECTIVE: The patient presents as a 62-year-old female with chief complaint of a wound on the bottom of her left foot, which been evident for over a week. The patient states it was debrided by another physician approximately 2 weeks ago. She has noticed redness and swelling for over a week. The patient was admitted for infection. PAST MEDICAL PROBLEMS: Acute kidney failure with tubular necrosis, anemia of chronic kidney disease stage IV, COPD, diastolic CHF, essential hypertension, gastritis, gastroparesis, history of recurrent UTIs, hyperglycemia, hyperkalemia, hypermagnesemia, hyperphosphatemia, hyponatremia, medical noncompliance, normocytic anemia, severe protein-calorie malnutrition and type 2 diabetes. PAST SURGICAL HISTORY: Appendectomy, cholecystectomy, hysterectomy, tonsillectomy, tubal ligation. SOCIAL HISTORY: Denies illicit drug. Use alcohol. Quit smoking 18 years ago. Used to smoke 2 packs a day for 20 years. LOWER EXTREMITY EXAMINATION: Pedal pulses diminished edema. Venous insufficiency, both lower legs. There is an abscess of the plantar aspect of the left arch. There is a blister extending the entire plantar mid foot extending along the medial right foot. After sterile prep and debridement, there is foul odor serous drainage noted. There was also sinus tract, which was probed with sterile instrumentation encompass transversely along the plantar arch due to the patient's Charcot foot. This was incised bluntly with a #10 blade down to the level of the deep soft tissue muscle layer. There is further evidence of serous drainage noted, which was drained, approximately 6 mL of serous drainage was noted, cultured and drained. There is no apparent deep sinus tract to bone. Again, the patient has a cavus type foot noted. The patient has pending MRI and bone scans. The patient's WBC was 11. Venous Doppler was negative for DVT. Again intraoperatively appears bedside that the abscess was opened completely and there was no further evidence of deep sinus tract or abscess noted at this time. ASSESSMENTS: 1. Abscess, plantar left foot. 2. Charcot arthropathy. 3. Diabetic neuropathy. PLAN: Evaluation and management due to the acute drainage and acute situation. It was decided after agree with the patient to perform bedside debridement. The patient had already eaten breakfast and it was decided that the patient would be opened immediately bedside after the left foot was prepped and draped in the usual aseptic manner. There is a large serous fluid-filled blister encompassing the entire plantar left arch, which extended over 10 cm in length. This was [place], [place] REPORT OF CONSULTATION NAME: SHERITA GOODEN UNIT #: [id number] ROOM: 411 DOCTOR: KENDRA IBRAHIM DPM BIRTHDATE: [birth year] de-roofed with sterile tissue nippers and excised in toto. Serous drainage with foul odor was noted and drained. There are also 2 sinus tracts noted, one to the plantar lateral and one to the plantar medial left arch and mid foot. This was probed with sterile instrumentation and was opened with a sterile 10 blade. The abscess was drained. Serous drainage was noted with foul odor. Approximately 6 mL of drainage was noted and drained and cultured including Gram stain, aerobic, anaerobic, acid fast and fungal cultures. Further probing with sterile instrumentation was performed and no deep sinus tract to bone was identified at this time. The area was flushed with sterile saline. Half inch plain packing was utilized with wet to dry dressing and Betadine-soaked Adaptic was applied to the post-blister sites to the left mid foot and arch. The patient had an order for MRI and bone scan by Dr. Johnson already ordered. The patient has arterial studies also scheduled to be performed today. Discussed with the patient that depending on results if bone involvement is suggested, the patient may need to go to the OR Wednesday for further debridement and possible bone biopsy with Jamshidi needle. The patient understood this. The patient is to maintain offloading of the left foot with a bedside commode and limit weight to the area. The patient is to keep her legs elevated. The orders for the packing change will be performed twice daily. Cultures were ordered. Consult Infectious Disease and the patient will be seen tomorrow Wednesday depending on testing and again the patient may need to go to the OR Wednesday if bone involvement is suggested, which could not be performed at bedside. The patient was agreeable to this and will be followed accordingly. KENDRA IBRAHIM DPM CM:CONSTR:REPORT OF CONSULTATION 1204 11/04/17 0738 interface
--- NOTE | ~2017-10-22 | CON ---
[place], [place] REPORT OF CONSULTATION NAME: SHERITA GOODEN UNIT #: [id number] ROOM: 411 DOCTOR: CECY BARAHONA KODI JAY BIRTHDATE: [birth year] DOS: CARDIOLOGY CONSULTATION Case discussed with Dr. Johnson and Dr. Flores consulted me to evaluate the peripheral artery disease and possible intervention to improve the wound healing. Doppler ultrasound is abnormal indicating both inlet and outlet vessel disease, could be critical stenotic vessels. The patient also has chronic kidney disease, which appears to be stage 4 and hence this procedure should be staged and evaluate by monitoring the renal function very carefully and we will have the transportation analyst involved throughout the process. The patient has cellulitis along with the wound on the left foot and ankle. The patient had a bedside debridement by Dr. Flroes. The patient also has urinary tract infection. The patient has a history of chronic diabetes, hypertension. No history of smoking. The chest x-ray with a history of mild congestive heart failure and lung consolidation in the left lower lobe also is considered, possible pneumonia and underlying mass, although the infiltrate cannot be excluded with Dr. Johnson monitoring and following closely. PHYSICAL EXAMINATION: VITAL SIGNS: Stable. LUNGS: Diminished breath sounds at bases. Basilar rhonchi. HEART: S1, S2, regular. ABDOMEN: Soft, obese. SKIN: Color is good, not diaphoretic. No cyanosis. EXTREMITIES: Swelling and wound and cellulitis of the right foot and ankle. RECTAL, GENITAL, AND BREASTS: Deferred unrelated. LABORATORY DATA: Creatinine is elevated. DIAGNOSES: Mild pulmonary congestion and type 2 diabetes, poorly controlled with markedly elevated sugars and chronic kidney disease, stage 4 and severe peripheral artery disease with wound and cellulitis in the right leg. PLAN: As discussed with Dr. Johnson. I will communicate with Dr. Flores. Wait for a couple of days for her renal function to stabilize and then do the staged procedure with angiogram first and wait and stabilize renal function, do the intervention and have the transportation analyst involved during this process and options, procedures, complications, morbidity and mortality, risks explained to the patient in detail. I opted for further management with angiogram and intervention. [place], [place] REPORT OF CONSULTATION NAME: SHERITA GOODEN UNIT #: [id number] ROOM: 411 DOCTOR: CECY BARAHONA FACC,KODI BIRTHDATE: [birth year] KODI SAM MD CM:CONSTR:REPORT OF CONSULTATION 1353 11/05/17 0756 interface HAIDER PAIGE CNP and KENDRA GARY
--- NOTE | ~2017-10-22 | PR ---
[place], [place] PROGRESS NOTE NAME: [id number] UNIT #: [id number] ROOM: 411 DOCTOR: VALARIE BAPTISTE MD BIRTHDATE: [birth year] DOS: 10/25/2017 SUBJECTIVE: The patient was found to be in DKA, was transferred to the ICU, was placed on an insulin drip. Blood sugars are slowly coming down; the acidosis seems to be correcting. She denies having any chest pains or palpitations. OBJECTIVE: VITAL SIGNS: Graphic trend shows pressure 160/55, pulse of 80, respirations 16, temperature 98.0. LUNGS: Diminished breath sounds. No wheezes, rales or rhonchi heard. HEART: Regular. ABDOMEN: Obese. EXTREMITIES: Without any edema. Left leg is wrapped as dressings have not been removed. ASSESSMENT AND PLAN: 1. Poorly healing wound of the left heel with most likely underlying osteomyelitis. We are waiting for the MRI and bone scan this morning. If it does show osteomyelitis then will suggest a PICC line and possible placement back to the correction with IV antibiotics. 2. Type 2 diabetes mellitus, poorly controlled with diabetic ketoacidosis, on IV insulin. We will manage with continued slow IV hydration. 3. Acute onset of shortness of breath. Chest x-ray showing mild congestive heart failure, possible left lower lobe pneumonia, underlying mass. The patient is awaiting a CT of the chest without contrast. 4. Peripheral vascular disease noted on arterial Doppler. Would avoid contrast studies because of underlying kidney disease. 5. Chronic kidney disease, stage 4. Overall, prognosis remains poor. Avoid contrast, nephrotoxic medications, 6. Hypertension, controlled. VALARIE BAPTISTE MD CM:PNTRANS [id number] VALARIE BAPTISTE MD 10/26/17 0351 interface
--- NOTE | ~2017-10-22 | PR ---
[place], [place] PROGRESS NOTE NAME: SHERITA GOODEN [facility] #: [id number] UNIT #: [id number] ROOM: 411 DOCTOR: KENDRA IBRAHIM DPM BIRTHDATE: [birth year] DOS: 10/26/2017 SUBJECTIVE: The patient seen post I and D of abscess, plantar left foot. The patient is feeling no pain at this time, feels much improved. OBJECTIVE: Pedal pulses diminished; chronic dependent edema, bilateral, the plantar left foot. Ulceration site, post abscess site, reveals no signs of purulent drainage or foul odor. No further erythema or edema. The erythema and edema to the medial foot and ankle has completely resolved since Wednesday. The patient is much improved at this time clinically. The patient's WBC has decreased to 11.6 today. ESR is at 95. The patient's MRI of the left mid foot revealed evidence of the ulceration with possible osteomyelitis or neuropathic fracture changes which would clinically correlate with the patient's Charcot deformity Charcot neuropathic changes noted to the hindfoot and mid foot. ASSESSMENT: Post incision and drainage of abscess, plantar left foot, Charcot arthropathy. PLAN: Discussed with the patient. Clinically, she is healing very well at this time and the MRI findings are inconsistent with osteomyelitis due to the patient's clinical findings consistant with charcot foot with collapse of the longitudinal arch. The findings in my opinion are related to Charcot arthropathy and not definitively osteomyelitis. Due to the patient's decreased arterial situation, I recommend the patient undergo the vascular consultation before any further surgical intervention is performed. Antibiotics per Infectious Disease. I will discuss the case with Dr. Johnson before proceeding with anything surgically possible[facility] but again clinically I do not believe there are clinical signs of osteomyelitis as the wound does not probe to bone and the MRI findings are inconsistent definitively with osteomyelitis, but instead may be related to the Charcot foot. The patient is apparently being discharged back to the senior living today or tomorrow. We will follow with the patient accordingly. KENDRA IBRAHIM DPM CM:PNTRANS [id number] KENDRA IBRAHIM DPM 11/04/17 0719 interface
--- NOTE | ~2017-10-22 | WRIGHTHP ---
[place], [place] PATIENT HISTORY AND PHYSICAL EXAM NAME: SHERITA GOODEN [facility] #: [id number] UNIT #: [id number] ROOM: 411 DOCTOR: VALARIE BAPTISTE MD BIRTHDATE: [birth year] DOS: 10/22/2017 HISTORY OF PRESENT ILLNESS: This patient is very well known to us. She lives in a senior living. The patient states that she had a debridement of the left heel wound about a week ago and it continues to have increased drainage. She was on p.o. antibiotics, but it did not seem to subside. Today, she developed some redness and swelling of the left leg, so she decided to come to the Emergency Room where she was evaluated. The left leg was red and painful and tender to touch. Venous Doppler was done in the Emergency Room, which did not show any DVT. She was admitted with diagnosis of cellulitis. This morning the patient's left heel seems to have a lot of drainage, which is foul smelling and yellowish color. She complains of minimal discomfort in her foot. She denies having any chest pains, palpitations. PAST MEDICAL HISTORY: Significant for: 1. Type 2 diabetes mellitus, insulin-dependent. 2. Benign hypertension. 3. Chronic kidney disease stage 4. 4. Chronic low back pain. 5. Charcot joint. 6. Diabetic neuropathy. 7. Major depression, mild. MEDICATIONS ON ADMISSION: Bumex 1 mg b.i.d., amlodipine 10 mg daily, Plavix 75 daily, iron 210 daily, lovastatin 40 daily, Remeron 7.5 at bedtime, oxybutynin 5 daily, Requip 1 mg at bedtime, insulin 25 units daily, lidocaine patch for local application p.r.n. SOCIAL HISTORY: Nonsmoker, does not use any alcohol. PHYSICAL EXAMINATION: GENERAL: She is awake and alert and oriented. VITAL SIGNS: Graphic trend shows blood pressure of 157/66, pulse of 80, respirations 18, temperature 98.1. LUNGS: Diminished breath sounds. No wheezes, rales or rhonchi heard. HEART: Regular. ABDOMEN: Obese. EXTREMITIES: With trace redness in the left leg this morning. She also has a large wound on the left, which is draining foul smelling yellowish discharge. ASSESSMENT AND PLAN: 1. Poorly healing diabetic wound of the left heel with possible osteomyelitis. Wound culture will be ordered. A bone scan as well as MRI of the foot is ordered. The patient is placed on IV antibiotics. Consultation with Podiatry is ordered for debridement. 2. Type 2 diabetes mellitus. Blood sugars will be checked 4 times a day, coverage scale as well as insulin will be ordered. 3. Benign hypertension, controlled. 4. Chronic kidney disease. Continue close followup of her kidney function. [place], [place] PATIENT HISTORY AND PHYSICAL EXAM [id number] UN[facility] #: [id number] ROOM: [facility] DOCTOR: VALARIE BAPTISTE MD BIRTHDATE: [birth year] VALARIE BAPTISTE MD CM:HISPHYS:PATIENT HISTORY AND PHYSICAL EXAMINATION [id number] VALARIE BAPTISTE MD 11/11/17 0740 interface
--- NOTE | ~2017-10-22 | PR ---
[place], [place] PROGRESS NOTE NAME: SHERITA GOODEN [facility] #: [id number] UNIT #: [id number] ROOM: 411 DOCTOR: ROYAL KURTZAUGUST BIRTHDATE: [birth year] DOS: 10/24/2017 SUBJECTIVE: The patient is a 62-year-old female who is being followed for left plantar foot diabetic foot ulcer infection with concern for osteomyelitis as well as cellulitis of her left lower extremity. She has an MRI ordered. She underwent bedside debridement by Dr. Flores yesterday. Cultures are pending. They have gram-positive cocci possible skin contaminants. I have contacted microbiology and asked them to the workup the cultures. She was doing better today except for having worsening shortness of breath. Chest x-ray today shows CHF. She has had no nausea, vomiting or diarrhea. Just urinary frequency with diuretics. No cough. No fevers. No rash or itch. LABORATORY DATA: WBCs 10.7, platelets 435, sed rate of 100. CRP 2.47. Cultures as reviewed above. Urine culture with 10,000 colonies of gram-negative bacilli, likely a contaminant colonization. OBJECTIVE: VITAL SIGNS: Show temperature 97.4, pulse 92, respirations 20, BP 163/63. GENERAL: Alert and oriented 62-year-old female, in no acute distress. HEAD, EYES, EARS, NOSE AND THROAT: Normocephalic. No thrush. LUNGS: With few rales in the bases. Respirations are slightly labored. HEART: Regular rhythm. No murmur appreciated. She is on O2 via mask. ABDOMEN: Soft, nontender, nondistended. EXTREMITIES: +2 to 3 edema of bilateral lower extremities, left greater than right. Erythema of the left lower leg is improving. Left foot plantar wound with pale base, faint odor. No active purulent discharge. No areas of fluctuation. She has Charcot foot deformity of the left foot. SKIN: Otherwise warm, dry, free of rashes. ASSESSMENT: Left diabetic foot infection, status post incision and drainage at bedside Per Dr. Flores yesterday. PLAN: Follow up on the MRI that she is to have to rule out osteomyelitis. Follow up on cultures. Continue vancomycin and Zosyn pending culture results. AUGUST TESSIE PAIGE [place], [place] PROGRESS NOTE NAME: SHERITA GOODEN [facility] UNIT #: [id number] ROOM: 411 DOCTOR: ROYAL KURTZ BIRTHDATE: [birth year] TAIWO MACIAS MD CM:PNANN [id number] AUGUST ROYAL KURTZ 12/20/17 1000 interface
[~2017-10-22 19:24] MED LIST changes: +ANUSOL HC30 GM PO; +BISACODYL10 MG R; +GLIMEPIRIDE4 M1 PO; +HUMULIN R500 UNIT/1 SQ; +Lidoderm 5% Patch T; +MILK OF MA400 MG/51 PO; +MIRTAZAPINE15 M2 PO
[2017-10-22 19:25] VITALS: BP 171/48
[2017-10-22] MEDS ORDERED: ACIDOPHILUS PR1 EACH PO (19:44)
[2017-10-22] MEDS ORDERED: NORVASC10 MG PO (19:45)
[2017-10-22] MEDS ORDERED: BUMETANIDE1 MG PO (19:46)
[2017-10-22] MEDS ORDERED: DOXYCYCLINE100 M3 PO (19:46)
[2017-10-22] MEDS ORDERED: BISACODYL10 MG R (19:46)
[2017-10-22] MEDS ORDERED: AURYXIA210 MG PO (19:47)
[2017-10-22] MEDS ORDERED: 24 HOUR ALLER15.8 ML NS (19:48)
[2017-10-22] MEDS ORDERED: FLEET MINERAL133 ML R (19:48)
[2017-10-22] MEDS ORDERED: HUMULIN N100 UNIT/1 SQ (19:49)
[2017-10-22] MEDS ORDERED: LANTUS SOL100 UNIT/1 SC (19:50)
[2017-10-22] MEDS ORDERED: HYDROCORTISONE30 G4 T (19:50)
[2017-10-22] MEDS ORDERED: LINZESS145 MC1 PO (19:51)
[2017-10-22] MEDS ORDERED: LIDODERM1 EACH TD (19:51)
[2017-10-22] MEDS ORDERED: LOVASTATIN40 MG PO (19:52)
[2017-10-22] MEDS ORDERED: MILK OF MA400 MG/51 PO (19:53)
[2017-10-22] MEDS ORDERED: MIRTAZAPINE7.5 MG PO (19:53)
[2017-10-22] MEDS ORDERED: PRILOSEC20 M1 PO (19:54)
[2017-10-22] MEDS ORDERED: DITROPAN XL5 MG PO (19:54)
[2017-10-22] MEDS ORDERED: PLAVIX75 M1 PO (19:54)
[2017-10-22] MEDS ORDERED: ROPINIROLE HYDRO1 MG PO (19:55)
[2017-10-22] MEDS ORDERED: SENNA LAXATIVE1 EACH PO (19:55)
[2017-10-22] MEDS ORDERED: VITAMIN D350000 UNIT PO (19:56)
[2017-10-22 20:30] LABS: BASO # 0.1 10*3/uL (0.0-0.1); BASO % 0.5 % (0.0-1.0); EOS # 0.7 10*3/uL (0.0-0.4); HEMATOCRIT 33.2 % (37.0-47.0); HEMOGLOBIN 10.3 g/dl (12.0-16.0); LYMPH # 2.2 10*3/uL (1.3-4.4); LYMPH % 20.3 % (27.0-41.0); MEAN CELL VOLUME 85.6 fl (81.0-99.0); MEAN CORPUSCULAR HGB 26.5 pg (27.0-31.0); MEAN PLATELET VOLUME 10.1 fl (9.6-12.3); MONO # 1.1 10*3/uL (0.1-1.0); MONO % 10.2 % (3.0-9.0); NEUT # 6.6 10*3/uL (2.3-7.9); NEUT % 60.4 % (47.0-73.0); PLATELET COUNT AUTOMATED 458 10*3/uL (130-400); RED BLOOD COUNT 3.88 10*6/uL (4.10-5.10); RED CELL DISTRI WIDTH 12.9 % (0-14.5)
[2017-10-22 20:35] LABS: BILIRUBIN NEGATIVE (NEGATIVE); BLOOD NEGATIVE (NEGATIVE); CLARITY SL CLOUDY (CLEAR); COLOR YELLOW (YELLOW); GLUCOSE TRACE (NEGATIVE); KETONE NEGATIVE (NEGATIVE); LEUKO ESTERASE TRACE (NEGATIVE); NITRITE NEGATIVE (NEGATIVE); PH 5.5 (5.0-9.0); UROBILINOGEN 0.2 E.U./dl (0.2-1.0)
[2017-10-22 20:46] LABS: BACTERIA TRACE; WBC 16-20 wbc/hpf (0-5)
[2017-10-22 20:47] LABS: ALBUMIN 2.9 gm/dl (3.1-4.5); CREATININE 2.56 mg/dL (0.55-1.02); POTASSIUM 4.8 mmol/L (3.5-5.1); TOTAL PROTEIN 8.2 gm/dL (6.4-8.2)
[2017-10-23 00:03] VITALS: BP 169/89
[2017-10-23 00:10] VITALS: BP 153/75; BP 157/75
[2017-10-23] MEDS ORDERED: HUMULIN R500 UNIT/1 SQ (00:52)
[2017-10-23] MEDS ORDERED: LANTUS SOL100 UNIT/1 SQ (00:52)
[2017-10-23 08:00] VITALS: BP 167/66
[2017-10-23 12:00] VITALS: BP 120/40
[2017-10-23 16:00] VITALS: BP 154/48
[2017-10-23 20:00] VITALS: BP 148/47
[2017-10-24] VITALS (7 sets, daily range): BP systolic 120–163; BP diastolic 42–80
[2017-10-24 06:31] LABS: BASO # 0.1 10*3/uL (0.0-0.1); BASO % 0.7 % (0.0-1.0); EOS # 0.2 10*3/uL (0.0-0.4); EOS % 1.7 % (1.0-4.0); HEMATOCRIT 30.3 % (37.0-47.0); HEMOGLOBIN 9.5 g/dl (12.0-16.0); LYMPH # 1.5 10*3/uL (1.3-4.4); LYMPH % 14.1 % (27.0-41.0); MEAN CELL VOLUME 85.8 fl (81.0-99.0); MEAN CORPUSCULAR HGB 26.9 pg (27.0-31.0); MEAN CORPUSCULAR HGB CONC 31.4 g/dl (33.0-37.0); MEAN PLATELET VOLUME 9.8 fl (9.6-12.3); MONO # 0.6 10*3/uL (0.1-1.0); MONO % 5.6 % (3.0-9.0); NEUT # 8.1 10*3/uL (2.3-7.9); NEUT % 75.8 % (47.0-73.0); PLATELET COUNT AUTOMATED 435 10*3/uL (130-400); RED BLOOD COUNT 3.53 10*6/uL (4.10-5.10); RED CELL DISTRI WIDTH 12.8 % (0-14.5); WHITE BLOOD COUNT 10.7 10*3/uL (4.8-10.8)
[2017-10-24 17:38] LABS: CREATININE 2.7 mg/dL (0.55-1.02); POTASSIUM 5.7 mmol/L (3.5-5.1)
[2017-10-25] VITALS: BP 142/50
[2017-10-25 04:00] VITALS: BP 160/55
[2017-10-25 05:23] LABS: ALBUMIN 2.3 gm/dl (3.1-4.5); CREATININE 2.59 mg/dL (0.55-1.02); TOTAL PROTEIN 6.8 gm/dL (6.4-8.2)
[2017-10-25 05:28] LABS: POTASSIUM 4.4 mmol/L (3.5-5.1)
[2017-10-25 07:26] LABS: BASO # 0.1 10*3/uL (0.0-0.1); BASO % 0.5 % (0.0-1.0); EOS # 0.2 10*3/uL (0.0-0.4); EOS % 1.5 % (1.0-4.0); HEMATOCRIT 28.3 % (37.0-47.0); HEMOGLOBIN 9.1 g/dl (12.0-16.0); LYMPH % 12.7 % (27.0-41.0); MEAN CORPUSCULAR HGB 26.6 pg (27.0-31.0); MEAN CORPUSCULAR HGB CONC 32.2 g/dl (33.0-37.0); MEAN PLATELET VOLUME 9.6 fl (9.6-12.3); MONO # 0.8 10*3/uL (0.1-1.0); MONO % 5.3 % (3.0-9.0); NEUT # 12.4 10*3/uL (2.3-7.9); NEUT % 79.1 % (47.0-73.0); PLATELET COUNT AUTOMATED 453 10*3/uL (130-400); RED BLOOD COUNT 3.42 10*6/uL (4.10-5.10); RED CELL DISTRI WIDTH 12.6 % (0-14.5); WHITE BLOOD COUNT 15.7 10*3/uL (4.8-10.8)
[2017-10-25 07:34] LABS: MEAN CELL VOLUME 82.7 fl (81.0-99.0)
[2017-10-25 07:43] LABS: ACT PARTIAL THROMBO TIME 23.5 SECONDS (20.8-31.5)
[2017-10-25 08:00] VITALS: BP 152/46
[2017-10-25 12:00] VITALS: BP 149/48
[2017-10-25 16:00] VITALS: BP 140/78
[2017-10-25 20:59] LABS: CKMB 2.8 ng/ml (0.5-3.6)
[2017-10-25 21:03] LABS: TROPONIN I 0.342 ng/ml (<0.045)
[2017-10-26] VITALS: BP 143/46
[2017-10-26 05:48] LABS: CKMB 1.7 ng/ml (0.5-3.6); CREATININE 2.05 mg/dL (0.55-1.02)
[2017-10-26 05:50] LABS: TROPONIN I 0.399 ng/ml (<0.045)
[2017-10-26 06:00] LABS: BASO # 0.1 10*3/uL (0.0-0.1); BASO % 0.6 % (0.0-1.0); EOS # 0.7 10*3/uL (0.0-0.4); EOS % 5.9 % (1.0-4.0); HEMATOCRIT 29.6 % (37.0-47.0); HEMOGLOBIN 9.1 g/dl (12.0-16.0); LYMPH # 2.2 10*3/uL (1.3-4.4); LYMPH % 18.8 % (27.0-41.0); MEAN CORPUSCULAR HGB 26.5 pg (27.0-31.0); MEAN CORPUSCULAR HGB CONC 30.7 g/dl (33.0-37.0); MEAN PLATELET VOLUME 10.3 fl (9.6-12.3); MONO # 0.9 10*3/uL (0.1-1.0); MONO % 7.4 % (3.0-9.0); NEUT # 7.7 10*3/uL (2.3-7.9); NEUT % 66.1 % (47.0-73.0); PLATELET COUNT AUTOMATED 435 10*3/uL (130-400); RED BLOOD COUNT 3.43 10*6/uL (4.10-5.10); RED CELL DISTRI WIDTH 12.9 % (0-14.5); WHITE BLOOD COUNT 11.6 10*3/uL (4.8-10.8)
[2017-10-26 06:16] LABS: MEAN CELL VOLUME 86.3 fl (81.0-99.0)
[2017-10-26 09:00] VITALS: BP 167/64
[2017-10-26 12:00] VITALS: BP 160/66
[2017-10-26 16:00] VITALS: BP 163/54
[2017-10-26 20:00] VITALS: BP 164/57
[2017-10-27] VITALS: BP 159/61
[2017-10-27 08:00] VITALS: BP 172/70
[2017-10-27 12:00] VITALS: BP 180/74
== END 2017-10-27 16:15 | DRG 987 ==
LOC: ED 19:24 → ICCU 23:31 → 4E 23:31 → EDHOLD 23:31 → 5E 10-23 00:12 → ICCU 10-24 18:30 → 4E 10-25 18:01
PROVIDERS: Emergency Medicine; Internal Medicine; Internal Medicine Cardiovascular Disease; Podiatrist
PROC: 0K9W0ZZ Drainage of Left Foot Muscle, Open Approach (ICD-10-PCS; principal; 2017-10-23)
DX: E11.10 Type 2 diabetes mellitus with ketoacidosis without coma (principal); I50.31 Acute diastolic (congestive) heart failure; N18.4 Chronic kidney disease, stage 4 (severe); E11.610 Type 2 diabetes mellitus with diabetic neuropathic arthropathy; L03.116 Cellulitis of left lower limb; E11.65 Type 2 diabetes mellitus with hyperglycemia; M86.8X7 Other osteomyelitis, ankle and foot; L97.309 Non-pressure chronic ulcer of unspecified ankle with unspecified severity; L02.612 Cutaneous abscess of left foot; I13.0 Hypertensive heart and chronic kidney disease with heart failure and stage 1 through stage 4 chronic kidney disease, or unspecified chronic kidney disease; E11.22 Type 2 diabetes mellitus with diabetic chronic kidney disease; E11.40 Type 2 diabetes mellitus with diabetic neuropathy, unspecified; E11.69 Type 2 diabetes mellitus with other specified complication; E11.621 Type 2 diabetes mellitus with foot ulcer; B95.61 Methicillin susceptible Staphylococcus aureus infection as the cause of diseases classified elsewhere; F32.9 Major depressive disorder, single episode, unspecified; E11.51 Type 2 diabetes mellitus with diabetic peripheral angiopathy without gangrene; B96.1 Klebsiella pneumoniae [K. pneumoniae] as the cause of diseases classified elsewhere; E78.2 Mixed hyperlipidemia; G89.29 Other chronic pain; M54.5 Low back pain; I25.10 Atherosclerotic heart disease of native coronary artery without angina pectoris; J44.9 Chronic obstructive pulmonary disease, unspecified; Z88.2 Allergy status to sulfonamides; Z88.8 Allergy status to other drugs, medicaments and biological substances; Z91.041 Radiographic dye allergy status; Z79.899 Other long term (current) drug therapy; Z87.440 Personal history of urinary (tract) infections; Z90.49 Acquired absence of other specified parts of digestive tract; Z90.710 Acquired absence of both cervix and uterus; Z98.51 Tubal ligation status; Z87.891 Personal history of nicotine dependence; Z83.3 Family history of diabetes mellitus; Z80.1 Family history of malignant neoplasm of trachea, bronchus and lung; Z82.3 Family history of stroke; Z82.49 Family history of ischemic heart disease and other diseases of the circulatory system; Z83.6 Family history of other diseases of the respiratory system; Z82.0 Family history of epilepsy and other diseases of the nervous system

== ENCOUNTER 2021-04-28 21:29 | Inpatient (IN) | payer MEDICAID ==
[~2021-04-28] VITALS: Ht 157.4 cm; Wt 121.8 kg
[~2021-04-28 21:29] MED LIST changes: +24 HOUR ALLER15.8 ML NS; +ACIDOPHILUS PR1 EACH PO; +AURYXIA210 MG PO; +DOXYCYCLINE100 M3 PO; +FLEET MINERAL133 ML R; +HUMULIN N100 UNIT/1 SQ; +HYDROCORTISONE30 G4 T; +LANTUS SOL100 UNIT/1 SC; +LANTUS SOL100 UNIT/1 SQ; +LIDODERM1 EACH TD; +LINZESS145 MC1 PO; +MIRTAZAPINE7.5 MG PO; +NORVASC10 MG PO; +ROPINIROLE HYDRO1 MG PO; +SENNA LAXATIVE1 EACH PO; +VITAMIN D350000 UNIT PO
[2021-04-28 21:30] VITALS: BP 1124/84; BP 122/114
[2021-04-28 21:49] LABS: BASO # 0.1 10*3/uL (0.0-0.1); BASO % 0.6 % (0.0-1.0); EOS # 0.5 10*3/uL (0.0-0.4); EOS % 4.3 % (1.0-4.0); HEMATOCRIT 38.2 % (37.0-47.0); LYMPH # 1.5 10*3/uL (1.3-4.4); LYMPH % 13.1 % (27.0-41.0); MEAN CELL VOLUME 106.7 fl (81.0-99.0); MEAN CORPUSCULAR HGB 32.1 pg (27.0-31.0); MEAN CORPUSCULAR HGB CONC 30.1 g/dl (33.0-37.0); MEAN PLATELET VOLUME 10.9 fl (9.6-12.3); MONO # 0.8 10*3/uL (0.1-1.0); MONO % 6.6 % (3.0-9.0); NEUT # 8.6 10*3/uL (2.3-7.9); NEUT % 74.8 % (47.0-73.0); PLATELET COUNT AUTOMATED 214 10*3/uL (130-400); RED BLOOD COUNT 3.58 10*6/uL (4.10-5.10); RED CELL DISTRI WIDTH 15.8 % (0-14.5); WHITE BLOOD COUNT 11.6 10*3/uL (4.8-10.8)
[2021-04-28 21:51] VITALS: BP 132/66
[2021-04-28 22:05] LABS: ALBUMIN 3.2 gm/dl (3.1-4.5); CREATININE 8.88 mg/dL (0.55-1.02); TOTAL PROTEIN 7.8 gm/dL (6.4-8.2)
[2021-04-28 22:42] VITALS: BP 201/54
[2021-04-28 23:02] VITALS: BP 144/75
[2021-04-28 23:15] LABS: BILIRUBIN Negative (Negative); BLOOD 2+ (Negative); CLARITY Turbid (Clear); COLOR Yellow (Yellow); GLUCOSE Negative (Negative); KETONE Trace (Negative); LEUKO ESTERASE 3+ (Negative); NITRITE Negative (Negative); PH 6.5 (4.5-8.0); SPECIFIC GRAVITY 1.015 (1.001-1.030); UROBILINOGEN 0.2 E.U./dl (0.0-1.0)
[2021-04-28 23:21] LABS: WBC TNTC wbc/hpf (0-5)
[2021-04-29 06:32] VITALS: BP 116/44
[2021-04-29 09:30] VITALS: BP 133/68
[2021-04-29 11:00] VITALS: BP 126/60
[2021-04-29 12:30] VITALS: BP 134/94
[2021-04-29 14:00] VITALS: BP 154/72
[2021-04-29] MEDS ORDERED: JANUVIA100 MG PO (17:50)
[2021-04-29] MEDS ORDERED: GLYBURIDE5 MG PO (17:50)
[2021-04-29] MEDS ORDERED: LASIX40 MG PO (17:53)
[2021-04-29] MEDS ORDERED: HYDROCODONE-AC1 EAC1 PO (17:53)
[2021-04-29] MEDS ORDERED: LABETALOL HCL200 MG PO (17:54)
[2021-04-29] MEDS ORDERED: FENOFIBRATE145 M1 PO (17:54)
[2021-04-29] MEDS ORDERED: CLONIDINE HCL0.1 MG PO (17:55)
[2021-04-29] MEDS ORDERED: CIPRO500 MG PO (17:56)
[2021-04-29] MEDS ORDERED: LISINOPRIL40 MG PO (17:56)
[2021-04-29 19:45] VITALS: BP 128/53
[2021-04-30] VITALS: BP 133/44
[2021-04-30] MEDS ORDERED: CALCIUM ACETAT667 M2 PO (01:04)
[2021-04-30] MEDS ORDERED: STOOL SOFTENER100 M3 PO (01:08)
[2021-04-30] MEDS ORDERED: ERGOCAL62.5 MCG PO (01:13)
[2021-04-30] MEDS ORDERED: FISH OIL 1,0001 EAC4 PO (01:15)
[2021-04-30] MEDS ORDERED: MUCUS RELIEF600 MG PO (01:16)
[2021-04-30] MEDS ORDERED: NEURONTIN100 MG PO (01:16)
[2021-04-30] MEDS ORDERED: LANTUS SOL100 UNIT/1 SQ (01:19)
[2021-04-30] MEDS ORDERED: LEXAPRO20 MG PO (01:24)
[2021-04-30] MEDS ORDERED: MIDODRINE HCL10 MG PO (01:39)
[2021-04-30] MEDS ORDERED: PROTONIX40 MG PO (01:43)
[2021-04-30] MEDS ORDERED: REQUIP2 MG PO (01:44)
[2021-04-30] MEDS ORDERED: TOPAMAX25 M3 PO (01:45)
[2021-04-30] MEDS ORDERED: ZANAFLEX2 M1 PO (01:48)
[2021-04-30] MEDS ORDERED: ZOFRAN4 MG PO (01:49)
[2021-04-30 06:49] LABS: ALBUMIN 2.9 gm/dl (3.1-4.5); CREATININE 6.55 mg/dL (0.55-1.02); TOTAL PROTEIN 7.4 gm/dL (6.4-8.2)
[2021-04-30 06:55] LABS: POTASSIUM 4.7 mmol/L (3.5-5.1)
[2021-04-30 07:15] LABS: BASO # 0.1 10*3/uL (0.0-0.1); BASO % 0.7 % (0.0-1.0); EOS # 0.7 10*3/uL (0.0-0.4); EOS % 7.4 % (1.0-4.0); HEMATOCRIT 32.5 % (37.0-47.0); LYMPH # 2.6 10*3/uL (1.3-4.4); LYMPH % 30.2 % (27.0-41.0); MEAN CELL VOLUME 104.8 fl (81.0-99.0); MEAN CORPUSCULAR HGB 32.3 pg (27.0-31.0); MEAN CORPUSCULAR HGB CONC 30.8 g/dl (33.0-37.0); MEAN PLATELET VOLUME 11.2 fl (9.6-12.3); MONO # 0.9 10*3/uL (0.1-1.0); MONO % 10.4 % (3.0-9.0); NEUT # 4.5 10*3/uL (2.3-7.9); NEUT % 50.8 % (47.0-73.0); PLATELET COUNT AUTOMATED 220 10*3/uL (130-400); RED CELL DISTRI WIDTH 15.9 % (0-14.5); WHITE BLOOD COUNT 8.8 10*3/uL (4.8-10.8)
[2021-04-30 07:54] VITALS: BP 122/74
[2021-04-30 08:00] VITALS: BP 114/65
[2021-04-30 12:00] VITALS: BP 116/53
[2021-04-30 16:00] VITALS: BP 110/61; BP 148/55
[2021-04-30 20:00] VITALS: BP 113/57
[2021-05-01] VITALS: BP 118/46
[2021-05-01 07:39] LABS: CREATININE 7.88 mg/dL (0.55-1.02); POTASSIUM 5.1 mmol/L (3.5-5.1)
[2021-05-01 08:36] LABS: BASO % 0.6 % (0.0-1.0); EOS # 0.7 10*3/uL (0.0-0.4); HEMATOCRIT 34.4 % (37.0-47.0); LYMPH # 1.7 10*3/uL (1.3-4.4); LYMPH % 23.1 % (27.0-41.0); MEAN CELL VOLUME 102.4 fl (81.0-99.0); MEAN CORPUSCULAR HGB 31.8 pg (27.0-31.0); MEAN CORPUSCULAR HGB CONC 31.1 g/dl (33.0-37.0); MONO # 0.7 10*3/uL (0.1-1.0); MONO % 9.2 % (3.0-9.0); NEUT # 4.2 10*3/uL (2.3-7.9); NEUT % 57.7 % (47.0-73.0); PLATELET COUNT AUTOMATED 233 10*3/uL (130-400); RED BLOOD COUNT 3.36 10*6/uL (4.10-5.10); RED CELL DISTRI WIDTH 15.5 % (0-14.5); WHITE BLOOD COUNT 7.2 10*3/uL (4.8-10.8)
[2021-05-01 12:00] VITALS: BP 120/60
== END 2021-05-01 15:05 | DRG 194 ==
LOC: ED 21:29 → EDHOLD 04-29 00:41 → 5E 04-29 00:41 → EDHOLD 04-29 00:58 → 5E 04-29 14:04
PROVIDERS: Internal Medicine; Internal Medicine Nephrology; ADMIT Internal Medicine; ATTEND Internal Medicine
PROC: 5A1D70Z Performance of Urinary Filtration, Intermittent, Less than 6 Hours Per Day (ICD-10-PCS; principal; 2021-05-01)
DX: I13.2 Hypertensive heart and chronic kidney disease with heart failure and with stage 5 chronic kidney disease, or end stage renal disease (principal); E11.00 Type 2 diabetes mellitus with hyperosmolarity without nonketotic hyperglycemic-hyperosmolar coma (NKHHC); E11.22 Type 2 diabetes mellitus with diabetic chronic kidney disease; I50.33 Acute on chronic diastolic (congestive) heart failure; E11.65 Type 2 diabetes mellitus with hyperglycemia; N18.6 End stage renal disease; N39.0 Urinary tract infection, site not specified; R62.7 Adult failure to thrive; B96.20 Unspecified Escherichia coli [E. coli] as the cause of diseases classified elsewhere; F33.1 Major depressive disorder, recurrent, moderate; K21.00 Gastro-esophageal reflux disease with esophagitis, without bleeding; E11.51 Type 2 diabetes mellitus with diabetic peripheral angiopathy without gangrene; E11.40 Type 2 diabetes mellitus with diabetic neuropathy, unspecified; E87.5 Hyperkalemia; E87.8 Other disorders of electrolyte and fluid balance, not elsewhere classified; Z90.49 Acquired absence of other specified parts of digestive tract; Z99.2 Dependence on renal dialysis; Z90.710 Acquired absence of both cervix and uterus; Z88.2 Allergy status to sulfonamides; Z88.8 Allergy status to other drugs, medicaments and biological substances; Z83.3 Family history of diabetes mellitus; Z80.1 Family history of malignant neoplasm of trachea, bronchus and lung; Z91.041 Radiographic dye allergy status